=== PATIENT | male | born 1960 | race Caucasian/White ===

== ENCOUNTER 2020-04-08 10:38 | Emergency (ER) | payer OTHER, SELFPAY ==
[2020-04-08 10:45] VITALS: BP 171/78; PULSE 86; RESP 18; TEMP 36.6; O2SAT 95; BMI 27.9
--- NOTE | 2020-04-08 11:24 | ED_ITS ---
HPI - Back Pain/Injury General: Chief Complaint: Back Pain/Injury Stated Complaint: Back Pain/Injury, Trouble Walking, Weakness Time Seen by Provider: 04/08/20 11:14 History of Present Illness: HPI Narrative: Patient is a 59-year-old male who comes to the ED with lower back pain. Patient says symptoms started last Wednesday after he was bent over working on a project at home. He says when he stood up after that he felt some discomfort in his lower back that has continued to get worse. He now has pain that radiates down into the thighs of both right and left legs. He says he is having trouble walking and standing up due to pain. Denies any bladder or bowel incontinence, loss of sensation in the pelvic region or any weakness to extremities. Patient has taken muscle relaxers and a hydrocodone left over from a prior injury and he says nothing has helped. Describes the pain as in the middle of the lower back and its sharp pain. Any movement makes it worse. Associated symptoms: Deny abdominal pain, chills, dysuria, fatigue, fever(s), hematuria, nausea or vomiting Review of Systems Const: Denies: fever(s), chills or fatigue Eyes: Denies: change in vision or eye discomfort ENMT: Denies: throat pain, odynophagia, nasal discharge or nasal congestion Card: Denies: chest pain, palpitations, edema, swelling of feet/ankles, dyspnea on exertion or orthopnea Resp: Denies: dyspnea, productive cough or non-productive cough GI: Denies: abdominal pain, nausea, vomiting, diarrhea, constipation or hematochezia : Denies: flank pain, difficulty urinating, dysuria or hematuria Musc: Reports: back pain; Denies: neck pain or extremity swelling Skin/Breast: Denies: rash or new lesions Neuro: Denies: headache(s), numbness in extremities or weakness in extremities PFSH ED PFSH: Social History Smoking and tobacco status: never smoked Alcohol intake: never Physical Exam Const: COMMON NORMALS: patient oriented x3 and alert GENERAL APPEARANCE: cooperative; not comfortable (Uncomfortable due to pain in lower back.) HENMT: COMMON NORMALS: normocephalic HEAD & SCALP: normocephalic MOUTH: Normal oral and palatal mucosa present THROAT: posterior oropharynx normal and uvula midline Neck/C-Spine: COMMON NORMALS: supple GENERAL: Yes normal visual inspection Resp: COMMON NORMALS: normal respiratory effort, No retractions, No use of accessory muscles and clear to auscultation bilaterally AUSCULTATION: clear to auscultation bilaterally Cardio: COMMON NORMALS: regular rate, regular rhythm, S1 normal heart sound present, S2 normal heart sound present, No gallops present (Cardio), No clicks present (Cardio), No murmurs present (Cardio) and Peripheral pulses 2+ throughout RATE: regular rate RHYTHM: regular rhythm HEART SOUNDS: S1 normal heart sound present and S2 normal heart sound present PERIPHERAL PULSES: Peripheral pulses 2+ throughout GI: COMMON NORMALS: Normal to inspection, nondistended, normoactive bowel sounds present, Soft to palpation, non-tender and no masses PALPATION: Yes Soft to palpation : COMMON NORMALS: Yes no CVA tenderness BLADDER/KIDNEY EXAM: Yes no CVA tenderness Back/Pelvis: COMMON NORMALS: no CVA tenderness LUMBAR SPINE/LOWER BACK: Yes pain with ROM and Yes lumbar spinal tenderness Lumbar spinal tenderness location: L3, L4 and L5 Extremity: COMMON NORMALS: normal to inspection and no pedal edema Neuro: COMMON NORMALS: patient oriented x3 and moves all extremities SENSORIUM/ORIENTATION: Yes alert Skin: GENERAL SKIN EXAM: dry skin Course Vital Signs: Vital signs: Vital Signs Temperature 97.9 F 04/08/20 10:45 Pulse Rate 69 04/08/20 13:54 Respiratory Rate 17 04/08/20 13:54 Blood Pressure 127/80 04/08/20 13:54 Pulse Oximetry 91 04/08/20 13:54 MDM - Back Pain/Injury MDM Narrative: Medical decision making narrative: Patient is a 59-year-old male who comes to the ED with lower back pain that radiates down into both right and left upper legs. Patient describes a lot of pain when walking. Denies any bladder or bowel incontinence, pelvic anesthesia or weakness to extremities. CT lumbar spine performed and it showed Mild progression of multilevel central, subarticular and foraminal stenosis as above. Progressed since 2013. Patient currently sees a neurosurgeon in [place] for cervical spine. Patient was given 1 dose of Solu-Medrol and morphine while here in the ED. He had minimal improvement in pain. Patient was discharged with a prescription for Medrol Dosepak. He was told to take up to 800 mg of ibuprofen every 8 hours to help with pain and inflammation. He was told to contact his neurosurgeon to set up an appointment to reevaluate lower back pain. He was also sent with a CD of CT lumbar spine images to give to his neurosurgeon. Return to ED precautions given. Patient understood and agreed with plan. Imaging Data^: Other CT: Attestation: I personally reviewed and interpreted this imaging study as follows: Radiologist's impression: [address] [place] [address] CT Scan Report Signed Patient: Marcial Villaseñor Unit #: [id number] : 1960 Age/Sex: 59 / M ADM Date: 04/08/20 Loc: ER Room/Bed: Attending Dr: Ordering Provider/Ordering MD: Nemesio Andrade Date of Service: 04/08/20 Procedure(s): CT lumbar spine wo con* [id number] Accession Number(s): [id number] Report Number: [id number] WS: [id number] CT LUMBAR SPINE, noncontrast. HISTORY: low back pain TECHNIQUE: Contiguous 2.5 mm axial imaging are performed. Sagittal and coronal reformats are submitted and reviewed. All CT scans at [facility] use at least one of these dose optimization techniques: automated exposure control; mA and/or kV adjustment per patient size (includes targeted exams where dose is matched to clinical indication); or iterative reconstruction. IV contrast: None DLP: 2624.86 mGy.cm COMPARISON: MRI 05/03/2014 Mild straightening of the normal lumbar lordosis. Mild disc space narrowing at L2-3. Unfused apophysis versus remote fracture from the anterior L3 vertebral body. L1-2: Mild facet joint arthritis and narrowing of the foramen. No high-grade stenosis. L2-3: Mild annular disc bulging and osteophytic ridging. Calcification along the posterior longitudinal ligament with facet joint arthritis. Moderate central and subarticular recess stenosis, LEFT subarticular recess narrowing is greater than the RIGHT. Mild RIGHT and moderate LEFT foraminal stenosis. L3-4: Diffuse annular disc bulging and mild osteophytic ridging. Mild central and subarticular recess stenosis. Moderate to severe LEFT foraminal and moderate RIGHT foraminal stenosis. L4-5: Diffuse annular disc bulging and osteophytic ridging. Shallow central disc protrusion encroaching upon the ventral thecal sac. There is mild central stenosis. Moderate subarticular recess and bilateral foraminal stenosis. L5-S1: Central disc protrusion without significant stenosis. There is very slight encroachment upon the LEFT S1 nerve root but no displacement. LEFT renal cyst mid kidney [address]/CT lumbar spine wo con* [id number] IMPRESSION: 1. Mild progression of multilevel central, subarticular and foraminal stenosis as above. Progressed since 2013. 2. Moderate central and bilateral foraminal stenosis at L2-3 with moderate LEFT foraminal stenosis. 3. Moderate to severe LEFT foraminal and moderate RIGHT foraminal stenosis at L3-4. 4. Moderate bilateral subarticular recess and foraminal stenosis at L4-5. Dictated By: Priyanka Mtz DO Signed By: Priyanka Mtz DO Signed Date/Time: 04/08/20 1255 DD/ 1247 Discharge Plan Discharge Patient Disposition: Home Clinical Impression: Lumbar disc disease with radiculopathy Condition: Stable Prescriptions: New Medrol (Trevin) 4 mg tablets,dose pack See Rx Instructions .ROUTE .COMPLEX Qty: 21 RF: 0 No Action cyclobenzaprine 10 mg tablet 10 mg PO BID PRN (Reason: muscle spasm) 30 Days Qty: 60 RF: 2 lorazepam 1 mg tablet 1 mg PO DAILY PRN (Reason: Sleep) RF: 0 Discharge Orders: Discharge Order (Routine); Ordered 04/08/20 Ordered By: Nemesio Andrade Referrals: Alon Salazar MD [Primary Care Provider] - Discharge Diet: Regular Discharge Activity: Increase activity as tolerated Patient Instructions: Lumbar Disc Herniation (ED), Lumbar Radiculopathy (ED) Activity Restrictions/Additional Instructions: Follow-up with medical provider as directed. Contact your neurosurgeon today or tomorrow morning to discuss ED visit and lower back pain. Take medications as prescribed. You can take dele-zuz-idtimns ibuprofen up to 800 mg dose every 8 hours. Return to the ER or your medical provider if condition worsens. Please read and understand discharge instructions. If any questions, please ask. Coding Level of Care Code ED Answering Service Operator for Chg Fwd Exam Comprehensive
--- NOTE | 2020-04-08 11:35 | CT_ITS ---
WS: [id number] CT LUMBAR SPINE, noncontrast. HISTORY: low back pain TECHNIQUE: Contiguous 2.5 mm axial imaging are performed. Sagittal and coronal reformats are submitte d and reviewed. All CT scans at [facility] use at least one of these dose optimization te chniques: automated exposure control; mA and/or kV adjustment per patient size (includes targeted exa ms where dose is matched to clinical indication); or iterative reconstruction. IV contrast: None DLP: 2624.86 mGy.cm COMPARISON: MRI 05/03/2014 Mild straightening of the normal lumbar lordosis. Mild disc space narrowing at L2-3. Unfused apophysi s versus remote fracture from the anterior L3 vertebral body. L1-2: Mild facet joint arthritis and narrowing of the foramen. No high-grade stenosis. L2-3: Mild annular disc bulging and osteophytic ridging. Calcification along the posterior longitudin al ligament with facet joint arthritis. Moderate central and subarticular recess stenosis, LEFT subar ticular recess narrowing is greater than the RIGHT. Mild RIGHT and moderate LEFT foraminal stenosis. L3-4: Diffuse annular disc bulging and mild osteophytic ridging. Mild central and subarticular recess stenosis. Moderate to severe LEFT foraminal and moderate RIGHT foraminal stenosis. L4-5: Diffuse annular disc bulging and osteophytic ridging. Shallow central disc protrusion encroachi ng upon the ventral thecal sac. There is mild central stenosis. Moderate subarticular recess and bila teral foraminal stenosis. L5-S1: Central disc protrusion without significant stenosis. There is very slight encroachment upon t he LEFT S1 nerve root but no displacement. LEFT renal cyst mid kidney [address]/CT lumbar spine wo con* [id number] IMPRESSION: 1. Mild progression of multilevel central, subarticular and foraminal stenosis as above. Progressed since 2013. 2. Moderate central and bilateral foraminal stenosis at L2-3 with moderate LEF T foraminal stenosis. 3. Moderate to severe LEFT foraminal and moderate RIGHT foraminal stenosis at L3-4. 4. Moderate bilateral subarticular recess and foraminal stenosis at L4-5.
[2020-04-08 12:17] VITALS: BP 118/80; PULSE 75; RESP 16; O2SAT 92
[2020-04-08] MEDS: morphine 4 mg/mL SDV 1 mL IM (12:22)
[2020-04-08] MEDS: orphenadrine 30 mg/mL Inj 2 mL 60 MG IM (12:24)
[2020-04-08 13:39] VITALS: BP 127/80; PULSE 69; RESP 16; O2SAT 92
[2020-04-08 13:54] VITALS: BP 127/80; PULSE 69; RESP 17; O2SAT 91
== END 2020-04-08 13:55 | disposition home or self-care (01) ==
PROVIDERS: Emergency Provider Physician Assistant; PCP Family Medicine
DX: M51.16 Intervertebral disc disorders with radiculopathy, lumbar region (principal)
CPT/HCPCS: 12345; 72131; 96372; 99281; 99283; J2270; J2360; J2930

== ENCOUNTER 2022-08-13 09:19 | Outpatient (CLI) | payer BC, SELFPAY ==
--- NOTE | 2022-08-13 09:30 | MR_ITS ---
WS: [id number] MRI CERVICAL SPINE NONCONTRAST AND CONTRAST TECHNIQUE: Sagittal T1, T2 and STIR imaging. Axial T2, gradient, and fiesta imaging. Postgadolinium i maging was obtained. CLINICAL INFORMATION: worsening right sided neck pain s/p neck surgery COMPARISON: February 2011. FINDINGS: Straightening of the normal cervical lordosis. Prior postoperative changes anterior cervical interbod y fusion C4-C7 with interbody fusion grafts. Postoperative changes with additional fusion since 2010. Cord signal is normal. No high-grade central canal stenosis. No abnormal gadolinium enhancement. C2-C3: Mild facet arthropathy. Mild LEFT bony foraminal narrowing. Mild facet arthropathy. Spinal can al is patent. C3-C4: Small central disc protrusion with indentation on the cervical cord. Mild central canal stenos is. This is new compared to previous. Moderate LEFT and mild RIGHT bony foraminal narrowing. Mild fac et arthropathy. C4-C5: Prior postoperative changes. Spinal canal is patent. Mild bilateral bony foraminal narrowing. C5-C6: Prior postoperative changes. Mild to moderate LEFT and no significant RIGHT foraminal narrowin g. Spinal canal is patent. C6-C7: Moderate LEFT and mild RIGHT bony foraminal narrowing. Spinal canal is patent. C7-T1: Mild LEFT and no significant RIGHT foraminal narrowing. Spinal canal is patent. Visualized brain stem structures: Normal. Prevertebral soft tissues: Normal. MR/MR cervical spine wo/w [id number] IMPRESSION: 1. Small central disc protrusion C3-C4 with mild central canal stenosis and sl ight indentation cervical cord. This is new from the previous examinations. 2. Spinal canal is otherwise patent. 3. Multilevel moderate bony foraminal narrowing worse at LEFT C3-C4, LEFT C4-C 5, LEFT C5-C6 and LEFT C6-C7.
[2022-08-13] MEDS: gadobenate dimeglumine 20 mL vial IV (11:37)
== END 2022-08-13 09:20 | disposition home or self-care (01) ==
PROVIDERS: PCP Family Medicine; Visit Provider Family Medicine
DX: Z98.890 Other specified postprocedural states (principal); M50.21 Other cervical disc displacement, high cervical region; M48.02 Spinal stenosis, cervical region
CPT/HCPCS: 72156; A9577

== ENCOUNTER → 2023-05-27 14:47 | Outpatient (BNVA) | payer BC, SELFPAY | PROVIDERS: PCP Family Medicine; Visit Provider Family Medicine | DX: E16.2 Hypoglycemia, unspecified (principal); R51.9 Headache, unspecified; M54.2 Cervicalgia; Z98.890 Other specified postprocedural states | CPT/HCPCS: 82962 ==

== ENCOUNTER 2023-06-15 16:23 | Outpatient (CLI) | payer BC, SELFPAY ==
--- NOTE | 2023-06-15 16:30 | CT_ITS ---
WS: [id number] CT HEAD NONCONTRAST HISTORY: R51.9 - Headache, unspecified TECHNIQUE: Contiguous axial imaging performed through the brain in 2.5 mm imaging. Bone and soft tiss ue windows. Sagittal and coronal reformats reviewed. All CT scans at [facility] use at least one of these dose optimization techniques: automated exposure control; mA and/or kV adjustment per pa tient size (includes targeted exams where dose is matched to clinical indication); or iterative recon struction. DLP: 1064.11 mGy.cm COMPARISON: 03/13/2011 No acute intracranial hemorrhage, midline shift or mass effect. Very mild atrophy and small vessel ischemic disease. No prior infarcts. Ventricles: Normal size with no hydrocephalus. No inferior displacement of the cerebellar tonsils. Paranasal sinuses: As visualized are clear. Mastoid air cells: Well pneumatized. Calvarium and scalp: Skull is intact with no soft tissue edema or swelling. IMPRESSION: 1. No acute intracranial hemorrhage or edema. No mass effect. 2. No hydrocephalus. 3. Mild volume loss and small vessel ischemic disease.
== END 2023-06-15 16:24 | disposition home or self-care (01) ==
LOC: RAD 16:23
PROVIDERS: PCP Family Medicine; Visit Provider Family Medicine
DX: R51.9 Headache, unspecified (principal); I67.89 Other cerebrovascular disease
CPT/HCPCS: 70450

== ENCOUNTER → 2023-09-29 12:52 | Outpatient (BNVA) | payer BC, SELFPAY | PROVIDERS: PCP Family Medicine; Visit Provider Family Medicine | DX: E03.9 Hypothyroidism, unspecified (principal); K21.00 Gastro-esophageal reflux disease with esophagitis, without bleeding; F51.01 Primary insomnia | CPT/HCPCS: 80053; 84443; 85025 ==

== ENCOUNTER → 2023-10-13 09:31 | Outpatient (BNVA) | payer BC, SELFPAY | PROVIDERS: PCP Family Medicine; Visit Provider Anesthesiology Pain Medicine | DX: M51.16 Intervertebral disc disorders with radiculopathy, lumbar region (principal) | CPT/HCPCS: 72110; 82270 ==

== ENCOUNTER 2024-07-16 14:29 | Emergency (ER) | payer BC, SELFPAY ==
[2024-07-16 14:45] VITALS: BP 141/95; PULSE 86; TEMP 36.7; O2SAT 94; BMI 29.4
--- NOTE | 2024-07-16 15:20 | ED_ITS ---
HPI - Abdominal Pain 2 General: Chief Complaint: Abdominal Pain Stated Complaint: rt side pain Time Seen by Provider: 07/16/24 14:46 Source: patient and family Mode of arrival: ambulatory Limitations: no limitations History of Present Illness: Patient is a nice 63-year-old male presents to ED today along with significant other for complaints of right sided abdominal pain over the past 5 days or so. Patient states he woke up with pain and it has been constant and significant since. It seemed to worsen yesterday and into today. It does not seem to be affected by eating. He is not having any vomiting or changes in his bowel movements. No urinary symptoms. No fevers. He denies previous abdominal surgeries. Was told at one point he had diverticulitis found on a routine colonoscopy (?). MD elicited complaint: abdominal pain Pertinent past history: none Onset (ago): day(s) Pain Consistency: constant Location: RUQ and RLQ Severity: moderate Radiation: none Migration to: no migration Exacerbating factors: nothing Relieving factors: nothing Associated Symptoms: Reports no associated symptoms; Denies change in bowel habits, chills, constipation, diarrhea, dysuria, fever(s), nausea and vomiting Related Data Home Medications ?Medication ?Instructions ?Recorded ?Confirmed amitriptyline 50 mg tablet 50 mg PO BEDTIME 07/16/24 0 07/16/24 duloxetine 30 mg capsule,delayed 30 mg PO DAILY 07/16/24 release esomeprazole magnesium 20 mg 20 mg PO DAILY 07/16/24 0 07/16/24 capsule,delayed release Allergies Allergy/AdvReac Type Severity Reaction Status Date / Time No Known Allergies Allergy Verified 07/16/24 14:49 Review of Systems 2 Const: Denies: fever(s), chills, body aches, fatigue or malaise Card: Denies: chest pain Resp: Denies: dyspnea GI: Reports: abdominal pain; Denies: nausea, vomiting, diarrhea, constipation or change in bowel habits : Denies: flank pain, difficulty urinating, dysuria, urinary frequency, urinary urgency or urinary hesitancy Musc: Denies: neck pain, back pain, extremity pain, extremity swelling, joint swelling or joint redness Skin/Breast: Denies: rash Neuro: Denies: headache(s), numbness in extremities, weakness in extremities, sensory changes or difficulty walking PFS ED 2 PFSH: Medical History Neck pain with history of cervical spinal surgery Spinal stenosis of cervical region with radiculopathy Social History Smoking and tobacco/nicotine status: never used tobacco/nicotine Alcohol intake: never Substance/Drug Use: never Physical Exam 2 Const: COMMON NORMALS: no acute distress, average body habitus, patient oriented x3, no limitations, healthy appearing, alert and well nourished G ENERAL APPEARANCE: cooperative Eye: COMMON NORMALS: no scleral icterus Neck/C-Spine: COMMON NORMALS: no lymphadenopathy Resp: COMMON NORMALS: normal respiratory effort and clear to auscultation bilaterally AUSCULTATION: clear to auscultation bilaterally Cardio: COMMON NORMALS: regular rate and regular rhythm RATE: regular rate RHYTHM: regular rhythm GI: COMMON NORMALS: Normal to inspection, nondistended, normoactive bowel sounds present, Soft to palpation, No hepatosplenomegaly present and no masses INSPECTION: Yes normal to inspection AUSCULTATION: Yes normoactive bowel sounds PALPATION: Yes Soft to palpation, Yes Tenderness to palpation present (GI) (R middle abdomen. RUQ), Yes Guarding due to palpation present (GI), No Rigid due to palpation and Yes No hepatosplenomegaly present : COMMON NORMALS: Yes no CVA tenderness BLADDER/KIDNEY EXAM: Yes no CVA tenderness Back/Pelvis: COMMON NORMALS: no CVA tenderness Extremity: GENERAL: Yes normal exam except as noted Neuro: COMMON NORMALS: patient oriented x3 SENSORIUM/ORIENTATION: Yes alert Skin: COMMON NORMALS: no rashes or lesions noted GENERAL SKIN EXAM: no rashes or lesions noted Course 2 Vital Signs: Vital signs: Vital Signs Temperature 98.1 F 07/16/24 14:45 Pulse Rate 82 07/16/24 15:22 Blood Pressure 121/81 07/16/24 16:40 Pulse Oximetry 95 07/16/24 16:40 Oxygen Delivery Me thod Room Air 07/16/24 16:40 MDM - Abdominal Pain Medical Decision Making Patient is a 63-year-old male here for right sided abdominal pain over the past several days. Vital signs are stable upon arrival. His blood work here overall is unremarkable. CT abdomen and pelvis showing no acute process. Incidental findings were discussed with patient. Patient will be allowed discharge with return precautions. Medical Records I reviewed the patient's medical records. Lab Data I reviewed the patient's lab results. 07/16/24 14:50 07/16/24 14:50 Labs/Radiology: Radiology Impressions Abdomen/Pelvis CT 07/16/24 15:28 IMPRESSION: 1. No acute abdominopelvic process identified. 2. Few scattered colonic diverticula without evidence of acute diverticulitis. 3. 2.3 cm simple appearing left renal cyst. 4. 3 mm pulmonary nodule within right lower lobe. For patients at low risk (minimal or absent history of smoking and of other known risk factors), no routine follow-up is indicated. For patients at high risk (history of smoking or of other known risk factors), consider optional CT Chest at 12 months. (Reference: Arie) COMMENTS: Consistent with the [employer]'s Incidental Findings Committee white paper (J Am Enrique Radiol 2018): Any incidental renal lesion less than 1 cm or classified as too small to characterize, or any incidental cystic renal lesion characterized as simple-appearing, is likely benign. No follow-up imaging is recommended for these lesions per consensus recommendations based on imaging criteria. REFERENCES: Arie Chawla, et al. Guidelines for Management of Incidental Pulmonary Nodules Detected on CT Images: From the Fleischner Society 2017. Radiology. 2017;284(1):228-243. Laboratory Results WBC 6.28 10^3/uL (3.29-11.43) 07/16/24 14:50 RBC 4.97 10^6/uL (3.85-5.65) 07/16/24 14:50 Hgb 14.60 g/dL (11.27-16.99) 07/16/24 14:50 Hct 44.1 % (37-53) 07/16/24 14:50 MCV 88.7 fl (82-101) 07/16/24 14:50 MCH 29.4 pg (27-33) 07/16/24 14:50 MCHC 33.1 g/dL (30-55) 07/16/24 14:50 RDW 11.9 % (12.1-15.1) L 07/16/24 14:50 Plt Count 261 10^3/cmm (157-399) 07/16/24 14:50 MPV 8.9 fL (7.4-10.4) 07/16/24 14:50 Neut % (Auto) 53.7 % 07/16/24 14:50 Lymph % (Auto) 35.4 % 07/16/24 14:50 [place] % (Auto) 8.0 % 07/16/24 14:50 Eos % (Auto) 2.2 % 07/16/24 14:50 Baso % (Auto) 0.5 % 07/16/24 14:50 Neut # (Auto) 3.38 10^3/uL (1.8-7.7) 07/16/24 14:50 Lymph # (Auto) 2.2 10^3/uL (0.8-4.8) 07/16/24 14:50 [place] # (Auto) 0.5 10^3/uL (0.2-0.9) 07/16/24 14:50 Eos # (Auto) 0.1 10^3/uL (0.0-0.8) 07/16/24 14:50 Baso # (Auto) 0.0 10^3/uL (0.0-0.1) 07/16/24 14:50 Nucleated RBC % (auto) 0 % 07/16/24 14:50 Nucleated RBCs # 0.0 /100WBC 07/16/24 14:50 Sodium 136 mmol/L (136-145) 07/16/24 14:50 Potassium 3.8 mmol/L (3.5-5.1) 07/16/24 14:50 Chloride 103 mmol/L (98-107) 07/16/24 14:50 Carbon Dioxide 22 mmol/L (22-29) 07/16/24 14:50 Anion Gap 14.8 (5-19) 07/16/24 14:50 BUN 10 mg/dL (8-23) 07/16/24 14:50 Creatinine 0.9 mg/dL (0.7-1.2) 07/16/24 14:50 GFR Calculation 85.8 mL/min (90-130) L 07/16/24 14:50 Glucose 128 mg/dL (65-115) H 07/16/24 14:50 Calculated Osmolality 283 mOsm/kg (285-295) L 07/16/24 14:50 Calcium 9.3 mg/dL (8.5-10.5) 07/16/24 14:50 Total Bilirubin 0.3 mg/dL (0.15-1.2) 07/16/24 14:50 AST 18 U/L (0-40) 07/16/24 14:50 ALT 18 U/L (0-41) 07/16/24 14:50 Alkaline Phosphatase 99 U/L (40-130) 07/16/24 14:50 Total Protein 6.7 g/dL (6.6-8.7) 07/16/24 14:50 Albumin 4.3 g/dL (3.5-5.2) 07/16/24 14:50 Globulin 2.4 g/dL (1.3-4.6) 07/16/24 14:50 Lipase 16 U/L (13-60) 07/16/24 14:50 Urine Color Yellow (Yellow) 07/16/24 16:00 Urine Appearance Clear (CLEAR) 07/16/24 16:00 Urine pH 5.5 (5-7) 07/16/24 16:00 Ur Specific [place] 1.020 (1.005-1.030) 07/16/24 16:00 Urine Protein Negative (Negative) 07/16/24 16:00 Urine Glucose (UA) Negative (Normal) 07/16/24 16:00 Urine Ketones Trace (Negative) 07/16/24 16:00 Urine Blood Negative (Negative) 07/16/24 16:00 Urine Nitrate Negative (Negative) 07/16/24 16:00 Urine Bilirubin Negative (Negative) 07/16/24 16:00 Urine Urobilinogen 1.0 mg/dL (Negative) 07/16/24 16:00 Ur Leukocyte Esterase Negative (Negative) 07/16/24 16:00 Amorphous Sediment Not Reportable 07/16/24 16:00 All radiology interpretation(s) finalized by discharge Discharge Plan Discharge Patient Disposition: Home Clinical Impression: Right-sided abdominal pain of unknown etiology Condition: Stable Prescriptions: No Action amitriptyline 50 mg tablet 50 mg PO BEDTIME duloxetine 30 mg capsule,delayed release(DR/EC) 30 mg PO DAILY esomeprazole magnesium 20 mg capsule,delayed release(DR/EC) 20 mg PO DAILY Rx Instructions: take 1 capsule BY MOUTH EVERY DAY Discharge Orders: Discharge ED (Routine); Ordered 07/16/24 Ordered By: Jenni Pineda Referrals: Alon Salazar MD [Primary Care Provider] - Patient Instructions: Abdominal Pain (ED) Activity Restrictions/Additional Instructions: As we discussed, your blood work here overall was unremarkable. CT abdomen and pelvis did not show any acute abnormalities. Incidental findings were discussed with you including a small right lower lobe pulmonary nodule, small hiatal hernia, small simple left kidney cyst. He may follow-up with primary care regarding the pulmonary nodule. As we discussed, you may return to the emergency department for any worsening or new/concerning symptoms you may have. I hope you begin to feel better soon. Print Language: Yoruba Coding Level of Care Code ED International Nurse for Dana Hodges
[2024-07-16 15:22] VITALS: PULSE 82; O2SAT 95
[2024-07-16 15:25] LABS: Basophils % 0.5 %; Eosinophils # 0.1 10^3/uL (0.0-0.8); Eosinophils % 2.2 %; Hematocrit 44.1 % (37-53); Lymphocytes # 2.2 10^3/uL (0.8-4.8); Lymphocytes % 35.4 %; Mean Corpuscular HGB Conc 33.1 g/dL (30-55); Mean Corpuscular Hemoglobin 29.4 pg (27-33); Mean Corpuscular Volume 88.7 fl (82-101); Mean Platelet Volume 8.9 fL (7.4-10.4); Monocytes # 0.5 10^3/uL (0.2-0.9); Neutrophils # 3.38 10^3/uL (1.8-7.7); Neutrophils % 53.7 %; Nucleated Red Blood Cells % 0 %; Platelet Count 261 10^3/cmm (157-399); Red Blood Count 4.97 10^6/uL (3.85-5.65); Red Cell Distribution Width 11.9 % (12.1-15.1); White Blood Count 6.28 10^3/uL (3.29-11.43)
--- NOTE | 2024-07-16 15:28 | CTR_ITS ---
PROCEDURE INFORMATION: Exam: CT Abdomen And Pelvis With Contrast Exam date and time: 07/16/2024 3:51 PM Age: 63 years old Clinical indication: Abdominal pain; Localized; Right upper quadrant (ruq); Additional info: R abdominal pain TECHNIQUE: Imaging protocol: Computed tomography of the abdomen and pelvis with contrast. Radiation optimization: All CT scans at this facility use at least one of these dose optimization techniques: automated exposure control; mA and/or kV adjustment per patient size (includes targeted exams where dose is matched to clinical indication); or iterative reconstruction. Contrast material: OMNI 350; Contrast volume: 100 ml; Contrast route: INTRAVENOUS (IV); COMPARISON: CR XR lumbar spine min 4V [id number] 10/13/2023 9:35 AM RADIATION DOSE METRICS: Total DLP (mGy-cm): 835.47 FINDINGS: Lungs: 3 mm pulmonary nodule within right lower lobe (5/3). Diaphragm: Small hiatal hernia. Liver: Few subcentimeter hypodensities within the liver, too small to characterize but statistically may represent simple hepatic cysts. Gallbladder and biliary ducts: Gallbladder is partially distended. Pancreas: Normal. No ductal dilation. Spleen: Normal. No splenomegaly. Adrenal glands: Normal. No mass. Kidneys and ureters: 2.3 cm simple left renal cyst. No hydronephrosis or obstructing calculi bilaterally. Stomach and bowel: Few scattered colonic diverticula, without CT evidence of acute diverticulitis. Appendix: No evidence of appendicitis. Intraperitoneal space: Unremarkable. No free air. No significant fluid collection. Vasculature: Unremarkable. No abdominal aortic aneurysm. Lymph nodes: Unremarkable. No enlarged lymph nodes. Urinary bladder: Unremarkable as visualized. Reproductive: Unremarkable as visualized. Bones/joints: Multilevel degenerative changes within the visualized lumbar spine with mild straightening of normal lumbar lordosis. Soft tissues: Tiny fat containing umbilical hernia. CT/CT abdomen pelvis w con* [id number] IMPRESSION: 1. No acute abdominopelvic process identified. 2. Few scattered colonic diverticula without evidence of acute diverticulitis. 3. 2.3 cm simple appearing left renal cyst. 4. 3 mm pulmonary nodule within right lower lobe. For patients at low risk (minimal or absent history of smoking and of other known risk factors), no routine follow-up is indicated. For patients at high risk (history of smoking or of other known risk factors), consider optional CT Chest at 12 months. (Reference: Arie) COMMENTS: Consistent with the [place] [employer]'s Incidental Findings Committee white paper (J Am Enrique Radiol 2018): Any incidental renal lesion less than 1 cm or classified as too small to characterize, or any incidental cystic renal lesion characterized as simple-appearing, is likely benign. No follow-up imaging is recommended for these lesions per consensus recommendations based on imaging criteria. REFERENCES: Arie Chawla, et al. Guidelines for Management of Incidental Pulmonary Nodules Detected on CT Images: From the Fleischner Society 2017. Radiology. 2017;284(1):228-243.
[2024-07-16 15:36] LABS: Alanine Aminotransferase 18 U/L (0-41); Albumin Level 4.3 g/dL (3.5-5.2); Alkaline Phosphatase 99 U/L (40-130); Anion Gap 14.8 (5-19); Aspartate Amino Transferase 18 U/L (0-40); Blood Urea Nitrogen 10 mg/dL (8-23); Calcium 9.3 mg/dL (8.5-10.5); Carbon Dioxide 22 mmol/L (22-29); Chloride 103 mmol/L (98-107); Creatinine Clr Calc Pharmacy 98.7432; Globulin 2.4 g/dL (1.3-4.6); Glomerular Filtration Rate 85.8 mL/min (90-130); Glucose 128 mg/dL (65-115); Lipase 16 U/L (13-60); Osmolality Calculated 283 mOsm/kg (285-295); Potassium 3.8 mmol/L (3.5-5.1); Sodium 136 mmol/L (136-145); Total Bilirubin 0.3 mg/dL (0.15-1.2); Total Protein 6.7 g/dL (6.6-8.7)
[2024-07-16] MEDS: morphine 4 mg/mL SDV 1 mL IVP (15:45)
[2024-07-16] MEDS: ondansetron 2 mg/ML SDV 2 mL 4 MG IVP (15:45)
[2024-07-16] MEDS: iohexol 350 mg/mL 500 mL Btl (per mL) IV (15:51)
[2024-07-16 16:08] LABS: Add Urine Microscopic? NO
[2024-07-16 16:10] LABS: Bilirubin Urine Negative (Negative); Blood Urine Negative (Negative); Glucose Urine UA Negative (Normal); Ketones Urine Trace (Negative); Leukocyte Esterase Urine Negative (Negative); Nitrate Urine Negative (Negative); Protein Urine Negative (Negative); Urine Appearance Clear (CLEAR); Urine Color Yellow (Yellow); pH Urine 5.5 (5-7)
[2024-07-16 16:18] LABS: Charge for UA Resulting for Rev
[2024-07-16 16:40] VITALS: BP 121/81; O2SAT 95
[2024-07-16 17:49] VITALS: BP 137/88; PULSE 76; O2SAT 98
== END 2024-07-16 17:49 | disposition home or self-care (01) ==
PROVIDERS: Emergency Provider Physician Assistant; PCP Family Medicine
DX: R10.9 Unspecified abdominal pain (principal)
CPT/HCPCS: 74177; 80053; 81003; 83690; 85025; 96374; 96375; 99285; J2270; J2405

== ENCOUNTER → 2024-08-29 14:52 | Outpatient (BNVA) | payer BC, SELFPAY | PROVIDERS: PCP Family Medicine; Visit Provider Orthopaedic Surgery | DX: M51.16 Intervertebral disc disorders with radiculopathy, lumbar region (principal); M54.2 Cervicalgia | CPT/HCPCS: 72050; 72110 ==

== ENCOUNTER 2024-09-18 09:02 | Outpatient (RCR) | payer BC, SELFPAY | END 2024-09-20 23:59 | disposition home or self-care (01) | LOC: SPT 09:02 | PROVIDERS: Visit Provider Orthopaedic Surgery | DX: M54.2 Cervicalgia (principal); G89.29 Other chronic pain | CPT/HCPCS: 97162 ==

== ENCOUNTER 2024-09-21 05:00 | Outpatient (RCR) | payer BC, SELFPAY | END 2024-10-18 13:47 | disposition home or self-care (01) | LOC: SPT 05:00 | PROVIDERS: Visit Provider Orthopaedic Surgery | DX: M54.2 Cervicalgia (principal); G89.29 Other chronic pain | CPT/HCPCS: 97110; 97140; 97530 ==

== ENCOUNTER → 2024-11-14 10:34 | Outpatient (BNVA) | payer BC, SELFPAY | PROVIDERS: PCP Family Medicine; Visit Provider Family Medicine | DX: I88.9 Nonspecific lymphadenitis, unspecified (principal) | CPT/HCPCS: 85025 ==

== ENCOUNTER 2024-11-23 10:35 | Outpatient (CLI) | payer BC, SELFPAY ==
--- NOTE | 2024-11-23 10:45 | US_ITS ---
WS: [id number] ULTRASOUND SOFT TISSUES LEFT inguinal region. HISTORY: R59.0 - Localized enlarged lymph nodes COMPARISON: CT 07/16/2024 TECHNIQUE: 2-D and color Doppler imaging is submitted. Lymph nodes are identified in the LEFT inguinal region. These lymph nodes are not significantly enlarged but they are very ill-defined. Moderate amount of soft tissue edema through the tissues of the LEFT inguinal region without increased vascularity. No collection to suggest an abscess. US/US soft tissue/extremity [id number] IMPRESSION: 1. Moderate amount of edema in the soft tissues of the LEFT inguinal region. N o abscess. Phlegmon versus focal reactive edema. 2. There are a few adjacent small lymph nodes in the inguinal region which are poorly defined and probably reactive. These findings are new since the CT of . 3. Recommendation: Consider evaluation by CT abdomen and pelvis with IV contra st to better evaluate the pelvis and LEFT inguinal region.
== END 2024-11-23 10:36 | disposition home or self-care (01) ==
LOC: RAD 10:42
PROVIDERS: PCP Family Medicine; Visit Provider Family Medicine
DX: R59.0 Localized enlarged lymph nodes (principal); R60.0 Localized edema; R93.89 Abnormal findings on diagnostic imaging of other specified body structures
CPT/HCPCS: 76882

== ENCOUNTER 2024-11-30 15:02 | Outpatient (CLI) | payer BC, SELFPAY ==
[2024-11-30] MEDS: iohexol 350 mg/mL 500 mL Btl (per mL) PO (15:42)
--- NOTE | 2024-11-30 16:00 | CTR_ITS ---
PROCEDURE INFORMATION: Exam: CT Abdomen And Pelvis Without And With Contrast Exam date and time: 11/30/2024 4:08 PM Age: 64 years old Clinical indication: Other: Localized enlarged lymph nodes; Left lower groin area swollen lymph node? X 1 month; Additional info: R59.0 - localized enlarged lymph nodes TECHNIQUE: Imaging protocol: Computed tomography of the abdomen and pelvis without and with contrast. Radiation optimization: All CT scans at this facility use at least one of these dose optimization techniques: automated exposure control; mA and/or kV adjustment per patient size (includes targeted exams where dose is matched to clinical indication); or iterative reconstruction. Contrast material: OMNI 350; Contrast volume: 100 ml; Contrast route: INTRAVENOUS (IV); COMPARISON: CT abdomen pelvis w con* [id number] 07/16/2024 3:51 PM RADIATION DOSE METRICS: Total DLP (mGy-cm): 1182.79 FINDINGS: Lungs: The lung bases are clear. Diaphragm: Small hiatus hernia. Liver: Hepatic steatosis. The liver is enlarged measuring about 20.5 cm. There are two small hypodense lesions in the right lobe of the liver measuring up to 1.2 cm and represent cysts. Gallbladder and biliary ducts: The gallbladder is unremarkable with no calcified stones visualized and no strandy inflammatory changes surrounding the gallbladder. Pancreas: The pancreas is normal in appearance. No evidence of pancreatic ductal dilatation. Spleen: The spleen is normal in appearance. Adrenal glands: The adrenal glands are normal in appearance. Kidneys and ureters: The kidneys are normal in appearance. There is a simple appearing 3.7 cm left renal cortical cyst. No evidence of hydronephrosis or hydroureter. No nephroureteral calculi are identified. Stomach and bowel: The small bowel loops are not thickened and are nondilated. There is colonic diverticulosis but no evidence of diverticulitis. Appendix: The appendix is normal in appearance. No evidence of appendicitis. Intraperitoneal space: Unremarkable. No free air. No significant fluid collection. Vasculature: Unremarkable. No abdominal aortic aneurysm. Lymph nodes: Several small retroperitoneal lymph nodes which measure up to 1.2 cm. There is adenopathy in the left external iliac chain measuring up to 1.6 cm in short axis dimension. There is suspected necrotic left inguinal adenopathy measuring up to 2.9 cm. The adenopathy is likely reactive. Urinary bladder: There is urinary bladder wall thickening which could be secondary to underdistention versus cystitis. Consider UA. Reproductive: Unremarkable as visualized. Bones/joints: Multilevel chronic degenerative changes in the visualized spine. No acute osseous lesions identified. Soft tissues: Unremarkable. CT/CT abdomen pelvis wo/w [id number] IMPRESSION: 1. Adenopathy in the left inguinal, left external iliac chain and retroperitoneum. There is a large necrotic appearing lymph node in the left groin. The adenopathy is likely reactive. 2. Hepatic steatosis and hepatomegaly. 3. Urinary bladder wall thickening which could be secondary to underdistention versus cystitis. Consider UA. 4. Colonic diverticulosis but no evidence of diverticulitis. COMMENTS: Consistent with the [employer]'s Incidental Findings Committee white paper (J Am Enrique Radiol 2018): Any incidental renal lesion less than 1 cm or classified as too small to characterize, or any incidental cystic renal lesion characterized as simple-appearing, is likely benign. No follow-up imaging is recommended for these lesions per consensus recommendations based on imaging criteria.
[2024-11-30 16:04] LABS: Blood Urea Nitrogen 15 mg/dL (8-23)
[2024-11-30] MEDS: iohexol 350 mg/mL 500 mL Btl (per mL) IV (16:11)
== END 2024-11-30 15:03 | disposition home or self-care (01) ==
PROVIDERS: PCP Family Medicine; Visit Provider Family Medicine
DX: R59.0 Localized enlarged lymph nodes (principal); K76.0 Fatty (change of) liver, not elsewhere classified; K57.30 Diverticulosis of large intestine without perforation or abscess without bleeding
CPT/HCPCS: 74178; 82565; 84520

== ENCOUNTER 2025-02-11 07:56 | Emergency (ER) | payer BC, SELFPAY ==
[2025-02-11 08:05] VITALS: BP 142/88; PULSE 84; RESP 18; TEMP 36.7; O2SAT 92; BMI 29.0
--- NOTE | 2025-02-11 08:21 | XRR_ITS ---
PROCEDURE INFORMATION: Exam: XR Lumbosacral Spine Exam date and time: 02/11/2025 8:31 AM Age: 64 years old Clinical indication: Pain; Lumbago; Additional info: Chronic lower back pain with RT hip involvement; Pain wraps around anteriorly to RT hip; No known injury; PT states pain has gotten/been worse over the last week TECHNIQUE: Imaging protocol: Radiologic exam of the lumbosacral spine. Views: 2 or 3 views. COMPARISON: CR XR lumbar spine min 4V [id number] 10/13/2023 9:35 AM FINDINGS: Bones/joints: There is a chronic deformity of the anterior superior endplate of L3 with adjacent irregular osseous density which may reflect a limbus vertebrae. There are stable [id number] degenerative changes of the endplates at L2-L3, L3-L4 and L4-L5 with disc space narrowing, endplate sclerosis and marginal osteophyte formation. There is stable grade 1 retrolisthesis of L3 on L4. No acute fractures. There are Schmorl's nodes within the inferior endplates of T12 and L1 Soft tissues: Unremarkable. XR/XR lumbar spine 2-3V* [id number] IMPRESSION: 1. No acute fracture. 2. Unchanged [id number] lumbar spondylosis
--- NOTE | 2025-02-11 08:21 | XRR_ITS ---
PROCEDURE INFORMATION: Exam: XR Right Hip Exam date and time: 02/11/2025 8:31 AM Age: 64 years old Clinical indication: Hip pain; Right hip; Additional info: Chronic lower back pain with RT hip involvement; Pain wraps around anteriorly to RT hip; No known injury; PT states pain has gotten/been worse over the last week TECHNIQUE: Imaging protocol: Radiologic exam of the right hip. Views: 1 view hip with pelvis when performed. COMPARISON: CT abdomen pelvis wo/w [id number] 11/30/2024 4:08 PM FINDINGS: Bones/joints: Alignment is within normal limits. There is no evidence of acute fracture or dislocation. Small sclerotic foci are seen within the right femoral neck, suspicious for bone islands Soft tissues: Unremarkable. XR/XR hip RT 2-3V wo/w pel* [id number] IMPRESSION: No acute osseous abnormality
[2025-02-11 08:22] VITALS: BP 142/88; PULSE 79; RESP 16; O2SAT 93
--- NOTE | 2025-02-11 08:37 | ED_ITS ---
HPI - Back Pain/Injury General: Chief Complaint: Back Pain/Injury Stated Complaint: lower back pain Time Seen by Provider: 02/11/25 08:03 Source: patient Mode of arrival: ambulatory Limitations: no limitations History of Present Illness: 64-year-old male whose had a history of back pain in the past states he did some heavy lifting 2 weeks ago and after that he has been having increased pain of his lower back going down his right side. States he saw his PCP last week started him on steroids states had some improvement but is continued to worsen he states the pain is sharp in nature worse with movement he denies any bowel or bladder incontinence denies any fevers Associated symptoms: Deny abdominal pain, chills, fever(s), nausea or vomiting Related Data Home Medications ?Medication ?Instructions ?Recorded ?Confirmed amitriptyline 50 mg tablet 50 mg PO BEDTIME 07/16/24 0 02/07/25 duloxetine 30 mg capsule,delayed 30 mg PO DAILY 02/07/25 release Previous Rx's ?Medication ?Instructions ?Recorded esomeprazole magnesium 20 mg See Rx Instructions .Arslan augustine 09/11/24 capsule,delayed release .COMPLEX #90 caps lactulose 10 gram/15 mL oral 20 g (30 mL) PO BID #1,20 0 mL 12/07/24 solution cyclobenzaprine 10 mg tablet See Rx Instructions .Arslan augustine 01/05/25 .COMPLEX #60 tabs prednisone 20 mg tablet 20 mg PO .COMPLEX #24 tabs 0 02/07/25 naproxen 500 mg tablet (Naprosyn) 500 mg PO BID PRN pa in #20 tabs 02/11/25 oxycodone-acetaminophen 7.5 mg-325 1 tab PO Q12H PRN p ain #14 tabs 02/11/25 mg tablet (Percocet) Allergies Allergy/AdvReac Type Severity Reaction Status Date / Time No Known Allergies Allergy Verified 02/07/25 15:03 Review of Systems Const: Denies: fever(s), chills, body aches or change in appetite ENMT: Denies: throat pain or dental pain Card: Denies: chest pain Resp: Denies: dyspnea GI: Denies: abdominal pain, nausea, vomiting or diarrhea : Denies: difficulty urinating Musc: Reports: neck pain; Denies: back pain PFSH ED PFSH: Medical History Neck pain with history of cervical spinal surgery Spinal stenosis of cervical region with radiculopathy Social History Smoking and tobacco/nicotine status: never used tobacco/nicotine Alcohol intake: never Substance/Drug Use: never Physical Exam Const: COMMON NORMALS: no acute distress, patient oriented x3 and healthy appearing HENMT: COMMON NORMALS: normocephalic and atraumatic HEAD & SCALP: normocephalic and atraumatic Eye: COMMON NORMALS: conjunctivae normal CONJUNCTIVA: Yes conjunctivae normal Neck/C-Spine: COMMON NORMALS: full ROM and supple Chest: COMMONS NORMALS: normal inspection of the chest Resp: COMMON NORMALS: normal respiratory effort, No retractions, No use of accessory muscles and clear to auscultation bilaterally AUSCULTATION: clear to auscultation bilaterally Cardio: COMMON NORMALS: regular rate, regular rhythm and No murmurs present (Cardio) RATE: regular rate RHYTHM: regular rhythm GI: COMMON NORMALS: Normal to inspection, nondistended, normoactive bowel sounds present, Soft to palpation, non-tender and no masses PALPATION: Yes Soft to palpation Back/Pelvis: OTHER: Tenderness over right lower back no midline tenderness no saddle anesthesia Extremity: COMMON NORMALS: normal to inspection and full ROM Neuro: COMMON NORMALS: patient oriented x3, moves all extremities and no focal motor deficits Psych: COMMON NORMALS: mental status grossly normal, Normal thought process present and cooperative THOUGHT PROCESS: Normal thought process present Skin: COMMON NORMALS: no rashes or lesions noted and no wounds GENERAL SKIN EXAM: no rashes or lesions noted Course Vital Signs: Vital signs: Vital Signs Temperature 98.1 F 02/11/25 08:05 Pulse Rate 79 02/11/25 08:22 Respiratory Rate 18 02/11/25 08:45 Blood Pressure 142/88 02/11/25 08:22 Pulse Oximetry 93 02/11/25 08:22 Oxygen Delivery Me thod Room Air 02/11/25 08:05 MDM - Back Pain/Injury Medical Decision Making Patient presents here with low back pain with sciatica he has pain is improved here after pain meds imaging here showed no acute fractures. He is scheduled for an MRI in a week and a half. He has no signs of cord compression or epidural abscess no bowel or bladder incontinence no saddle anesthesia. Will prescribe pain medication along with anti-inflammatories he is to ice his back he is to follow-up with his PCP I went over his images and plan he understands and agrees Medical Records I reviewed the patient's medical records. XR interpretation done by ED provider, pending radiology final review ED provider radiology interpretation(s): xr right hip: no acute findings xr lumbar spine: no acute findings Discharge Plan Discharge Patient Disposition: Home Clinical Impression: Back pain Qualifiers: Back pain location: low back pain Chronicity: acute Back pain laterality: right Sciatica presence: with sciatica Sciatica laterality: sciatica of right side Qualified Code(s): M54.41 - Lumbago with sciatica, right side Condition: Stable Prescriptions: New naproxen [Naprosyn] 500 mg tablet 500 mg PO BID PRN (Reason: pain) Qty: 20 0RF oxycodone-acetaminophen [Percocet] 7.5-325 mg tablet 1 tab PO Q12H PRN (Reason: pain) Qty: 14 0RF No Action prednisone 20 mg tablet 20 mg PO .COMPLEX Qty: 24 0RF Rx Instructions: 4 tabs day 1 and 2, decrease by one half tablet daily until gone.4, 4, 3 1/2, 3, 2 1/2.... esomeprazole magnesium 20 mg capsule,delayed release(DR/EC) See Rx Instructions .ROUTE .COMPLEX Qty: 90 1RF Dose Instruction: take 1 capsule BY MOUTH EVERY DAY Rx Instructions: take 1 capsule BY MOUTH EVERY DAY lactulose 10 gram/15 mL solution 20 g PO BID Qty: 1200 1RF cyclobenzaprine 10 mg tablet See Rx Instructions .ROUTE .COMPLEX Qty: 60 2RF Dose Instruction: TAKE ONE TABLET BY MOUTH TWICE DAILY as needed for MUSCLE SPASMS * take primarily AT BEDTIME or end of work DAY * Rx Instructions: TAKE ONE TABLET BY MOUTH TWICE DAILY as needed for MUSCLE SPASMS * take primarily AT BEDTIME or end of work DAY * amitriptyline 50 mg tablet 50 mg PO BEDTIME duloxetine 30 mg capsule,delayed release(DR/EC) 30 mg PO DAILY Discharge Orders: Discharge ED (Routine); Ordered 02/11/25 Ordered By: Christianne Canales Referrals: Alon Salazar MD [Primary Care Provider, [facility]] - 4-7 days Discharge Diet: Advance as tolerated Discharge Activity: Resume usual activity Patient Instructions: Back Pain (ED), Opioid Safety Print Language: Kiswahili Coding Level of Care Code ED [employer] for Dana Hodges
[2025-02-11 08:45] VITALS: RESP 18
[2025-02-11] MEDS: morphine 4 mg/mL SDV 1 mL IM (08:45)
[2025-02-11 09:44] VITALS: BP 147/70; PULSE 71; O2SAT 96
--- NOTE | 2025-02-12 15:26 | DCPLANNER ---
messaged ortho for er f/u
== END 2025-02-11 09:44 | disposition home or self-care (01) ==
PROVIDERS: Emergency Provider Emergency Medicine; PCP Family Medicine
DX: M54.41 Lumbago with sciatica, right side (principal)
CPT/HCPCS: 36415; 72100; 73502; 96372; 99284; J1100; J1885; J2270; J9999

== ENCOUNTER 2025-02-21 07:17 | Outpatient (CLI) | payer BC, SELFPAY ==
--- NOTE | 2025-02-21 07:15 | MR_ITS ---
WS: [id number] MRI LUMBAR SPINE NONCONTRAST TECHNIQUE: Sagittal T1, T2 and STIR imaging. Axial T1 and T2 imaging. CLINICAL INFORMATION: M51.16 - Intervertebral disc disorders with radiculopathy... COMPARISON: MRI 2014 FINDINGS: Mild lumbar curve. No acute compression. Schmorl's nodes in the lumbar spine. Disc bulging worse at L2-3 L3-4 and L4-5. Disc desiccation has progressed throughout the lumbar spine compared to previous. Cervical fusion visualized on the center director imaging. L1-L2: Mild annular bulging. Mild facet arthropathy. Spinal canal is patent. Slight effacement of the ventral thecal sac. Foramen are patent. L2-L3: Broad-based central disc protrusion with moderate central canal stenosis and impingement of the traversing L3 nerve roots bilaterally. Moderate facet arthropathy. Foramen are patent. Central disc protrusion was present previously but has progressed with progressed central canal stenosis at this level. Recommend spine surgery consultation. L3-L4: Mild disc bulging with a small new LEFT subarticular protrusion impinging the traversing LEFT L4 nerve root. Mild central canal stenosis. This is progressed compared to previous. Mild bilateral foraminal narrowing. Moderate facet arthropathy. L4-L5: Mild annular bulging. Mild central canal stenosis with impingement on the traversing L5 nerve roots bilaterally progressed compared to previous. Moderate facet arthropathy. LEFT foraminal protrusion slightly impinges the exiting LEFT L4 nerve root with mild to moderate LEFT foraminal narrowing. Mild RIGHT foraminal narrowing. L5-S1: Mild annular bulging. Tiny shallow central protrusion. Spinal canal is patent. Moderate facet arthropathy. Foramen are patent. Visualized pelvic bony structures: Normal. Paravertebral soft tissues: Normal. 3.5 cm LEFT renal cyst. MR/MR lumbar spine wo con* [id number] IMPRESSION: 1. Moderate central canal stenosis L2-3 progressed compared to previous. Recom mend spine surgery consultation. Broad-based central protrusion at this level. 2. New LEFT subarticular protrusion L3-4 impinges the traversing LEFT L4 nerve root with mild central canal stenosis. Findings at this level are also new or progressed. 3. Progressed mild central canal stenosis L4-5 with a shallow central disc pro trusion and impingement of the traversing L5 nerve roots. 4. LEFT foraminal protrusion L4-5 with mild to moderate foraminal narrowing an d impingement of the exiting LEFT L4 nerve root. 5. Moderate facet arthropathy L4-L5 and L5-S1.
== END 2025-02-21 07:18 | disposition home or self-care (01) ==
LOC: RAD 07:18
PROVIDERS: Absent Provider Orthopaedic Surgery; PCP Family Medicine; Visit Provider Family Medicine
DX: M51.16 Intervertebral disc disorders with radiculopathy, lumbar region (principal); M48.02 Spinal stenosis, cervical region; M48.061 Spinal stenosis, lumbar region without neurogenic claudication; M51.370 Other intervertebral disc degeneration, lumbosacral region with discogenic back pain only; M47.897 Other spondylosis, lumbosacral region; N28.1 Cyst of kidney, acquired
CPT/HCPCS: 72148

== ENCOUNTER → 2025-02-22 16:51 | Outpatient (BNVA) | payer BC, SELFPAY | PROVIDERS: PCP Family Medicine; Visit Provider Orthopaedic Surgery | DX: Z01.818 Encounter for other preprocedural examination (principal) | CPT/HCPCS: 36415; 80053; 81001; 85025 ==

== ENCOUNTER 2025-03-12 08:43 | Day surgery (SDC) | payer BC, SELFPAY ==
[2025-03-12] VITALS (12 sets, daily range): BP systolic 109–131; BP diastolic 64–94; PULSE 66–81; RESP 10–18; TEMP 36.1–36.4; O2SAT 91–96; BMI 29.2
--- NOTE | 2025-03-12 09:32 | W.PM.OPSUD ---
Surgery/Procedure H&P Update DATE OF PROCEDURE: March 12, 2025 DATE H&P PERFORMED: 02/22/25 H&P UPDATE INFORMATION: I have reviewed H&P completed within last 30 days, I have examined patient prior to procedure and No changes to prior documentation PREOP DIAGNOSIS: Lumbar stenosis with neurogenic claudication PLANNED PROCEDURE: Operation Date: 03/12/25 10:20 Proposed Procedures p Lumbar Spine Decompression Lumbar Decompression(Not Applicable) - Jonny Harris DO
--- NOTE | 2025-03-12 09:42 | ANES.PREANE2 ---
Pre-Anesthetic Assessment Height/Weight: Height 5 ft 10 in Weight 204 lb Temp Pulse Resp BP Pulse Ox O2 Del Method 97.5 F L 66 16 131/87 96 Room Air 03/12/25 08:55 03/12/25 08:55 03/12/25 08:55 03/12/25 08:55 03/12/25 08:55 03/12/25 08:55 Preop Diagnosis: Lumbar stenosis with neurogenic claudication Operation Date: 03/12/25 10:20 Proposed Procedures p Lumbar Spine Decompression Lumbar Decompression(Not Applicable) - Jonny Harris, DO Was Beta Mark taken within 24 hours: N/A Was Clonidine taken within 24 hours: N/A Last intake: Intake Last Liquid Date 03/11/25 Last Liquid Time 23:30 Last Solid Date 03/11/25 Last Solid Time 23:00 Social No alcohol and No tobacco Exam alert, oriented x 3, clear to auscultation bilaterally and regular rate & rhythm Airway Submandibular: within normal limits Cervical ROM: within normal limits Mallampati: Class III Dentition: full Comments: Comments: Front bottom tooth was loose and recently had it adhered to other tooth. States it is no longer loose Anesthetic Plan ASA status: 2 Anesthesia: General Other: No prior issues with anesthesia NPO since yesterday evening History of GERD on Nexium Denies any cardiac issues Patient states he snores really bad and believes he has sleep apnea but has not been diagnosed Recent labs 02/22/2025 reviewed acceptable for procedure Plan for GETA Medications/Allergies Home Medications ?Medication ?Instructions ?Recorded ?Confirmed ?Last Taken ?Type lactulose 10 gram/15 mL oral 20 g (30 mL) PO BID #1,200 mL 12/07/24 03/12/25 Unknown Rx solution oxycodone-acetaminophen 7.5 mg-325 1 tab PO Q8H PRN pain 15 days #45 02/26/25 03/12/25 03/11/25 Rx mg tablet (Percocet) tabs cyclobenzaprine 10 mg tablet 10 mg PO BID PRN muscle spasms 03/08/25 03/12/25 Unknown History esomeprazole magnesium 20 mg 20 mg PO DAILY 03/08/25 03/12/25 Unknown History capsule,delayed release Allergies Allergy/AdvReac Type Severity Reaction Status Date / Time No Known Allergies Allergy Verified 03/12/25 09:00 Current Medications Generic Name Dose Route Start Last Admin Trade Name Freq PRN Reason Stop Dose Admin Sodium Chloride 1,000 mls @ 30 mls/hr 03/12/25 09:00 03/12/25 09:09 Sodium Chloride 0.9% IV 03/13/25 08:59 30 mls/hr .Q24H ALE Administration PFSH Anesthesia Medical History Neck pain with history of cervical spinal surgery Spinal stenosis of cervical region with radiculopathy Social History Smoking and tobacco/nicotine status: never used tobacco/nicotine Alcohol intake: never Substance/Drug Use: never
[2025-03-12] MEDS: ceFAZolin 2,000 mg SDV 2000 MG IVP (09:54)
[2025-03-12] MEDS: lidocaine-epi 1% 20 mL INJ INJECTION (10:20)
--- NOTE | 2025-03-12 11:40 | P.OP_ITS ---
Operative Report Date of procedure: March 12, 2025 Pre-op diagnosis: Lumbar stenosis with neurogenic claudication Post-op diagnosis: same Procedure done: 1. L2-3 laminectomy and partial facetectomy 2. L3-4 laminectomy partial facetectomy 3. L4-5 laminectomy partial facetectomy Surgeon: Jonny Harris DO Estimated blood loss (mL): 25 Procedure: 1. L2-3 laminectomy and partial facetectomy 2. L3-4 laminectomy partial facetectomy 3. L4-5 laminectomy partial facetectomy Patient is brought to the operative suite. After undergoing anesthesia they are placed in the prone position. All areas of impingement are well padded. Patient is then prepped and draped in the normal sterile fashion. A skin incision is made over the L2/3 level. This is confirmed under c-arm guidance. A series of dilators are passed and the tubular retractor is docked on the L2 lamina. A bovie is used to clear the soft tissue off the lamina and the L 2/3 facet joint. A high speed michi is then used to perform the laminectomy and take down the medial aspect of the L 2/3 facet joint. A kerrison rongeure was then used to take down the remaining lamina and smooth the edge of the laminectomy up to the point where the ligamentum flavum attaches. Attention was then brought to the medial aspect of the facet joint. The remaining medial aspect of the superior and inferior aspect of the facet joint were taken down with the kerrison from the pedicle of L2 to L 3. The facet joint had significant hypertrophy. Attention was then brought to the Ligamentum Flavum. The ligament was taken down from the lamina of L2 to L3 and out medially to the remaining facet joint. The ligament was thick. The dura was then exposed. The dura was in good repair. The L2 nerve was then traced with a curette out the L2/3 foramen and found to be adequately decompressed. The L3 nerve was traced with a curette around the L3 pedicle. The lateral recess was opened with a kerrison helping to further decompress the L3 nerve. Wound is then irrigated copiously with saline and surgiflo is used to stop any bleeding. The tubular retractor is removed A skin incision is made over the L3/4 level. This is confirmed under c-arm guidance. A series of dilators are passed and the tubular retractor is docked on the L3 lamina. A bovie is used to clear the soft tissue off the lamina and the L 3/4 facet joint. A high speed michi is then used to perform the laminectomy and take down the medial aspect of the L 3/4 facet joint. A kerrison rongeure was then used to take down the remaining lamina and smooth the edge of the laminectomy up to the point where the ligamentum flavum attaches. Attention was then brought to the medial aspect of the facet joint. The remaining medial aspect of the superior and inferior aspect of the facet joint were taken down with the kerrison from the pedicle of L3 to L 4. The facet vivi int had significant hypertrophy. Attention was then brought to the Ligamentum Flavum. The ligament was taken down from the lamina of L3 to L4 and out medially to the remaining facet joint. The ligament was thick. The dura was then exposed. The dura was in good repair. The L3 nerve was then traced with a curette out the L3/4 foramen and found to be adequately decompressed. The L4 nerve was traced with a curette around the L4 pedicle. The lateral recess was opened with a kerrison helping to further decompress the L4 nerve. Wound is then irrigated copiously with saline and surgiflo is used to stop any bleeding. The tubular retractor is removed A skin incision is made over the L4/5 level. This is confirmed under c-arm guidance. A series of dilators are passed and the tubular retractor is docked on the L4 lamina. A bovie is used to clear the soft tissue off the lamina and the L 4/5 facet joint. A high speed michi is then used to perform the laminectomy and take down the medial aspect of the L 4/5 facet joint. A kerrison rongeure was then used to take down the remaining lamina and smooth the edge of the laminectomy up to the point where the ligamentum flavum attaches. Attention was then brought to the medial aspect of the facet joint. The remaining medial aspect of the superior and inferior aspect of the facet joint were taken down with the kerrison from the pedicle of L4 to L 5. The facet joint had significant hypertrophy. Attention was then brought to the Ligamentum Flavum. The ligament was taken down from the lamina of L4 to L5 and out medially to the remaining facet joint. The ligament was thick. The dura was then exposed. The dura was in good repair. The L4 nerve was then traced with a curette out the L4/5 foramen and found to be adequately decompressed. The L5 nerve was traced with a curette around the L5 pedicle. The lateral recess was opened with a kerrison helping to further decompress the L5 nerve. Wound is then irrigated copiously with saline and surgiflo is used to stop any bleeding. The tubular retractor is removed and the wound is closed with vicryl and monocryl suture. Steri strips were applied. A sterile dressing is then placed. Patient was then placed in the supine position and transferred to the PACU in stable condition.
--- NOTE | 2025-03-12 12:52 | ANE.PACU2 ---
Inpatient post-anesthesia follow up: Airway intact: Yes Vital signs: Temperature 97.6 F Pulse Rate 81 Respiratory Rate 18 Blood Pressure 127/94 Pulse Oximetry 94 Oxygen Delivery Me thod Room Air Oxygen Flow Rate 6 Fraction of Inspir ed Oxygen Hydration adequate: Yes Nausea and vomiting: No Pain level: 1 Mental status: Baseline
== END 2025-03-12 12:52 | disposition home or self-care (01) ==
PROVIDERS: PCP Family Medicine; Visit Provider Orthopaedic Surgery
PROC: (CPT 63005; principal; 2025-03-12 10:10)
DX: M48.062 Spinal stenosis, lumbar region with neurogenic claudication (principal); K21.9 Gastro-esophageal reflux disease without esophagitis; Z79.891 Long term (current) use of opiate analgesic
CPT/HCPCS: 63047; 63048 ×2; 72100; 76000; J0690; J1100; J1885; J2003; J2250; J2405; J2704; J3010; J3490; J7030; J9999

== ENCOUNTER 2025-03-14 02:45 | Inpatient (IN) | payer BC, SELFPAY ==
[2025-03-14] VITALS (38 sets, daily range): BP systolic 103–159; BP diastolic 75–103; PULSE 101–144; RESP 13–37; TEMP 36.9–39.1; O2SAT 90–95; BMI 29.4
--- NOTE | 2025-03-14 03:03 | CTR_ITS ---
PROCEDURE INFORMATION: Exam: CT Abdomen And Pelvis With Contrast Exam date and time: 03/14/2025 4:00 AM Age: 64 years old Clinical indication: Abdominal pain; Additional info: Abd pain/distended/, exam concerning for peritonintis TECHNIQUE: Imaging protocol: Computed tomography of the abdomen and pelvis with contrast. Radiation optimization: All CT scans at this facility use at least one of these dose optimization techniques: automated exposure control; mA and/or kV adjustment per patient size (includes targeted exams where dose is matched to clinical indication); or iterative reconstruction. Contrast material: OMNI 350; Contrast volume: 100 ml; Contrast route: INTRAVENOUS (IV); COMPARISON: CT abdomen pelvis wo/w [id number] 11/30/2024 4:08 PM RADIATION DOSE METRICS: Total DLP (mGy-cm): 1007.13 FINDINGS: Lungs: Streaky bilateral dependent atelectasis noted. No consolidation. Liver: 1.2 cm cyst noted in the right hepatic lobe. There is a subcentimeter focus of decreased attenuation in the hepatic dome, which is too small to characterize. No cirrhotic features. Gallbladder and biliary ducts: Normal. No calcified stones. No ductal dilation. Pancreas: Normal. No ductal dilation. Spleen: Normal. No splenomegaly. Adrenal glands: Nonspecific mass measuring 1.5 cm seen in the left adrenal gland. The right adrenal glands unremarkable. Kidneys and ureters: Symmetric enhancement of the kidneys. Left kidney cyst measuring 3.5 cm noted. No kidney stone. No hydronephrosis. Stomach and bowel: Distended gastric cavity and esophagus with fluid levels noted. Air-fluid levels are also noted in the proximal colon. There are multiple diverticuli in the sigmoid colon, in association with mild wall thickening and stranding of the pericolic fat, consistent with acute diverticulitis. There is a small amount of pneumoperitoneum, and small amount of fluid extending along the left paracolic gutter. There is diverticulosis without evidence of diverticulitis. Appendix: No evidence of appendicitis. Intraperitoneal space: See Stomach and bowel findings. Vasculature: Unremarkable. No abdominal aortic aneurysm. Lymph nodes: Unremarkable. No enlarged lymph nodes. Urinary bladder: The urinary bladder is decompressed with a Bourne catheter in place. Reproductive: Unremarkable as visualized. Bones/joints: Degenerative changes of the spine seen. Soft tissues: Left groin surgical changes noted. CT/CT abdomen pelvis w con* [id number] IMPRESSION: 1. Imaging findings of perforated acute sigmoid diverticulitis, with small amount of pneumoperitoneum, in small amount of fluid extending along the left paracolic gutter. 2. Nonspecific focus of decreased attenuation in the hepatic dome, which is too small to characterize. 3. Incompletely characterized left adrenal mass. Further evaluation with contrast enhanced abdominal MRI should be considered. COMMENTS: Consistent with the [employer]'s Incidental Findings Committee white paper (J Am Enrique Radiol 2018): Any incidental renal lesion less than 1 cm or classified as too small to characterize, or any incidental cystic renal lesion characterized as simple-appearing, is likely benign. No follow-up imaging is recommended for these lesions per consensus recommendations based on imaging criteria.
[2025-03-14] MEDS: HYDROmorphone 0.5 MG/0.5 ML INJ 2 MG IVP (03:15)
[2025-03-14] MEDS: ondansetron 2 mg/ML SDV 2 mL 4 MG IVP ×3 (03:15→18:14)
[2025-03-14 03:19] LABS: Hematocrit 45.5 % (37-53); Hemoglobin 14.60 g/dL (11.27-16.99); Mean Corpuscular HGB Conc 32.1 g/dL (30-55); Mean Corpuscular Hemoglobin 29.3 pg (27-33); Mean Corpuscular Volume 91.2 fl (82-101); Nucleated Red Blood Cells % 0 %; Platelet Count 343 10^3/cmm (157-399); Red Blood Count 4.99 10^6/uL (3.85-5.65); White Blood Count 14.72 10^3/uL (3.29-11.43)
[2025-03-14 03:36] LABS: Alanine Aminotransferase 26 U/L (0-41); Albumin Level 4.4 g/dL (3.5-5.2); Alkaline Phosphatase 91 U/L (40-130); Aspartate Amino Transferase 41 U/L (0-40); Blood Urea Nitrogen 14 mg/dL (8-23); Calcium 9.3 mg/dL (8.5-10.5); Carbon Dioxide 23 mmol/L (22-29); Chloride 101 mmol/L (98-107); Creatinine Clr Calc Pharmacy 109.6799; Globulin 2.9 g/dL (1.3-4.6); Glucose 126 mg/dL (65-115); Lipase 12 U/L (13-60); Osmolality Calculated 290 mOsm/kg (285-295); Sodium 139 mmol/L (136-145); Total Protein 7.3 g/dL (6.6-8.7)
[2025-03-14 03:37] LABS: Lactic Sepsis W/Reflex 2.4 mmol/L (0.5-2.2)
[2025-03-14 03:40] LABS: Anion Gap 19.2 (5-19); Potassium 4.2 mmol/L (3.5-5.1)
--- NOTE | 2025-03-14 03:44 | ED_ITS ---
HPI - General Adult 2 General: Chief complaint: Abdominal Pain Stated complaint: abdomen pain Time Seen by Provider: 03/14/25 02:47 History of Present Illness: Patient is a 64-year-old male who presents with a chief complaint of abdominal distention, severe abdominal pain that is worsened in the last day or 2. Patient has also been nauseated and vomiting, noted that vomit smelled like feces. Patient has not had any chest pain but states that breathing is painful as it makes his abdominal pain worse. Of note, he had spinal surgery on Wednesday: Procedure done: 1. L2-3 laminectomy and partial facetec elisa 2. L3-4 laminectomy partial facetectomy 3. L4-5 laminectomy partial facetectomy Surgeon: Jonny Harris DO Patient has also had difficulty urinating. He states he does have some pain with urination. He has not had a bowel movement since Wednesday though he states he has been passing gas. Per , patient has not had any lower extremity weakness, numbness, saddle anesthesia or paresthesia, loss of bowel or bladder control. They have not noted any erythema, purulent drainage or increased pain from surgical site. Related Data Home Medications ?Medication ?Instructions ?Recorded ?Confirmed cyclobenzaprine 10 mg tablet 10 mg PO BID PRN muscle s pasms 03/08/25 03/12/25 esomeprazole magnesium 20 mg 20 mg PO DAILY 03/08/25 1 capsule,delayed release Previous Rx's ?Medication ?Instructions ?Recorded lactulose 10 gram/15 mL oral 20 g (30 mL) PO BID #1,20 0 mL 12/07/24 solution oxycodone-acetaminophen 10 mg-325 1 tab PO Q4H PRN rylan n 7 days #42 03/12/25 mg tablet tabs Allergies Allergy/AdvReac Type Severity Reaction Status Date / Time No Known Allergies Allergy Verified 03/12/25 09:00 ON LICENSE OF [facility] ED 2 PFSH: Medical History (Updated 03/14/25 @ 06:57 by Maria Isabel Mireles MD) Neck pain with history of cervical spinal surgery Spinal stenosis of cervical region with radiculopathy Social History Smoking and tobacco/nicotine status: never used tobacco/nicotine Alcohol intake: never Substance/Drug Use: never Physical Exam 2 Narrative: EXAM NARRATIVE: Vitals are reviewed. Initial exam, patient is alert and oriented. He is hypertensive and tachycardic and febrile. SpO2 is 94% on room air, he is breathing comfortably. Lungs are clear (examination is limited due to patient's pain/discomfort). Abdomen is firm, distended and exam is concerning for peritonitis. Patient does not have any lower extremity edema or asymmetry. Course 2 Vital Signs: Vital signs: Vital Signs Temperature 102.4 F H 03/14/25 04:46 Pulse Rate 133 H 03/14/25 04:42 Respiratory Rate 28 H 03/14/25 04:42 Blood Pressure 152/102 03/14/25 04:42 Pulse Oximetry 93 03/14/25 04:42 Oxygen Delivery Me thod Room Air 03/14/25 03:02 [facility] - General Adult Medical Decision Making 64-year-old male presenting with a chief complaint of fever, nausea, feculent vomiting, abdominal pain, distention. Differential diagnosis includes but is not limited to, bowel ischemia, bowel obstruction, pancreatitis, cholecystitis, appendicitis, perforated viscus, sepsis, other. On initial exam, patient is tachycardic and febrile. He was evaluated with CBC, CMP, lipase, lactic acid, UA, CT scan of the abdomen pelvis with IV contrast. He was treated with a bolus of IV fluids. He was treated for pain with IV Zofran and Dilaudid. Patient has an elevated white blood cell count of 15. Patient does not have any actionable electrolyte abnormalities and has normal sodium potassium. He has adequate kidney function and only mildly elevated anion gap. He does have mildly elevated lactic acid. Lipase is normal. CT imaging shows: IMPRESSION: 1. Imaging findings of perforated acute sigmoid diverticulitis, with small amount of pneumoperitoneum, in small amount of fluid extending along the left paracolic gutter. 2. Nonspecific focus of decreased attenuation in the hepatic dome, which is too small to characterize. 3. Incompletely characterized left adrenal mass. Further evaluation with contrast enhanced abdominal MRI should be considered. Discussed w/surgeon consolidation accountant regarding patient's presentation. He was given additional bolus of IVF, given a dose of Zosyn. Patient did start to complain of chest pain, EKG obtained: Sinus tachycardia with a heart rate of 142, normal axis, normal intervals, no STEMI. Troponin added to evaluation. Discussed pt w/general surgeon consolidation accountant Dr. Sullivan at 5:30. Patient admitted to ICU. Lab Data 03/14/25 03:00 03/14/25 03:00 Radiology Impressions Abdomen/Pelvis CT 03/14/25 03:03 IMPRESSION: 1. Imaging findings of perforated acute sigmoid diverticulitis, with small amount of pneumoperitoneum, in small amount of fluid extending along the left paracolic gutter. 2. Nonspecific focus of decreased attenuation in the hepatic dome, which is too small to characterize. 3. Incompletely characterized left adrenal mass. Further evaluation with contrast enhanced abdominal MRI should be considered. COMMENTS: Consistent with the [employer]'s Incidental Findings Committee white paper (J Am Enrique Radiol 2018): Any incidental renal lesion less than 1 cm or classified as too small to characterize, or any incidental cystic renal lesion characterized as simple-appearing, is likely benign. No follow-up imaging is recommended for these lesions per consensus recommendations based on imaging criteria. ADDENDUM: 03/14/25 0515 THIS REPORT CONTAINS FINDINGS THAT MAY BE CRITICAL TO PATIENT CARE. The findings were verbally communicated via telephone conference with Maria Isabel Mireles at 5:13 AM CDT on 03/14/2025. The findings were acknowledged and understood. Laboratory Results WBC 14.72 10^3/uL (3.29-11.43) H 03/14/25 03:00 RBC 4.99 10^6/uL (3.85-5.65) 03/14/25 03:00 Hgb 14.60 g/dL (11.27-16.99) 03/14/25 03:00 Hct 45.5 % (37-53) 03/14/25 03:00 MCV 91.2 fl (82-101) 03/14/25 03:00 MCH 29.3 pg (27-33) 03/14/25 03:00 MCHC 32.1 g/dL (30-55) 03/14/25 03:00 RDW 12.6 % (12.1-15.1) 03/14/25 03:00 Plt Count 343 10^3/cmm (157-399) 03/14/25 03:00 MPV 8.6 fL (7.4-10.4) 03/14/25 03:00 Neut % (Auto) 80.0 % 03/14/25 03:00 Lymph % (Auto) 12.5 % 03/14/25 03:00 [place] % (Auto) 6.7 % 03/14/25 03:00 Eos % (Auto) 0.1 % 03/14/25 03:00 Baso % (Auto) 0.2 % 03/14/25 03:00 Neut # (Auto) 11.78 10^3/uL (1.8-7.7) H 03/14/25 03:00 Lymph # (Auto) 1.8 10^3/uL (0.8-4.8) 03/14/25 03:00 [place] # (Auto) 1.0 10^3/uL (0.2-0.9) H 03/14/25 03:00 Eos # (Auto) 0.0 10^3/uL (0.0-0.8) 03/14/25 03:00 Baso # (Auto) 0.0 10^3/uL (0.0-0.1) 03/14/25 03:00 Nucleated RBC % (auto) 0 % 03/14/25 03:00 Nucleated RBCs # 0.0 /100WBC 03/14/25 03:00 Sodium 139 mmol/L (136-145) 03/14/25 03:00 Potassium 4.2 mmol/L (3.5-5.1) 03/14/25 03:00 Chloride 101 mmol/L (98-107) 03/14/25 03:00 Carbon Dioxide 23 mmol/L (22-29) 03/14/25 03:00 Anion Gap 19.2 (5-19) H 03/14/25 03:00 BUN 14 mg/dL (8-23) 03/14/25 03:00 Creatinine 0.8 mg/dL (0.7-1.2) 03/14/25 03:00 GFR Calculation 98.0 mL/min (90-130) 03/14/25 03:00 Glucose 126 mg/dL (65-115) H 03/14/25 03:00 Calculated Osmolality 290 mOsm/kg (285-295) 03/14/25 03:00 Lactic Acid 2.4 mmol/L (0.5-2.2) H 03/14/25 03:00 Lactic Acid (Sepsis) 2.2 mmol/L (0.5-2.2) 03/14/25 05:39 Calcium 9.3 mg/dL (8.5-10.5) 03/14/25 03:00 Total Bilirubin 0.6 mg/dL (0.15-1.2) 03/14/25 03:00 AST 41 U/L (0-40) H 03/14/25 03:00 ALT 26 U/L (0-41) 03/14/25 03:00 Alkaline Phosphatase 91 U/L (40-130) 03/14/25 03:00 Troponin T Baseline 14 ng/L (0-15) 03/14/25 05:39 Total Protein 7.3 g/dL (6.6-8.7) 03/14/25 03:00 Albumin 4.4 g/dL (3.5-5.2) 03/14/25 03:00 Globulin 2.9 g/dL (1.3-4.6) 03/14/25 03:00 Lipase 12 U/L (13-60) L 03/14/25 03:00 Urine Color Yellow (Yellow) 03/14/25 03:50 Urine Appearance Clear (CLEAR) 03/14/25 03:50 Urine pH 5.5 (5-7) 03/14/25 03:50 Ur Specific [place] 1.017 (1.005-1.030) 03/14/25 03:50 Urine Protein Negative (Negative) 03/14/25 03:50 Urine Glucose (UA) Negative (Normal) 03/14/25 03:50 Urine Ketones Negative (Negative) 03/14/25 03:50 Urine Blood Trace (Negative) A 03/14/25 03:50 Urine Nitrate Negative (Negative) 03/14/25 03:50 Urine Bilirubin Negative (Negative) 03/14/25 03:50 Urine Urobilinogen 0.2 mg/dL (Negative) 03/14/25 03:50 Ur Leukocyte Esterase Negative (Negative) 03/14/25 03:50 Urine RBC 0-2 /hpf (0-2) 03/14/25 03:50 Urine WBC 0-5 /hpf (0-5) 03/14/25 03:50 Ur Squamous Epith Cells 0-5 /hpf (0-5) 03/14/25 03:50 Amorphous Sediment Not Reportable 03/14/25 03:50 Urine Bacteria None seen /hpf (NONE) 03/14/25 03:50 Hyaline Casts 0.40 /lpf 03/14/25 03:50 All radiology interpretation(s) finalized by discharge Discharge Plan Discharge Patient Disposition: Admitted As Inpatient Clinical Impression: Perforated bowel, Sepsis Condition: Stable Coding Level of Care Code ED Recycling Assistant for Dana Hodges
[2025-03-14 04:12] LABS: Glucose Urine UA Negative (Normal); Nitrate Urine Negative (Negative); Specific Gravity, Urine 1.017 (1.005-1.030)
[2025-03-14 04:17] LABS: Add Urine Microscopic? YES
[2025-03-14] MEDS: acetaminophen 1,000 MG/100 ML PIGGYBACK 400 MG IV (04:49)
[2025-03-14 05:03] LABS: Reflex Lactate Order REFLEX LACTIC ORDERD
--- NOTE | 2025-03-14 05:33 | ECG_ITS ---
[facility] Date: 2025-03-14 Pat Name: Marcial Villaseñor Department: Room: Gender: Male Gyn: : 1960 Requested By: Maria Isabel Mireles Order Number: [id number] Kushal MD: Olivia Lindsey M.D. Measurements Intervals [place] Rate: 142 P: 15 [place]: 131 QRS: -5 QRSD: 101 T: 5 QT: 305 QTc: 469 Interpretive Statements SINUS TACHYCARDIA, POSSIBLE ATRIAL FLUTTER POSSIBLE ANTERIOR MYOCARDIAL INFARCTION , PROBABLY OLD [30 ms Q WAVE IN V3/V4, OR R < 0.2 mV IN V4] ABNORMAL RHYTHM ECG No previous ECG available for comparison Electronically Signed On 03-14-2025 22:53:04 CDT by Olivia Lindsey M.D. [email or web address]
[2025-03-14] MEDS: piperacillin-tazobactam 4.5 GM in sodium chloride 0.9% (plus) 50 ML IV (05:58)
[2025-03-14 05:59] LABS: Troponin(5th) Baseline 14 ng/L (0-15)
[2025-03-14 06:00] LABS: Lactic Acid level (Lactate) 2.2 mmol/L (0.5-2.2)
[2025-03-14] MEDS: HYDROmorphone 0.5 MG/0.5 ML INJ 1 MG IVP ×4 (06:05→22:05)
--- NOTE | 2025-03-14 07:33 | ECG_ITS ---
[facility] Date: 2025-03-14 Pat Name: Marcial Villaseñor Department: Room: ICU08 Gender: Male Injury/Safety Hazard Assessment: : 1960 Requested By: Maria Isabel Mireles Order Number: [id number] Kushal MD: Olivia Lindsey M.D. Measurements Intervals [place] Rate: 137 P: 28 ND: 135 QRS: -1 QRSD: 94 T: 5 QT: 308 QTc: 466 Interpretive Statements SINUS TACHYCARDIA ABNORMAL RHYTHM ECG Compared to ECG 03/14/2025 05:32:34 Myocardial infarct finding no longer present Electronically Signed On 03-14-2025 22:59:19 CDT by Olivia Lindsey M.D. [email or web address]
[2025-03-14 08:07] LABS: Troponin 5 2HR 25.89 ng/L (0-15)
[2025-03-14 08:17] LABS: Troponin 5 2HR Delta 11.89 ABS# (0-10)
[2025-03-14] MEDS: cetacaine Spray 5 gm Can 1 SPRAY TOPICAL (09:00)
--- NOTE | 2025-03-14 09:22 | XR_ITS ---
WS: [id number] Portable AP upright chest, 03/14/2025 Clinical Data: ng placement Comparison: Two-view chest, 01/07/2006. Findings: A nasogastric tube has been inserted. The tube appears to be in the esophagus and probably ends in the fundus of the stomach. XR/XR chest 1V portable [id number] Impression: Satisfactory placement of nasogastric tube.
[2025-03-14] MEDS: morphine 4 mg/mL SDV 1 mL 2 MG IVP ×3 (09:52→20:17)
[2025-03-14] MEDS: metoprolol tartrate 1 mg/1 mL SDV 5 mL 2.5 MG IVP (09:52)
--- NOTE | 2025-03-14 11:03 | PC.NURSE ---
I was performing leadership rounding with patients in ICU when patient c/o pain. Upon assessment, he states that his pain is 10/10 in his LLQ of abdomen and when I asked, he stated he wasn't sure if it was the same or worse than it was earlier when he received Morphine at 0952. I attempted to call Dr. Lindsey to request a change in PRN meds after reviewing the chart and seeing there were only orders available that were PO meds. When no response was received, I sent Dr. Lindsey a message and asked him to call me when he could regarding patient's increased pain. He messaged back at [phone] inquiring about patient's Morphine, so I called him again at [phone] and reviewed orders with him, including that Morphine had been administered at 0952. He provided a verbal order for 2mg one time dose of Morphine and stated we can actually give 2 mg if he has breakthrough pain in between the Morphine every 4 hours . I inquired if we could just change the Morphine to 2 mg every 2 hours for severe pain as opposed to every 4 and he approved that change. I placed the order per policy, overrode it from the Pyxis d/t patient's c/o severe pain, and upon further assessment, patient is tachypneic at 34 breaths/min, tachycardic in the 130s, and SPO2 is 91% on RA. I administered ordered Morphine and while speaking with family at bedside, patient's son verbalized that he was unclear of what the plan was when Dr. Sullivan came in and wasn't sure if patient was having surgery or not. I explained that my understanding, provided from nursing report, was that we were going to attempt to allow antibiotics to resolve the issue before deciding on surgery. He verbalizes understanding. Patient continued to be tachypneic and I assessed shallow breathing, likely d/t pain in abdomen. I obtained a pillow and educated patient on splinting technique, explained the risk of atalectasis and pneumonia, and worked on deep breathing with patient. He verbalizes understanding and verbalizes that he will call if his pain is not improved.
--- NOTE | 2025-03-14 11:37 | P.HP_ITS ---
Providers/Chief Complaint 2 Admitting Physician: José Miguel Dunlap Primary Care Provider: Alon Salazar MD Chief Complaint: abdomen pain History of Present Illness As per the previous notes and the patient: Marcial Villaseñor is a 64 year old male with past medical history of cath/angio as per the but no details available since it was many years ago and the patient did not have significant coronary artery disease or stenting or any cardiomyopathy in the past, back pain due to heavy lifting s/p spinal surgery done few weeks ago and on high doses of opioids with uncontrolled ongoing pain from the last few days came with abdominal pain associated with nausea and vomiting. As per the the patient was having projectile vomiting that smelled like feces. The patient reported also having fever and chills from 1 day after the abdominal pain. There was no associated chest pain or chest pressure or diaphoresis or any syncope. There was no history of any lower leg swellings or orthopnea or PND as per the family/patient. No alcohol intake or any other drug abuse. Review of Systems 2 General: Reports: 10 or more systems reviewed and unremarkable except in HPI and below Medications/Allergies Home Medications ?Medication ?Instructions ?Recorded ?Confirmed ?Last Taken ?Type cyclobenzaprine 10 mg tablet 10 mg PO BID PRN muscle s pasms 03/08/25 03/14/25 Unknown History esomeprazole magnesium 20 mg 20 mg PO DAILY 03/08/25 1 03/13/25 History capsule,delayed release oxycodone-acetaminophen 10 mg-325 1 tab PO Q4H PRN rylan n 7 days #42 03/12/25 03/14/25 03/13/25 Rx mg tablet tabs diphenhydramine 25 1 tab PO Q4H PRN Sleep 03/1403/14/25 Unknown History mg-acetaminophen 500 mg tablet (Tylenol PM Extra Strength) docusate sodium 100 mg capsule 100 mg PO BID 03/14/25 03/14/25 03/13/25 History Allergies Allergy/AdvReac Type Severity Reaction Status Date / Time No Known Allergies Allergy Verified 03/12/25 09:00 PFSH Acute 2 PFSH: Medical History (Updated 03/14/25 @ 06:57 by Maria Isabel Mireles MD) Neck pain with history of cervical spinal surgery Spinal stenosis of cervical region with radiculopathy Social History Smoking and tobacco/nicotine status: never used tobacco/nicotine Alcohol intake: never Substance/Drug Use: never Vitals/I&O/Wt Last Vital Signs Temp 98.3 F 03/15/25 08:00 Pulse 99 03/15/25 10:00 Resp 16 03/15/25 10:45 BP 120/77 03/15/25 10:00 Pulse Ox 95 03/15/25 10:00 O2 Del Method Nasal Cannula 03/15/25 10:00 O2 Flow Rate 4 03/15/25 10:00 03/14/25 03/15/25 03/15/25 22:59 06:59 14:59 Intake Total 1999 2750 / 4800 50 / 50 Output Total 925 / 925 1460 / 2385 Balance 1075 / 1125 1290 / 2415 50 / 50 Weight last 48 hrs Weight 92.986 kg Weight 92.986 kg Physical Exam 2 Narrative: General: Alert and oriented, with NG tube in place and on negative suction, in severe distress in agony due to abdominal pain and having shallow breathing pattern due to pain HEENT: Normocephalic, atraumatic, grossly unremarkable exam Cardio: Tachycardia, normal S1-S2 without any murmurs, rubs, or gallops and JVD normal Respiratory: Bilateral equal air entry however having shallow breathing and thoracoabdominal pattern, without any wheezes, stridor, rhonchi GI: Abdomen tender and rigid on all quadrants with distention, unable to comment on organomegaly due to distention and limited deep palpation exam, bowel sounds not exaggerated on auscultation however seems decreased. Neuro: intact cranial nerves motor and sensory and cerebellar/coordination function without any focal neurological deficit Behavior: Appropriate and cooperative Extremities: Adequate palpable pulses, no edema or cyanosis observed. Urinary Catheter Management: Bourne: Cath Placed During This Visit: yes Reason for Continuing Indwelling Catheter: Accurate Measurement of Urinary Output in Critically Ill Patients Urinary Catheter Date of Insertion: 03/14/25 Urinary Catheter Time of Insertion: 03:45 Data 03/15/25 08:08 03/15/25 08:08 Micro: Microbiology 03/14/25 14:30 Gram Stain - Final Peritoneal Fluid 03/14/25 04:23 Blood Culture - Preliminary Blood NEGATIVE TO DATE 03/14/25 03:00 Blood Culture - Preliminary Blood NEGATIVE TO DATE A&P Assessment and plan 1. Sepsis: - Secondary to and with source of perforated bowels/intra-abdominal infection, fluid resuscitation and to continue maintenance fluids - Blood cultures and urine cultures - Lactate - Oxygen therapy as needed - Broad-spectrum antibiotics with Zosyn and bank - Maintain MAP above 65 - Monitoring of neuro vitals and hemodynamics rigorously - Currently patient is having adequate urine output and capillary refill however is at risk of having septic shock in the patient condition has been explained to the family - Surgery on board and to follow the plan - As needed acetaminophen as IV for fever and pain (based on pain scale) 2. Perforated bowel: - Surgery on board and follow the recs - Patient having tachycardia and high blood pressure secondary to severe abdominal pain and back pain -Keep n.p.o. on NGT suction - Adequate analgesia with strong opioids morphine and Dilaudid are the options as IV however it is also a limitation considering he has bowel perforation and opioids can lead to constipation and decreased bowel movements, further surgery recommendations to follow. - Precedex to consider increase of tachycardia and agitation since the patient has been taking high-dose of opioids at home at baseline and could be an element of withdrawal leading to tachycardia - Echo considering patient might require surgery and as a baseline study however in the light of risk and benefits surgery is a priority considering perforated bowel carries high risk of sepsis and septic shock. 3. Spinal stenosis of cervical region with radiculopathy: - Patient voicing severe back pain and to provide adequate analgesia PDMP PDMP Reviewed: Not Reviewed Attestations 2 Medical Necessity Statement*: Marcial Villaseñor's hospital stay will require greater than 2 midnights for management of perforated bowel and sepsis Time Spent in Patient Care: 16 - 35 minutes (>than 50% of time sp ent in counselling and/or direct pt care on unit) . The high probability of a clinically significant, sudden or life threatening deterioration, as referenced in this documentation, required my full and direct attention, intervention and personal management. The critical care time shown is in addition to time spent performing any reported separately billable procedures and includes the following: [x] Data and vital sign review and interpretation [x ] Patient assessment, examination and intervention [x] Medication orders and management [x] Patient/Family updates as able [x] Care Coordination and Documentation. Critical Care Time: Critical Care Time (min): 35 Other Attestations: Patient condition has been discussed at length with the patient/family, I have independently reviewed the chart labs imaging/diagnostics/EKG. the goals of care and code status with the patient/family/NOK/legal inventory representative, and documented accordingly. The patient/family has been informed about the current condition and further plan of care. Agreed with the plan of care and understood without any language barrier. Every effort was made to ensure accuracy of supervisor coil winding. Any obvious errors or omissions should be clarified with the author of the document. Coding Level of Care Code Critical Care >/= 30 minutes Diagnoses Sepsis A41.9 Perforated bowel K63.1 Spinal stenosis of cervical region with radiculopathy M48.02; M54.12
--- NOTE | 2025-03-14 11:40 | PC.NURSE ---
1136: Dr. Sullivan was present on the floor seeing another patient for consult, so I asked that he present to patient's room to speak with family and re-evaluate. I provided him a quick update on patient's status, including increased, severe pain to LLQ of abdomen, increase in Morphine, tachypnea, tachycardia, and education on splinting techniques for deep breathing and attempt to assist with pain. I also informed him of minimal output received from NG tube at this time. He verbalized understanding and presented to the patient's room. I introduced him to patient and his family at bedside again and Dr. Sullivan performed an assessment on patient's abdomen, pressing lightly. He inquired if patient's pain was better or worse from earlier when he saw him and he stated definitely worse . Dr. Sullivan provided orders for STAT labs to f/u and assess trends. He spoke with family and explained that we would like to avoid surgery if possible, but patient is not currently trending in that direction. I asked family at bedside if there were more questions for Dr. Sullivan at this time, to which they declined. Patient continues to state that his pain has not decreased from 10/10 assessed with Morphine administration at 1114, so I instructed him to give it 15 minutes more and we would reassess. He verbalizes understanding. I sent a message to Dr. Lindsey and updated him on patient's status as well as plan moving forward from Dr. Sullivan.
--- NOTE | 2025-03-14 12:09 | PC.NURSE ---
1209: I checked on patient again and assessed his pain. He states it is still 10/10 and has now migrated to include the LUQ as well as LLQ in abdomen. I stepped out and called Dr. Lindsey, informing him of patient's condition currently as a recap of what I had already sent him via Vo[employer] that he just hadn't opened yet. I suggested allowing Dr. Sullivan to manage the pain as the severity of the pain has increased and is likely going to be surgical in nature. He agrees. I called tow operator and asked to be transferred to Dr. Sullivan. I reviewed information again with Dr. Sullivan, and informed him patient had received 2 mg of Morphine at 1114 and continued to c/o pain 10/10 in LLQ but his pain now included LUQ as well and his abdomen continued to be tender to touch. He stated that he believed Dilaudid would be better and stated he would place the order for Dilaudid after a quick review of patient's chart. I presented back to patient's room and explained this to patient and his family and will administer PRN medications as ordered once placed.
[2025-03-14] MEDS: piperacillin-tazobactam 3.375 GM in sodium chloride 0.9% (plus) 50 ML IV ×2 (12:28→20:18)
[2025-03-14] MEDS: pantoprazole 40 mg SDV IVP (12:28)
--- NOTE | 2025-03-14 12:45 | PC.NURSE ---
1245: At this time an additional order for PRN pain medications was not placed or received verbally and patient continued to c/o pain 10/10 in LUQ and LLQ of abdomen. I called cut press operator and asked to be transferred to Dr. Sullivan. I spoke with him and informed him I had not received an order for any additional pain medications after speaking with him at 1209. He stated that the plan was obviously to take patient to surgery and that nursing was clearly concerned about it and I stated yes, I had voiced my concerns in regards to this patient with him as well as Dr. Lindsey already today and patient continues to be c/o 10/10 pain in his abdomen and Morphine was last administered at 1114. He states well typically when a patient is in pain and one medication doesn't work, I would typically give something else. I agreed and stated that I would need an order to do that. He states that he isn't sure how often it would need to be given, so he provided a verbal order for Dilaudid 1 mg one time and states he will look and see how often it can be given later. I read back order per policy and he states that he will be on his way in to speak with patient's family again soon about proceeding with surgery.
--- NOTE | 2025-03-14 13:01 | ANES.PREANE2 ---
Pre-Anesthetic Assessment Height/Weight: Height 5 ft 10 in Weight 205 lb Temp Pulse Resp BP Pulse Ox O2 Del Method O2 Flow Rate 98.7 F 130 H 34 H 130/83 91 Nasal Cannula 4 03/14/25 07:24 03/14/25 08:56 03/14/25 11:14 03/14/25 08:14 03/14/25 11:14 03/14/25 08:56 03/14/25 08:56 Preop Diagnosis: pneumoperitenium Operation Date: 03/14/25 13:30 Proposed Procedures p Exploratory Laparotomy(Not Applicable) - Arnulfo Sullivan MD Was Beta Mark taken within 24 hours: N/A Was Clonidine taken within 24 hours: N/A Social No alcohol and No tobacco Exam alert Patient just had Dilaudid and is pretty sedated Airway Submandibular: within normal limits Cervical ROM: within normal limits Mallampati: Class III Dentition: full Anesthetic Plan ASA status: 3E Anesthesia: General Other: No prior issues with anesthesia Patient just had a spinal decompression on 03/12/2025 under [place] and did well Patient presented back to the ER this morning with fever, nausea, vomiting. Found to have acute sigmoid diverticulitis with pneumoperitoneum History of GERD on Nexium Denies any cardiac issues Patient states he snores really bad and believes he has sleep apnea but has not been diagnosed Labs from today currently pending, CMP is back which shows an anion gap of 22.6, lactic acid 2.4 Patient currently has 2 peripheral IVs EKG showing sinus tachycardia Plan for GETA with RSI Medications/Allergies Home Medications ?Medication ?Instructions ?Recorded ?Confirmed ?Last Taken ?Type cyclobenzaprine 10 mg tablet 10 mg PO BID PRN muscle spasms 03/08/25 03/14/25 Unknown History esomeprazole magnesium 20 mg 20 mg PO DAILY 03/08/25 03/14/25 03/13/25 History capsule,delayed release oxycodone-acetaminophen 10 mg-325 1 tab PO Q4H PRN pain 7 days #42 03/12/25 03/14/25 03/13/25 Rx mg tablet tabs diphenhydramine 25 1 tab PO Q4H PRN Sleep 03/14/25 03/14/25 Unknown History mg-acetaminophen 500 mg tablet (Tylenol PM Extra Strength) docusate sodium 100 mg capsule 100 mg PO BID 03/14/25 03/14/25 03/13/25 History Allergies Allergy/AdvReac Type Severity Reaction Status Date / Time No Known Allergies Allergy Verified 03/12/25 09:00 Current Medications Generic Name Dose Route Start Last Admin Trade Name Freq PRN Reason Stop Dose Admin Heparin Sodium (Porcine) 5,000 unit 03/14/25 11:45 03/14/25 12:42 Heparin 5,000 Unit/Ml Inj 1 Ml SUBCUT Not Given Q12H ALE Hydromorphone HCl 1 mg 03/14/25 04:44 03/14/25 06:05 Hydromorphone 0.5 Mg/0.5 Ml Inj IVP 1 mg ONCE PRN Administration severe pain Piperacillin Sod/Tazobactam 50 mls @ 12.5 mls/hr 03/14/25 12:00 03/14/25 12:28 Sod 3.375 gm/ Sodium Chloride IV 12.5 mls/hr Q8H ALE Administration Protocol Morphine Sulfate 2 mg 03/14/25 11:09 03/14/25 11:14 Morphine 4 Mg/Ml Sdv 1 Ml IVP 2 mg Q2H PRN Administration SEVERE PAIN Ondansetron HCl 4 mg 03/14/25 11:45 03/14/25 12:28 Ondansetron 2 Mg/Ml Sdv 2 Ml IVP 4 mg Q6H ALE Administration Pantoprazole Sodium 40 mg 03/14/25 11:45 03/14/25 12:28 Pantoprazole 40 Mg Sdv IVP 40 mg Q12H ALE Administration [facility] Anesthesia Medical History (Updated 03/14/25 @ 06:57 by Maria Isabel Mireles MD) Neck pain with history of cervical spinal surgery Spinal stenosis of cervical region with radiculopathy Social History Smoking and tobacco/nicotine status: never used tobacco/nicotine Alcohol intake: never Substance/Drug Use: never Data Anesthesia 03/14/25 03:00 03/14/25 12:18 Short CBC 03/14/25 Range/Units 03:00 WBC 14.72 H (3.29-11.43) 10^3/uL Hgb 14.60 (11.27-16.99) g/dL Hct 45.5 (37-53) % MCV 91.2 (82-101) fl Plt Count 343 (157-399) 10^3/cmm Neut % (Auto) 80.0 % Neut # (Auto) 11.78 H (1.8-7.7) 10^3/uL BMP 03/14/25 03:00 Sodium 139 Potassium 4.2 Chloride 101 Carbon Dioxide 23 BUN 14 Creatinine 0.8 Glucose 126 H Calcium 9.3 Cardiac Enzymes 03/14/25 03/14/25 Range/Units 05:39 07:34 Troponin T Baseline 14 (0-15) ng/L Troponin T 120 Minute 25.89 H (0-15) ng/L Delta Troponin T 11.89 H* (0-10) ABS# Liver Function 03/14/25 Range/Units 03:00 Total Bilirubin 0.6 (0.15-1.2) mg/dL AST 41 H (0-40) U/L ALT 26 (0-41) U/L Alkaline Phosphatase 91 (40-130) U/L Albumin 4.4 (3.5-5.2) g/dL Urine 03/14/25 Range/Units 03:50 Urine Color Yellow (Yellow) Urine Appearance Clear (CLEAR) Urine pH 5.5 (5-7) Ur Specific [place] 1.017 (1.005-1.030) Urine Protein Negative (Negative) Urine Glucose (UA) Negative (Normal) Urine Ketones Negative (Negative) Urine Nitrate Negative (Negative) Urine Bilirubin Negative (Negative) Ur Leukocyte Esterase Negative (Negative) Urine RBC 0-2 (0-2) /hpf Urine WBC 0-5 (0-5) /hpf Microbiology 03/14/25 04:23 Blood Culture - Preliminary Blood SPECIMEN COLLECTED 03/14/25 03:00 Blood Culture - Preliminary Blood SPECIMEN COLLECTED
[2025-03-14 13:04] LABS: Hematocrit 46.3 % (37-53); Hemoglobin 15.10 g/dL (11.27-16.99); Mean Corpuscular HGB Conc 32.6 g/dL (30-55); Mean Corpuscular Hemoglobin 29.7 pg (27-33); Mean Corpuscular Volume 91.0 fl (82-101); Platelet Count 358 10^3/cmm (157-399); Red Blood Count 5.09 10^6/uL (3.85-5.65); White Blood Count 11.71 10^3/uL (3.29-11.43)
--- NOTE | 2025-03-14 13:04 | P.CONIM_ITS ---
Providers/Reason For Consult 2 Consulting Physician/Specialty*: Chun Lindsey MD Reason for Consult*: multiple comorbidities and stabilization before possible surgery for bowel performation Attending Physician: Chun Lindsey MD Primary Care Provider: Alon Salazar MD History of Present Illness History of Present Illness As per the previous notes and the patient: Marcial Villaseñor is a 64 year old male with past medical history of cath/angio as per the but no details available since it was many years ago and the patient did not have significant coronary artery disease or stenting or any cardiomyopathy in the past, back pain due to heavy lifting s/p spinal surgery done few weeks ago and on high doses of opioids with uncontrolled ongoing pain from the last few days came with abdominal pain associated with nausea and vomiting. As per the the patient was having projectile vomiting that smelled like feces. The patient reported also having fever and chills from 1 day after the abdominal pain. There was no associated chest pain or chest pressure or diaphoresis or any syncope. There was no history of any lower leg swellings or orthopnea or PND as per the family/patient. No alcohol intake or any other drug abuse. Review of Systems 2 General: Reports: 10 or more systems reviewed and unremarkable except in HPI and below Medications/Allergies Home Medications ?Medication ?Instructions ?Recorded ?Confirmed ?Last Taken ?Type cyclobenzaprine 10 mg tablet 10 mg PO BID PRN muscle s pasms 03/08/25 03/14/25 Unknown History esomeprazole magnesium 20 mg 20 mg PO DAILY 03/08/25 1 03/13/25 History capsule,delayed release oxycodone-acetaminophen 10 mg-325 1 tab PO Q4H PRN rylan n 7 days #42 03/12/25 03/14/25 03/13/25 Rx mg tablet tabs diphenhydramine 25 1 tab PO Q4H PRN Sleep 03/1403/14/25 Unknown History mg-acetaminophen 500 mg tablet (Tylenol PM Extra Strength) docusate sodium 100 mg capsule 100 mg PO BID 03/14/25 03/14/25 03/13/25 History Allergies Allergy/AdvReac Type Severity Reaction Status Date / Time No Known Allergies Allergy Verified 03/12/25 09:00 Current Medications Generic Name Dose Route Start Last Admin Trade Name Freq PRN Reason Stop Dose Admin Heparin Sodium (Porcine) 5,000 unit 10/22/25 11:45 03/14/25 12:42 Heparin 5,000 Unit/Ml Inj 1 Ml SUBCUT Not Given Q12H ALE Hydromorphone HCl 1 mg 03/14/25 04:44 03/14/25 06:05 Hydromorphone 0.5 Mg/0.5 Ml Inj IVP 1 mg ONCE PRN Administration severe pain Piperacillin Sod/Tazobactam 50 mls @ 12.5 mls/hr 03/14/25 12:00 03/14/25 12:28 Sod 3.375 gm/ Sodium Chloride IV 12.5 mls/hr Q8H ALE Administration Protocol Morphine Sulfate 2 mg 03/14/25 11:09 03/14/25 11:14 Morphine 4 Mg/Ml Sdv 1 Ml IVP 2 mg Q2H PRN Administration SEVERE PAIN Ondansetron HCl 4 mg 03/14/25 11:45 03/14/25 12:28 Ondansetron 2 Mg/Ml Sdv 2 Ml IVP 4 mg Q6H ALE Administration Pantoprazole Sodium 40 mg 03/14/25 11:45 03/14/25 12:28 Pantoprazole 40 Mg Sdv IVP 40 mg Q12H ALE Administration PFSH Acute 2 PFSH: Medical History (Updated 03/14/25 @ 06:57 by Maria Isabel Mireles MD) Neck pain with history of cervical spinal surgery Spinal stenosis of cervical region with radiculopathy Social History Smoking and tobacco/nicotine status: never used tobacco/nicotine Alcohol intake: never Substance/Drug Use: never Vitals/I&O/Wt Last Vital Signs Temp 98.7 F 03/14/25 07:24 Pulse 130 H 03/14/25 08:56 Resp 34 H 03/14/25 11:14 BP 130/83 03/14/25 08:14 Pulse Ox 91 03/14/25 11:14 O2 Del Method Nasal Cannula 03/14/25 08:56 O2 Flow Rate 4 03/14/25 08:56 03/13/25 03/14/25 03/14/25 22:59 06:59 14:59 Intake Total 1150 / 1150 Balance 1150 / 1150 Weight last 48 hrs Weight 92.986 kg Physical Exam 2 Narrative: General: Alert and oriented, with NG tube in place and on negative suction, in severe distress in agony due to abdominal pain and having shallow breathing pattern due to pain HEENT: Normocephalic, atraumatic, grossly unremarkable exam Cardio: Tachycardia, normal S1-S2 without any murmurs, rubs, or gallops and JVD normal Respiratory: Bilateral equal air entry however having shallow breathing and thoracoabdominal pattern, without any wheezes, stridor, rhonchi GI: Abdomen tender and rigid on all quadrants with distention, unable to comment on organomegaly due to distention and limited deep palpation exam, bowel sounds not exaggerated on auscultation however seems decreased. Neuro: intact cranial nerves motor and sensory and cerebellar/coordination function without any focal neurological deficit Behavior: Appropriate and cooperative Extremities: Adequate palpable pulses, no edema or cyanosis observed. Urinary Catheter Management: Bourne: Cath Placed During This Visit: yes Reason for Continuing Indwelling Catheter: Accurate Measurement of Urinary Output in Critically Ill Patients Urinary Catheter Date of Insertion: 03/14/25 Urinary Catheter Time of Insertion: 03:45 Data 03/14/25 03:00 03/14/25 03:00 Micro: Microbiology 03/14/25 04:23 Blood Culture - Preliminary Blood SPECIMEN COLLECTED 03/14/25 03:00 Blood Culture - Preliminary Blood SPECIMEN COLLECTED A&P Assessment and plan 1. Sepsis: - Secondary to and with source of perforated bowels/intra-abdominal infection, fluid resuscitation and to continue maintenance fluids - Blood cultures and urine cultures - Lactate - Oxygen therapy as needed - Broad-spectrum antibiotics with Zosyn and bank - Maintain MAP above 65 - Monitoring of neuro vitals and hemodynamics rigorously - Currently patient is having adequate urine output and capillary refill however is at risk of having septic shock in the patient condition has been explained to the family - Surgery on board and to follow the plan - As needed acetaminophen as IV for fever and pain (based on pain scale) 2. Perforated bowel: - Surgery on board and follow the recs - Patient having tachycardia and high blood pressure secondary to severe abdominal pain and back pain -Keep n.p.o. on NGT suction - Adequate analgesia with strong opioids morphine and Dilaudid are the options as IV however it is also a limitation considering he has bowel perforation and opioids can lead to constipation and decreased bowel movements, further surgery recommendations to follow. - Precedex to consider increase of tachycardia and agitation since the patient has been taking high-dose of opioids at home at baseline and could be an element of withdrawal leading to tachycardia - Echo considering patient might require surgery and as a baseline study however in the light of risk and benefits surgery is a priority considering perforated bowel carries high risk of sepsis and septic shock. - 3. Spinal stenosis of cervical region with radiculopathy: - Patient voicing severe back pain and to provide adequate analgesia PDMP PDMP Reviewed: Not Reviewed Consult Attestations 2 Medical Necessity Statement: Marcial Villaseñor's hospital stay will require greater than 2 midnights for management of perforated bowel and sepsis Time Spent in Patient Care: 16 - 35 minutes (>than 50% of time sp ent in counselling and/or direct pt care on unit) . Critical Care Time: The high probability of a clinically significant, sudden or life threatening deterioration, as referenced in this documentation, required my full and direct attention, intervention and personal management. The critical care time shown is in addition to time spent performing any reported separately billable procedures and includes the following: [x] Data and vital sign review and interpretation [x ] Patient assessment, examination and intervention [x] Medication orders and management [x] Patient/Family updates as able [x] Care Coordination and Documentation. Critical Care Time (min): 35 Other Attestations: Other Attestations: Patient condition has been discussed at length with the patient/family, I have independently reviewed the chart labs imaging/diagnostics/EKG. the goals of care and code status with the patient/family/NOK/legal cash posting representative, and documented accordingly. The patient/family has been informed about the current condition and further plan of care. Agreed with the plan of care and understood without any language barrier. Every effort was made to ensure accuracy of technical project lead. Any obvious errors or omissions should be clarified with the author of the document. Coding Level of Care Code Critical Care >/= 30 minutes Diagnoses Sepsis A41.9 Perforated bowel K63.1 Spinal stenosis of cervical region with radiculopathy M48.02; M54.12
--- NOTE | 2025-03-14 13:21 | P.CONIM_ITS ---
Providers/Reason For Consult 2 Consulting Physician/Specialty*: joseph casas MD general surgery Reason for Consult*: perforated diverticulitis Requesting Physician: MD ry ER provider Attending Physician: Chun Lindsey MD Primary Care Provider: Alon Salazar MD History of Present Illness History of Present Illness Marcial Villaseñor is a 64 year old male who had back surgery two days ago on Wednesday. Every since then he has had LLQ and back pain. He had N/V and fever and passing flatus. He has had diverticulitis years ago that responded to antibiotics only. He is not on any strong blood thinners. He was not sent home on antibiotics. He has not had abdominal surgery in past. CT scan is showing some free air and fluid along left gutter. Possibly some fluid above liver. Review of Systems 2 Narrative: Constitutional: denies rigors, singnificant weight gain, increased appetite HEENT: denies chronic cough, blurry vision, excessive tearing, eye pain, flashing lights, odynophagia, painful mastication, change in voice, change in taste, chronic sore throat, hypersalivation Heart: denies racing heart, palpitations, othropnea, PND Lungs: denies hemoptysis, pain with deep inspiration, chronic bronchitis GI: denies hematemesis, hematochezia, dysphagia, tenesmus : denies polyuria, hematuria, painful micturation Musculoskeletal: denies hemarthrosis, Muscle wasting, change in amubation Neuro: denies new onset syncope, dysesthesia, dysequilibrium, ptosis eyelid or face SKin: denies new onset hyperalgia, new rash new cyanosis Endocrine: denies new polyuria, polydipsia, polyphagia, heat intolerance, excessive energy Hem/Onc: denies new petechiae, swollen glands, new excessive epstaxis Psych: denies racing thought Medications/Allergies Home Medications ?Medication ?Instructions ?Recorded ?Confirmed ?Last Taken ?Type cyclobenzaprine 10 mg tablet 10 mg PO BID PRN muscle s pasms 03/08/25 03/14/25 Unknown History esomeprazole magnesium 20 mg 20 mg PO DAILY 03/08/25 1 03/13/25 History capsule,delayed release oxycodone-acetaminophen 10 mg-325 1 tab PO Q4H PRN rylan n 7 days #42 03/12/25 03/14/25 03/13/25 Rx mg tablet tabs diphenhydramine 25 1 tab PO Q4H PRN Sleep 03/1403/14/25 Unknown History mg-acetaminophen 500 mg tablet (Tylenol PM Extra Strength) docusate sodium 100 mg capsule 100 mg PO BID 03/14/25 03/14/25 03/13/25 History Allergies Allergy/AdvReac Type Severity Reaction Status Date / Time No Known Allergies Allergy Verified 03/12/25 09:00 Current Medications Generic Name Dose Route Start Last Admin Trade Name Freq PRN Reason Stop Dose Admin Heparin Sodium (Porcine) 5,000 unit 03/14/25 11:45 03/14/25 12:42 Heparin 5,000 Unit/Ml Inj 1 Ml SUBCUT Not Given Q12H ALE Hydromorphone HCl 1 mg 03/14/25 04:44 03/14/25 06:05 Hydromorphone 0.5 Mg/0.5 Ml Inj IVP 1 mg ONCE PRN Administration severe pain Piperacillin Sod/Tazobactam 50 mls @ 12.5 mls/hr 03/14/25 12:00 03/14/25 12:28 Sod 3.375 gm/ Sodium Chloride IV 12.5 mls/hr Q8H ALE Administration Protocol Morphine Sulfate 2 mg 03/14/25 11:09 03/14/25 11:14 Morphine 4 Mg/Ml Sdv 1 Ml IVP 2 mg Q2H PRN Administration SEVERE PAIN Ondansetron HCl 4 mg 03/14/25 11:45 03/14/25 12:28 Ondansetron 2 Mg/Ml Sdv 2 Ml IVP 4 mg Q6H ALE Administration Pantoprazole Sodium 40 mg 03/14/25 11:45 03/14/25 12:28 Pantoprazole 40 Mg Sdv IVP 40 mg Q12H ALE Administration PFSH Acute 2 PFSH: Medical History (Updated 03/14/25 @ 06:57 by Maria Isabel Mireles MD) Neck pain with history of cervical spinal surgery Spinal stenosis of cervical region with radiculopathy Social History Smoking and tobacco/nicotine status: never used tobacco/nicotine Alcohol intake: never Substance/Drug Use: never Vitals/I&O/Wt Last Vital Signs Temp 98.7 F 03/14/25 07:24 Pulse 130 H 03/14/25 08:56 Resp 34 H 03/14/25 11:14 BP 130/83 03/14/25 08:14 Pulse Ox 91 03/14/25 11:14 O2 Del Method Nasal Cannula 03/14/25 08:56 O2 Flow Rate 4 03/14/25 08:56 03/13/25 03/14/25 03/14/25 22:59 06:59 14:59 Intake Total 1150 / 1150 Balance 1150 / 1150 Weight last 48 hrs Weight 205 lb Physical Exam 2 Narrative: Patient is a well developed well nourished and in NAD and is afebrile with vitals stable and is answering questions appropriately with a normal affect and is alert and oriented x3 HEENT: normocephalic with normal external ears and nonicteric, oral mucosa moist and dentition normal for age, trachea midline with no large masses visualized Heart: RRR, no gallops murmurs or rubs, normal PMI with no thrills Lungs: normal excursions, no loud audible wheezing, no subcutaneous emphysema Abdomen: nondistended, no gross hepatosplenomegaly, no masses, no rigidity but tender in LLQ, no loud borborygmi Neuro: nonfocal, BAKER, grossly normal sensation Musculoskeletal: good muscle tone, no fasciculations, normal gait Skin: pink warm and dry with no rashes or ecchymosis Vascular: good radial pulses, no ulceration, less than 2 second capillary refill in hand : deferred Urinary Catheter Management: Bourne: Cath Placed During This Visit: yes Reason for Continuing Indwelling Catheter: Accurate Measurement of Urinary Output in Critically Ill Patients Urinary Catheter Date of Insertion: 03/14/25 Urinary Catheter Time of Insertion: 03:45 Data 03/14/25 03:00 03/14/25 03:00 Micro: Microbiology 03/14/25 04:23 Blood Culture - Preliminary Blood SPECIMEN COLLECTED 03/14/25 03:00 Blood Culture - Preliminary Blood SPECIMEN COLLECTED A&P Assessment and plan 1. Sepsis: 2. Perforated bowel: Not responding to conservative measures including fluid hydration and antibiotics and family has agreed to proceed with colectomy and ostomy. They understands risks, benefits and alternatives to surgery and wishes to proceed. Risks include cardiopulmonary problems, bleeding, infection, cardiopulmonary problems, re leakage, injury to surrounding structures, aspiration, more surgery. PDMP PDMP Reviewed: Not Reviewed Coding Level of Care Code 59420 Diagnoses Sepsis A41.9 Perforated bowel K63.1
[2025-03-14 13:27] LABS: Alanine Aminotransferase 21 U/L (0-41); Albumin Level 3.9 g/dL (3.5-5.2); Alkaline Phosphatase 82 U/L (40-130); Anion Gap 22.6 (5-19); Aspartate Amino Transferase 33 U/L (0-40); Blood Urea Nitrogen 18 mg/dL (8-23); Calcium 9.4 mg/dL (8.5-10.5); Carbon Dioxide 19 mmol/L (22-29); Chloride 103 mmol/L (98-107); Creatinine Clr Calc Pharmacy 79.7672; Globulin 2.4 g/dL (1.3-4.6); Glucose 124 mg/dL (65-115); Magnesium 1.7 mg/dL (1.7-2.3); Osmolality Calculated 293 mOsm/kg (285-295); Potassium 4.6 mmol/L (3.5-5.1); Sodium 140 mmol/L (136-145); Total Protein 6.3 g/dL (6.6-8.7)
[2025-03-14 13:46] LABS: Slide Review Slide Review Perform
[2025-03-14 13:47] LABS: Absolute Segmented Neutrophil 6.0 10/cmm (1.6-7.1); Band Neutrophils Absolute 2.8 10^3/cmm (0.0-1.2); Total Cells Counted 100 (0-100)
[2025-03-14 13:48] LABS: Atypical Lymphs 0.0 % (0-5); Giant Platelets Trace
--- NOTE | 2025-03-14 14:53 | PC.NURSE ---
Notified, Natalia, patient's of surgery update.
--- NOTE | 2025-03-14 16:30 | PHA.VACGOAL ---
Vancomycin Goal - Goal Vancomycin Goal:: 15-20 mg/L Vancomycin Indication:: Other (SEEPSIS) - Therapy Current therapy:: Pip/Tazo Day of therpy:: Day []of [] . Actual body weight (kg): 205 lb - Data Labs: WBC 11.71 10^3/uL (3.29-11.43) H 03/14/25 12:18 RBC 5.09 10^6/uL (3.85-5.65) 03/14/25 12:18 Hgb 15.10 g/dL (11.27-16.99) 03/14/25 12:18 Hct 46.3 % (37-53) 03/14/25 12:18 MCV 91.0 fl (82-101) 03/14/25 12:18 MCH 29.7 pg (27-33) 03/14/25 12:18 MCHC 32.6 g/dL (30-55) 03/14/25 12:18 RDW 12.8 % (12.1-15.1) 03/14/25 12:18 Sodium 140 mmol/L (136-145) 03/14/25 12:18 Potassium 4.6 mmol/L (3.5-5.1) 03/14/25 12:18 Chloride 103 mmol/L (98-107) 03/14/25 12:18 Carbon Dioxide 19 mmol/L (22-29) L 03/14/25 12:18 Anion Gap 22.6 (5-19) H 03/14/25 12:18 BUN 18 mg/dL (8-23) 03/14/25 12:18 Creatinine 1.1 mg/dL (0.7-1.2) 03/14/25 12:18 GFR Calculation 67.8 mL/min (90-130) L 03/14/25 12:18 Last dialysis session:: N/A Treatment plan:: new consult Regimen:: STARTED 2000 MG A LOADING DOSE PER PROTOCOL. MAINTENANCE DOSE SCHEDULED OF 1500 MG Q12H TO START AT 0200 ON 03/15/25. WILL CONTINUE TO MONITOR DAILY AND OBTAIN TROUGH PRIOR TO 4TH DOSE.
--- NOTE | 2025-03-14 16:38 | PC.NURSE ---
Patient's family notified of surgery closing.
--- NOTE | 2025-03-14 17:04 | PC.OT ---
OT EVALUATION ATTEMPTED IN P.M. PATIENT IN SURGERY WILL ATTEMPT AGAIN TOMORROW.
--- NOTE | 2025-03-14 19:26 | P.OP_ITS ---
Operative Report Date of procedure: March 14, 2025 Pre-op diagnosis: Perforated diverticulitis Post-op diagnosis: Same Post-op findings: Perforated antimesenteric wall sigmoid diverticulitis and sealed epiploica fat about 14-18 cm above peritoneal refection Procedure done: exploratory lap, sigmoid resection and end colostomy Specimens removed/disposition: fluid sent for C/S and sigmoid colon Surgeon: Arnulfo Sullivan MD Estimated blood loss: minimal Findings: see above Brief History: CT showing perforated sigmoid colon and diverticulitis. Procedure: After adequate general anesthesia, abdomen was prepped and draped. A pruitt and NG was already in place preoperatively. Lower midline incision was made and abdominal incision was made. Some cloudy tannish fluid that did not have strong feculent odor was encountered sent for C/S. There was no blood in this fluid. THe small bowel was mild to moderate distention with fluid and air. There was adhesions of sigmoid to lateral pelvic wall with edema here and along left gutter of descending colon with pooling of this fluid. More edema of colon wall was noted proximal to sigmoid stuck to lateral pelvic sidewall. Fibrin deposition was noted here as well and very thick mesentery. There was an epiploica fat pad stuck to and antimesenteric all diverticulum that when removed showed an open diverticulm with some yellowing purulence in the diverticulum. No feculent material was seen coming from this opening. But the stool felt in this portion of the bowel felt hard and not liquid in nature. An avascular opening was made in the sigmoid mesentery about 8 cm from the peritoneal r efection and bowel divided with endo ERLIN stapler. This portion of the bowel did not have as much edema or inflammation as compared to perforation site. About 14-16 proximal to peritoneal refection, the bowel was divided with endo ERLIN several cm proximal to perforation site. The intervening mesentery was divided with ligasure. The proximal portion of the specimen was marked with a 4-0 vicryl suture and sent to path. THe proximal stapled descending colon had to be mobilized along the gutter along the line of Toldt to get length to perform end colostomy. The NG was palpated in the stomach. The transverse colon did not appear inflamed. The small bowel was run from ligament of Treitz to ileocecal valve and was normal. Appendix appeared normal. Ascending and transverse colon appeared normal. Portions of liver seen appeared normal as well as the gallbladder. All four quadrants of abdominal cavity was irrigated out warm saline until effluent was clear. Three fluted drained were placed in both gutters with tip placed near the subdiaphragmatic spaces. They were brought through skin stab incisions and secured to skin with 3-0 nylons. An ellipse of skin and sub cutaneous fat was removed in LLQ and fascia was incised in cruciate manner. Rectus muscle was in directions of fiber, the periteneum was incised and tunnel through anterior abdominal wall was stretched to allow 2- 3 fingers to go through this to allow passage of end colostomy through. Care was taken not to twist this bowel. The lower midline was then closed with looped PDS and the subcutaneous tissues were irrigated out with iricept solution and a fluted drain was left in wound, brought through separate skin stab incision and secured to skin with 3-0 nylon. Skin was closed with otis. Ostomy was matured with interrupted 4-0 vicryl and ostomy was pink and viable. Ostomy bag was placed and patient taken back to recovery in stable condition.
[2025-03-14 20:04] LABS: MRSA PCR OZH (swab) NOT DETECTED (Negative)
[2025-03-15] VITALS (38 sets, daily range): BP systolic 94–154; BP diastolic 73–98; PULSE 93–110; RESP 12–38; TEMP 36.8–37.2; O2SAT 90–97
[2025-03-15] MEDS: ondansetron 2 mg/ML SDV 2 mL 4 MG IVP ×4 (00:19→18:19)
[2025-03-15] MEDS: pantoprazole 40 mg SDV IVP ×2 (00:19→11:54)
[2025-03-15] MEDS: heparin 5,000 unit/mL INJ 1 mL 5000 UNIT SUBCUT ×2 (00:19→11:54)
[2025-03-15] MEDS: morphine 4 mg/mL SDV 1 mL 2 MG IVP ×4 (00:51→19:32)
[2025-03-15] MEDS: HYDROmorphone 0.5 MG/0.5 ML INJ 1 MG IVP ×5 (03:09→21:42)
[2025-03-15] MEDS: piperacillin-tazobactam 3.375 GM in sodium chloride 0.9% (plus) 50 ML IV ×3 (03:10→19:59)
[2025-03-15 08:16] LABS: Hematocrit 37.1 % (37-53); Hemoglobin 12.30 g/dL (11.27-16.99); Mean Corpuscular HGB Conc 33.2 g/dL (30-55); Mean Corpuscular Hemoglobin 29.6 pg (27-33); Mean Corpuscular Volume 89.4 fl (82-101); Nucleated Red Blood Cells % 0 %; Platelet Count 226 10^3/cmm (157-399); Red Blood Count 4.15 10^6/uL (3.85-5.65); White Blood Count 8.05 10^3/uL (3.29-11.43)
[2025-03-15 08:38] LABS: Alanine Aminotransferase 16 U/L (0-41); Albumin Level 3.1 g/dL (3.5-5.2); Alkaline Phosphatase 46 U/L (40-130); Anion Gap 18.2 (5-19); Aspartate Amino Transferase 20 U/L (0-40); Blood Urea Nitrogen 19 mg/dL (8-23); Calcium 8.3 mg/dL (8.5-10.5); Carbon Dioxide 22 mmol/L (22-29); Chloride 106 mmol/L (98-107); Creatinine Clr Calc Pharmacy 97.4933; Globulin 2.4 g/dL (1.3-4.6); Glucose 154 mg/dL (65-115); Magnesium 1.7 mg/dL (1.7-2.3); Osmolality Calculated 299 mOsm/kg (285-295); Potassium 4.2 mmol/L (3.5-5.1); Sodium 142 mmol/L (136-145); Total Protein 5.5 g/dL (6.6-8.7)
--- NOTE | 2025-03-15 08:53 | P.PN_ITS ---
Subjective 2 Subjective: Pain is better Vitals/I&O/Wt Last Vital Signs Temp 98.2 F 03/15/25 04:26 Pulse 101 H 03/15/25 06:30 Resp 20 H 03/15/25 07:32 BP 115/87 03/15/25 06:30 Pulse Ox 91 03/15/25 06:30 O2 Del Method Nasal Cannula 03/14/25 08:56 O2 Flow Rate 4 03/14/25 08:56 03/14/25 03/15/25 03/15/25 22:59 06:59 14:59 Intake Total 1999 2750 / 4800 50 / 50 Output Total 925 / 925 1460 / 2385 Balance 1075 / 1125 1290 / 2415 50 / 50 Weight last 48 hrs Weight 204 lb 15.984 oz Weight 205 lb Physical Exam 2 Narrative: Patient is a well developed well nourished and in NAD and is afebrile with vitals stable and is answering questions appropriately with a normal affect and is alert and oriented x3 HEENT: normocephalic with normal external ears and nonicteric, oral mucosa moist and dentition normal for age, trachea midline with no large masses visualized Heart: RRR, no gallops murmurs or rubs, normal PMI with no thrills Lungs: normal excursions, no loud audible wheezing, no subcutaneous emphysema Abdomen: nondistended, no gross hepatosplenomegaly, no masses, no rigidity or rebound, no loud borborygmi Neuro: nonfocal, BAKER, grossly normal sensation Musculoskeletal: good muscle tone, no fasciculations Skin: pink warm and dry with no rashes or ecchymosis Vascular: good radial pulses, no ulceration, less than 2 second capillary refill in hand : deferred Urinary Catheter Management: Bourne: Cath Placed During This Visit: yes Reason for Continuing Indwelling Catheter: Accurate Measurement of Urinary Output in Critically Ill Patients Urinary Catheter Date of Insertion: 03/14/25 Urinary Catheter Time of Insertion: 03:45 Data 03/14/25 12:18 03/15/25 08:08 Micro: Microbiology 03/14/25 04:23 Blood Culture - Preliminary Blood NEGATIVE TO DATE 03/14/25 03:00 Blood Culture - Preliminary Blood NEGATIVE TO DATE A&P Assessment and plan 1. Perforated bowel: Plan: Keep on antibiotics and await bowel function return. This may occur later or be delayed from back surgery and recovery of any nerve dysfunction to the nerves going to bowel. PDMP PDMP Reviewed: Not Reviewed Attestations 2 Medical Necessity Statement*: Awaiting bowel function return that may take up to a week to return Coding Level of Care Code Acute Code for Chg Fwd Diagnoses Perforated bowel K63.1
--- NOTE | 2025-03-15 08:56 | USCV_ITS ---
Marcial Villaseñor Age: 64 Gender: M : 1960 Exam Date: 03/15/2025 04:07 Ordering Phys: Chun Lindsey MD Technologist: BRIDGETTE Exam Location: [facility] [place] Indication: Elevated Trop BP: 135 / 92 HR: 89 Rhythm: Sinus Technical Quality: Adequate MEASUREMENTS (Male / Female) Normal Values 2D ECHO LV Diastolic Diameter PLAX 6.0 cm 4.2 - 5.9 / 3.9 - 5.3 cm IVS Diastolic Thickness 0.9 cm 0.6 - 1.0 / 0.6 - 0.9 cm IVS Systolic Thickness 1.0 cm LVPW Diastolic Thickness 0.8 cm 0.6 - 1.0 / 0.6 - 0.9 cm LVPW Systolic Thickness 1.5 cm LVOT Diameter 2.1 cm LV Ejection Fraction 2D Teich 54.6 % LV Ejection Fraction MOD 4C 59.6 % LV Ejection Fraction MOD 2C 54.5 % LV Ejection Fraction 2C AL 57.9 % LA Diameter 3.2 cm RA Systolic Volume 4C AL 34.4 ml RA Systolic Volume 4C MOD 28.5 ml LA Sys Volume AL 38.0 cm cubed LA Sys Volume Index AL 17.6 cm cubed/m squared Aorta at Sinotubular Diameter 3.6 cm M-MODE LA Ao Ratio MM 1.3 AV Cusp Separation MM 2.0 cm DOPPLER AV Peak Velocity 116.0 cm/s LVOT Peak Velocity 98.0 cm/s AV Area Cont Eq vti 2.9 cm squared AV Area Cont Eq pk 2.9 cm squared MV Peak Velocity 127.0 cm/s MV Area PHT 8.3 cm squared Mitral E to A Ratio 0.7 TR Peak Velocity 111.0 cm/s TR Peak Gradient 4.9 mmHg TV Peak E Velocity 63.0 cm/s PV Peak Velocity 107.0 cm/s FINDINGS Left Ventricle Normal left ventricular size and systolic function, EF 60%.no regional wall motion abnormalities. Grade I/IV diastolic dysfunction (abnormal relaxation filling pattern), normal to mildly elevated filling pressures. Right Ventricle Normal right ventricular size and systolic function. Right Atrium Normal right atrial size. Left Atrium Normal left atrial size. IA Septum Normal interatrial septum. Mitral Valve Trace mitral valve regurgitation. Aortic Valve No gross abnormalities noted Tricuspid Valve No gross abnormalities noted Pulmonic Valve Pulmonic valve not well visualized. Pericardium No pericardial effusion. Aorta Normal aortic annulus size. IVC Inferior vena cava not visualized. CONCLUSIONS Normal left ventricular size and systolic function, EF 60%.no regional wall motion abnormalities. Grade I/IV diastolic dysfunction (abnormal relaxation filling pattern), normal to mildly elevated filling pressures. Trace mitral valve regurgitation. There is no pericardial effusion. There are no intracardiac masses. No similar previous studies are available for comparison Dr Olivia Lindsey MD [facility] (Electronically Signed) Final Date: 15 March 2025 23:49 S
--- NOTE | 2025-03-15 09:36 | PC.NURSE ---
Notified Dr. Harris's office that patient is in ICU 8 s/p surgery for a bowel resection. RACHEL Edwards to bedside to assess patients wound, dressing removed with no bleeding or bruising noted, Silver dressing applied.
[2025-03-15 09:46] LABS: Slide Review Slide Review Perform
--- NOTE | 2025-03-15 11:39 | P.PN_ITS ---
Subjective 2 Subjective: generally the patient is doing well on NGT suction , abdomen is less tense and tender. Called transfer center for possible transfer considering med specialist is unavailable at the moment Vitals/I&O/Wt Last Vital Signs Temp 98.3 F 03/15/25 08:00 Pulse 99 03/15/25 10:00 Resp 16 03/15/25 10:45 BP 120/77 03/15/25 10:00 Pulse Ox 95 03/15/25 10:00 O2 Del Method Nasal Cannula 03/15/25 10:00 O2 Flow Rate 4 03/15/25 10:00 03/14/25 03/15/25 03/15/25 22:59 06:59 14:59 Intake Total 1999 2750 / 4800 50 / 50 Output Total 92 / 925 1460 / 2385 Balance 1075 / 1125 1290 / 2415 50 / 50 Weight last 48 hrs Weight 92.986 kg Weight 92.986 kg Physical Exam 2 Narrative: General: Alert and oriented, with NG tube in place and on negative suction, relatively better looking today HEENT: Normocephalic, atraumatic, grossly unremarkable exam Cardio: Tachycardia, normal S1-S2 without any murmurs, rubs, or gallops and JVD normal Respiratory: Bilateral equal air entry however having shallow breathing and thoracoabdominal pattern, without any wheezes, stridor, rhonchi GI: mild distended abdomen without tenderness or rigidity, with normal bowel sounds, with new colostomy and having drains Neuro: intact cranial nerves motor and sensory and cerebellar/coordination function without any focal neurological deficit Behavior: Appropriate and cooperative Extremities: Adequate palpable pulses, no edema or cyanosis observed. Urinary Catheter Management: Bourne: Cath Placed During This Visit: yes Reason for Continuing Indwelling Catheter: Accurate Measurement of Urinary Output in Critically Ill Patients Urinary Catheter Date of Insertion: 03/14/25 Urinary Catheter Time of Insertion: 03:45 Data 03/15/25 08:08 03/15/25 08:08 Micro: Microbiology 03/14/25 14:30 Gram Stain - Final Peritoneal Fluid 03/14/25 04:23 Blood Culture - Preliminary Blood NEGATIVE TO DATE 03/14/25 03:00 Blood Culture - Preliminary Blood NEGATIVE TO DATE A&P Assessment and plan 1. Sepsis: - Currently resolving, secondary to and with source of perforated bowels/intra- abdominal infection s/p ex lap, new colostomy - source control achieved -Blood cultures till date negative, to follow-up with body fluid specimen and urine cultures which are pending - Oxygen therapy as needed - Broad-spectrum antibiotics with Zosyn and vancomycin to continue - Maintain MAP above 65 - Monitoring of neuro vitals and hemodynamics rigorously -Patient for possible transfer since lack of surgical expertise available at the moment - As needed acetaminophen as IV for fever and pain (based on pain scale) 2. Perforated bowel: -- Patient s/p ex lap, new colostomy and on drains with NGT on suction - Patient tachycardia and abdominal tenseness has improved, however having back pain secondary to recent spine surgery therefore to continue on adequate analgesia - Keep n.p.o. - Adequate analgesia with strong opioids morphine and Dilaudid are the options as IV however it is also a limitation considering he has bowel perforation and opioids can lead to constipation and decreased bowel movements. - Incentive spirometry - Out of bed mobility - Monitor intake and output - To initiate transfer under surgery since surgery expertise is not available at the moment in the hospital 3. Spinal stenosis of cervical region with radiculopathy: - Recent spine surgery, provide adequate analgesia -OT PT evaluation PDMP PDMP Reviewed: Not Reviewed Attestations 2 Medical Necessity Statement*: Marcial Villaseñor's hospital stay will require greater than 2 midnights for s/p ex lap of perforated bowels and severe sepsis which is resolving Time Spent in Patient Care: 16 - 35 minutes (>than 50% of time sp ent in counselling and/or direct pt care on unit) . Critical Care Time: The high probability of a clinically significant, sudden or life threatening deterioration, as referenced in this documentation, required my full and direct attention, intervention and personal management. The critical care time shown is in addition to time spent performing any reported separately billable procedures and includes the following: [x] Data and vital sign review and interpretation [x ] Patient assessment, examination and intervention [x] Medication orders and management [x] Patient/Family updates as able [x] Care Coordination and Documentation. Critical Care Time (min): 35 Other Attestations: Patient condition has been discussed at length with the patient/family, I have independently reviewed the chart labs imaging/diagnostics/EKG. the goals of care and code status with the patient/family/NOK/legal public health representative, and documented accordingly. The patient/family has been informed about the current condition and further plan of care. Agreed with the plan of care and understood without any language barrier. Every effort was made to ensure accuracy of music education director. Any obvious errors or omissions should be clarified with the author of the document. Coding Level of Care Code Critical Care >/= 30 minutes Diagnoses Sepsis A41.9 Sepsis acute organ dysfunction status: without acute organ dysfunction Sepsis type: sepsis due to unspecified organism Perforated bowel K63.1 Spinal stenosis of cervical region with radiculopathy M48.02; M54.12
--- NOTE | 2025-03-15 18:23 | PM.TDS ---
Transfer Summary Providers Date of Admission: 03/14/25 07:38 Date of Discharge/Transfer: 03/15/25 Attending Provider at Admission: José Miguel Dunlap Attending Provider at Transfer: Chun Lindsey MD Primary Care Provider: Alon Salazar MD Transfer Plans: Anticipated date of transfer: 03/15/25. Diagnoses at Discharge Discharge Diagnosis 1. Sepsis: 2. Perforated bowel: 3. Spinal stenosis of cervical region with radiculopathy: Reason for Visit Reason for Visit abdomen pain Brief History: As per the previous notes and the patient: Marcial Villaseñor is a 64 year old male with past medical history of cath/angio as per the but no details available since it was many years ago and the patient did not have significant coronary artery disease or stenting or any cardiomyopathy in the past, back pain due to heavy lifting s/p spinal surgery done few weeks ago and on high doses of opioids with uncontrolled ongoing pain from the last few days came with abdominal pain associated with nausea and vomiting. As per the the patient was having projectile vomiting that smelled like feces. The patient reported also having fever and chills from 1 day after the abdominal pain. There was no associated chest pain or chest pressure or diaphoresis or any syncope. There was no history of any lower leg swellings or orthopnea or PND as per the family/patient. No alcohol intake or any other drug abuse. Hospital Course Hospital Course Patient underwent ex lap with colostomy and drains placed and NGT on suction. Due to unavailability of surgeon the patient for transfer to another facility where surgery is available. The patient is doing fine vitals are getting better however considering patient perforated bowel and surgery the patient needs to be under surgery care to manage any postop complications and wound care. The patient also has spinal surgery and is on high-dose opioids, to follow without repeat evaluation. Wound on the spine surgery is clean no discharge. The patient family preferred to to be transferred to [facility] however after calling because since there was no bed available and [facility] agreed to have the patient under surgery, the patient was informed and agreed with the plan of care. Patient condition has been discussed at length with the patient/family, I have independently reviewed the chart labs imaging/diagnostics/EKG. the goals of care and code status with the patient/family/NOK/legal loan servicing representative, and documented accordingly. The patient/family has been informed about the current condition and further plan of care. Agreed with the plan of care and understood without any language barrier. Every effort was made to ensure accuracy of financial planning analyst. Any obvious errors or omissions should be clarified with the author of the document. Physical Exam Narrative: General: Alert and oriented, with NG tube in place and on negative suction, relatively better looking today HEENT: Normocephalic, atraumatic, grossly unremarkable exam Cardio: Tachycardia, normal S1-S2 without any murmurs, rubs, or gallops and JVD normal Respiratory: Bilateral equal air entry however having shallow breathing and thoracoabdominal pattern, without any wheezes, stridor, rhonchi GI: mild distended abdomen without tenderness or rigidity, with normal bowel sounds, with new colostomy and having drains Neuro: intact cranial nerves motor and sensory and cerebellar/coordination function without any focal neurological deficit Behavior: Appropriate and cooperative Extremities: Adequate palpable pulses, no edema or cyanosis observed. Urinary Catheter Management: Bourne: Cath Placed During This Visit: yes Reason for Continuing Indwelling Catheter: Accurate Measurement of Urinary Output in Critically Ill Patients Urinary Catheter Date of Insertion: 03/14/25 Urinary Catheter Time of Insertion: 03:45 TS Data Studies Completed and Pending Pending at discharge Category Date Time Status Anaerobic Culture Routine Lab 03/14/25 14:30 Results Blood Culture Stat Lab 03/14/25 04:23 Results Body Fluid Culture & GS Routine Lab 03/14/25 14:30 Results CBC Auto Diff [Complete Blood Count w/Auto] AM LABS Lab 03/16/25 04:00 Ordered CBC Auto Diff [Complete Blood Count w/Auto] AM LABS Lab 03/17/25 04:00 Ordered CBC Auto Diff [Complete Blood Count w/Auto] AM LABS Lab 03/18/25 04:00 Ordered CMP [Comprehensive Metabolic Panel] AM LABS Lab 03/16/25 04:00 Ordered CMP [Comprehensive Metabolic Panel] AM LABS Lab 03/17/25 04:00 Ordered CMP [Comprehensive Metabolic Panel] AM LABS Lab 03/18/25 04:00 Ordered Urine Culture Stat Lab 03/14/25 17:29 Received Pathology: Surgical [PTH] Routine Pth 03/14/25 16:27 Received CV. echo complete* [id number] Urgent Ultrasound 03/15/25 08:56 Taken Completed Studies During Hospitalization Category Date Time Status CT abdomen pelvis w con* [id number] Stat Cat Scan 03/14/25 03:03 Completed CXRP [XR chest 1V portable [id number]] Stat Exams 03/14/25 09:22 Completed Laboratory Last Values WBC 8.05 10^3/uL (3.29-11.43) 03/15/25 08:08 RBC 4.15 10^6/uL (3.85-5.65) 03/15/25 08:08 Hgb 12.30 g/dL (11.27-16.99) 03/15/25 08:08 Hct 37.1 % (37-53) 03/15/25 08:08 MCV 89.4 fl (82-101) 03/15/25 08:08 MCH 29.6 pg (27-33) 03/15/25 08:08 MCHC 33.2 g/dL (30-55) 03/15/25 08:08 RDW 13.1 % (12.1-15.1) 03/15/25 08:08 Plt Count 226 10^3/cmm (157-399) D 03/15/25 08:08 MPV 8.7 fL (7.4-10.4) 03/15/25 08:08 Neut % (Auto) 82.6 % 03/15/25 08:08 Lymph % (Auto) 10.7 % 03/15/25 08:08 [place] % (Auto) 6.1 % 03/15/25 08:08 Eos % (Auto) 0.0 % 03/15/25 08:08 Baso % (Auto) 0.2 % 03/15/25 08:08 Neut # (Auto) 6.65 10^3/uL (1.8-7.7) 03/15/25 08:08 Lymph # (Auto) 0.9 10^3/uL (0.8-4.8) 03/15/25 08:08 [place] # (Auto) 0.5 10^3/uL (0.2-0.9) 03/15/25 08:08 Eos # (Auto) 0.0 10^3/uL (0.0-0.8) 03/15/25 08:08 Baso # (Auto) 0.0 10^3/uL (0.0-0.1) 03/15/25 08:08 Nucleated RBC % (auto) 0 % 03/15/25 08:08 Total Counted 100 (0-100) 03/14/25 12:18 Atypical Lymphs % 0.0 % (0-5) 03/14/25 12:18 Absolute Neutrophils 8.8 10^3/cmm (1.4-6.5) H 03/14/25 12:18 Segmented Neutrophils 51 % 03/14/25 12:18 Band Neutrophils 24.0 % 03/14/25 12:18 Absolute Lymphocytes 0.9 10^3/cmm (1.2-3.4) L 03/14/25 12:18 Lymphocytes (Manual) 8 % 03/14/25 12:18 Monocytes (Manual) 12.0 % 03/14/25 12:18 Absolute Monocytes 1.4 10^3/cmm (0.1-0.6) H 03/14/25 12:18 Eosinophils (Manual) 0 % 03/14/25 12:18 Absolute Eosinophils 0.0 10^3/cmm (0.0-0.7) 03/14/25 12:18 Basophils (Manual) 1.0 % 03/14/25 12:18 Absolute Basophils 0.1 10^3/cmm (0.0-0.2) 03/14/25 12:18 Metamyelocytes 4.0 % 03/14/25 12:18 Nucleated RBCs # 0.0 /100WBC 03/15/25 08:08 Platelet Estimate Normal (Normal) 03/14/25 12:18 Giant Platelets Trace 03/14/25 12:18 Sodium 142 mmol/L (136-145) 03/15/25 08:08 Potassium 4.2 mmol/L (3.5-5.1) 03/15/25 08:08 Chloride 106 mmol/L (98-107) 03/15/25 08:08 Carbon Dioxide 22 mmol/L (22-29) 03/15/25 08:08 Anion Gap 18.2 (5-19) 03/15/25 08:08 BUN 19 mg/dL (8-23) 03/15/25 08:08 Creatinine 0.9 mg/dL (0.7-1.2) 03/15/25 08:08 GFR Calculation 85.5 mL/min (90-130) L 03/15/25 08:08 Glucose 154 mg/dL (65-115) H 03/15/25 08:08 Calculated Osmolality 299 mOsm/kg (285-295) H 03/15/25 08:08 Lactic Acid 2.4 mmol/L (0.5-2.2) H 03/14/25 03:00 Lactic Acid (Sepsis) 2.2 mmol/L (0.5-2.2) 03/14/25 05:39 Calcium 8.3 mg/dL (8.5-10.5) L 03/15/25 08:08 Magnesium 1.7 mg/dL (1.7-2.3) 03/15/25 08:08 Total Bilirubin 0.8 mg/dL (0.15-1.2) 03/15/25 08:08 AST 20 U/L (0-40) 03/15/25 08:08 ALT 16 U/L (0-41) 03/15/25 08:08 Alkaline Phosphatase 46 U/L (40-130) 03/15/25 08:08 Troponin T Baseline 14 ng/L (0-15) 03/14/25 05:39 Troponin T 120 Minute 25.89 ng/L (0-15) H 03/14/25 07:34 Delta Troponin T 11.89 ABS# (0-10) H* 03/14/25 07:34 Total Protein 5.5 g/dL (6.6-8.7) L 03/15/25 08:08 Albumin 3.1 g/dL (3.5-5.2) L 03/15/25 08:08 Globulin 2.4 g/dL (1.3-4.6) 03/15/25 08:08 Lipase 12 U/L (13-60) L 03/14/25 03:00 Urine Color Yellow (Yellow) 03/14/25 03:50 Urine Appearance Clear (CLEAR) 03/14/25 03:50 Urine pH 5.5 (5-7) 03/14/25 03:50 Ur Specific [place] 1.017 (1.005-1.030) 03/14/25 03:50 Urine Protein Negative (Negative) 03/14/25 03:50 Urine Glucose (UA) Negative (Normal) 03/14/25 03:50 Urine Ketones Negative (Negative) 03/14/25 03:50 Urine Blood Trace (Negative) A 03/14/25 03:50 Urine Nitrate Negative (Negative) 03/14/25 03:50 Urine Bilirubin Negative (Negative) 03/14/25 03:50 Urine Urobilinogen 0.2 mg/dL (Negative) 03/14/25 03:50 Ur Leukocyte Esterase Negative (Negative) 03/14/25 03:50 Urine RBC 0-2 /hpf (0-2) 03/14/25 03:50 Urine WBC 0-5 /hpf (0-5) 03/14/25 03:50 Ur Squamous Epith Cells 0-5 /hpf (0-5) 03/14/25 03:50 Amorphous Sediment Not Reportable 03/14/25 03:50 Urine Bacteria None seen /hpf (NONE) 03/14/25 03:50 Hyaline Casts 0.40 /lpf 03/14/25 03:50 Nasal MRSA (PCR) Not detected (Negative) 03/14/25 17:29 Radiology Impressions Abdomen/Pelvis CT 03/14/25 03:03 IMPRESSION: 1. Imaging findings of perforated acute sigmoid diverticulitis, with small amount of pneumoperitoneum, in small amount of fluid extending along the left paracolic gutter. 2. Nonspecific focus of decreased attenuation in the hepatic dome, which is too small to characterize. 3. Incompletely characterized left adrenal mass. Further evaluation with contrast enhanced abdominal MRI should be considered. COMMENTS: Consistent with the [employer]'s Incidental Findings Committee white paper (J Am Enrique Radiol 2018): Any incidental renal lesion less than 1 cm or classified as too small to characterize, or any incidental cystic renal lesion characterized as simple-appearing, is likely benign. No follow-up imaging is recommended for these lesions per consensus recommendations based on imaging criteria. ADDENDUM: 03/14/25 0515 THIS REPORT CONTAINS FINDINGS THAT MAY BE CRITICAL TO PATIENT CARE. The findings were verbally communicated via telephone conference with Maria Isabel Mireles at 5:13 AM CDT on 03/14/2025. The findings were acknowledged and understood. Chest X-Ray 03/14/25 09:22 Impression: Satisfactory placement of nasogastric tube. Recent Clincial Data Last Vital Signs Temp 98.9 F 03/15/25 16:00 Pulse 94 03/15/25 16:00 Resp 17 03/15/25 16:00 BP 117/83 03/15/25 16:00 Pulse Ox 94 03/15/25 16:00 O2 Del Method Nasal Cannula 03/15/25 16:00 O2 Flow Rate 4 03/15/25 16:00 Vital Signs Temp Pulse Resp BP Pulse Ox O2 Del Method O2 Del Method 03/15/25 16:00 98.9 F 94 17 117/83 94 Nasal Cannula 03/15/25 15:03 102 H 95 Nasal Cannula 03/15/25 15:00 103 H 17 118/85 03/15/25 14:00 101 H 25 H 131/89 90 Nasal Cannula 03/15/25 14:00 110 H 03/15/25 13:00 103 H 13 127/79 91 03/15/25 12:00 98.7 F 103 H 21 H 135/92 92 Nasal Cannula 03/15/25 11:00 109 H 38 H 144/95 94 Nasal Cannula 03/15/25 10:45 16 03/15/25 10:00 99 23 H 120/77 95 Nasal Cannula 03/15/25 09:00 104 H 24 H 126/87 03/15/25 08:00 98.3 F 105 H 29 H 120/81 94 Nasal Cannula 03/15/25 07:32 20 H 03/15/25 07:00 99 14 127/83 93 03/15/25 06:30 101 H 15 115/87 91 O2 Flow Rate O2 Flow Rate 03/15/25 16:00 4 03/15/25 15:03 3 03/15/25 15:00 03/15/25 14:00 4 03/15/25 14:00 03/15/25 13:00 03/15/25 12:00 4 03/15/25 11:00 4 03/15/25 10:45 03/15/25 10:00 4 03/15/25 09:00 03/15/25 08:00 4 03/15/25 07:32 03/15/25 07:00 03/15/25 06:30 Intake & Output/Weight 03/13/25 03/14/25 03/15/25 03/16/25 06:59 06:59 06:59 06:59 Intake Total 1150 / 1150 4800 / 4800 1175 / 1175 Output Total 2385 / 2385 900 / 900 Balance 1150 / 1150 2415 / 2415 275 / 275 Weight 92.986 kg 92.986 kg Vitals Last Vital Signs Temp 98.9 F 03/15/25 16:00 Pulse 94 03/15/25 16:00 Resp 17 03/15/25 16:00 BP 117/83 03/15/25 16:00 Pulse Ox 94 03/15/25 16:00 O2 Del Method Nasal Cannula 03/15/25 16:00 O2 Flow Rate 4 03/15/25 16:00 TS Medications Medications Cyclobenzaprine HCl (Cyclobenzaprine 10 Mg Tablet) 10 mg PO BID PRN PRN Reason: MUSCLE SPASMS Heparin Sodium (Porcine) (Heparin 5,000 Unit/Ml Inj 1 Ml) 5,000 unit SUBCUT Q12H [facility] Last Admin: 03/15/25 11:54 Dose: 5,000 unit Hydromorphone HCl (Hydromorphone 0.5 Mg/0.5 Ml Inj) 1 mg IVP Q4H PRN PRN Reason: severe pain Last Admin: 03/15/25 16:34 Dose: 1 mg Lactated Ringer's (Lactated Ringers) 1,000 mls @ 150 mls/hr IV .Q6H40M [facility] Last Admin: 03/15/25 13:34 Dose: 150 mls/hr Piperacillin Sod/Tazobactam (Sod 3.375 gm/ Sodium Chloride) 50 mls @ 12.5 mls/hr IV Q8H [facility]; Protocol Last Infusion: 03/15/25 15:54 Dose: Infused Dexmedetomidine/Sodium Chloride (Precedex) 400 mcg in 100 mls @ 0 mls/hr IV .Q0M [facility]; Protocol Vancomycin HCl (Vancocin) 1,500 mg in 300 mls @ 200 mls/hr IV Q12H [facility] Last Admin: 03/15/25 18:18 Dose: 200 mls/hr Ketorolac Tromethamine (Ketorolac 30 Mg/Ml Inj) 15 mg IVP Q6H [facility] Stop: 03/19/25 19:44 Last Admin: 03/15/25 13:33 Dose: 15 mg Morphine Sulfate (Morphine 4 Mg/Ml Sdv 1 Ml) 2 mg IVP Q2H PRN PRN Reason: SEVERE PAIN Last Admin: 03/15/25 10:45 Dose: 2 mg Ondansetron HCl (Ondansetron 2 Mg/Ml Sdv 2 Ml) 4 mg IVP Q6H [facility] Last Admin: 03/15/25 18:19 Dose: 4 mg Pantoprazole Sodium (Pantoprazole 40 Mg Sdv) 40 mg IVP Q12H [facility] Last Admin: 03/15/25 11:54 Dose: 40 mg Discontinued Medications Benzocaine/Butamben/Tetracaine HCl (Cetacaine [place] 5 Gm Can) 1 spray TOPICAL ONCE ONE Stop: 03/14/25 08:50 Last Admin: 03/14/25 09:00 Dose: 1 spray Dexamethasone (Dexamethasone 4 Mg/Ml Inj) Confirm Administered Dose 8 mg .ROUTE .STK-MED ONE Stop: 03/14/25 13:08 Ephedrine Sulfate (Ephedrine 50 Mg/Ml Inj) Confirm Administered Dose 50 mg .ROUTE .STK-MED ONE Stop: 03/14/25 13:07 Fentanyl (Fentanyl 50 Mcg/Ml Inj 2ml) Confirm Administered Dose 100 mcg .ROUTE .STK-MED ONE Stop: 03/14/25 13:07 Fentanyl (Fentanyl 50 Mcg/Ml Inj 2ml) Confirm Administered Dose 100 mcg .ROUTE .STK-MED ONE Stop: 03/14/25 16:35 Hydromorphone HCl (Hydromorphone 0.5 Mg/0.5 Ml Inj) 2 mg IVP ONCE ONE Stop: 03/14/25 03:04 Last Admin: 03/14/25 03:15 Dose: 2 mg Hydromorphone HCl (Hydromorphone 0.5 Mg/0.5 Ml Inj) 1 mg IVP ONCE PRN PRN Reason: severe pain Last Admin: 03/14/25 06:05 Dose: 1 mg Hydromorphone HCl (Hydromorphone 0.5 Mg/0.5 Ml Inj) 1 mg IVP ONCE ONE Stop: 03/14/25 06:03 Last Admin: 03/14/25 06:05 Dose: 1 mg Hydromorphone HCl (Hydromorphone 0.5 Mg/0.5 Ml Inj) 1 mg IVP ONCE ONE Stop: 03/14/25 12:47 Last Admin: 03/14/25 13:02 Dose: 1 mg Hydromorphone HCl (Hydromorphone 1 Mg/Ml Inj 1ml) Confirm Administered Dose 1 mg .ROUTE .STK-MED ONE Stop: 03/14/25 14:32 Lactated Ringer's (Lactated Ringers) 1,000 mls @ 999 mls/hr IV .Q1H1M ONE Stop: 03/14/25 04:51 Last Infusion: 03/14/25 05:16 Dose: Infused Acetaminophen (Acetaminophen) 1,000 mg in 100 mls @ 400 mls/hr IV ONCE ONE Stop: 03/14/25 04:58 Last Infusion: 03/14/25 05:04 Dose: Infused Piperacillin Sod/Tazobactam (Sod 4.5 gm/ Sodium Chloride) 50 mls @ 100 mls/hr IV ONCE ONE; Protocol Stop: 03/14/25 06:01 Last Infusion: 03/14/25 06:28 Dose: Infused Lactated Ringer's (Lactated Ringers) 1,000 mls @ 999 mls/hr IV .Q1H1M ONE Stop: 03/14/25 06:32 Last Infusion: 03/14/25 19:28 Dose: Infused Lactated Ringer's (Lactated Ringers) 1,000 mls @ 200 mls/hr IV .Q5H ONE Stop: 03/14/25 11:54 Last Infusion: 03/14/25 19:27 Dose: Infused Acetaminophen (Acetaminophen) 1,000 mg in 100 mls @ 400 mls/hr IV Q8H [facility] Stop: 03/15/25 11:59 Acetaminophen (Acetaminophen) 1,000 mg in 100 mls @ 400 mls/hr IV PRN ONE Stop: 03/14/25 10:01 Last Admin: 03/14/25 11:30 Dose: Not Given Albumin Human (Albumin) Confirm Administered Dose 12.5 gm in 250 mls @ as directed .ROUTE .STK-MED ONE Stop: 03/14/25 14:06 Vancomycin HCl (Vancocin) 2,000 mg in 400 mls @ 200 mls/hr IV ONCE ONE Stop: 03/14/25 16:44 Last Admin: 03/14/25 23:25 Dose: Not Given Vancomycin HCl (Vancocin) 2,000 mg in 400 mls @ 200 mls/hr IV ONCE ONE Stop: 03/14/25 19:59 Last Infusion: 03/14/25 23:25 Dose: Infused Ketamine HCl (Ketamine 50 Mg/Ml Syr 1 Ml) Confirm Administered Dose 50 mg .ROUTE .STK-MED ONE Stop: 03/14/25 13:38 Metoprolol Tartrate (Metoprolol Tartrate 1 Mg/1 Ml Sdv 5 Ml) 2.5 mg IVP ONCE ONE Stop: 03/14/25 08:58 Last Admin: 03/14/25 09:52 Dose: 2.5 mg Morphine Sulfate (Morphine 4 Mg/Ml Sdv 1 Ml) 2 mg IVP Q4H PRN PRN Reason: SEVERE PAIN Last Admin: 03/14/25 09:52 Dose: 2 mg Morphine Sulfate (Morphine 4 Mg/Ml Sdv 1 Ml) Confirm Administered Dose 4 mg .ROUTE .STK-MED ONE Stop: 03/14/25 11:12 Last Admin: 03/14/25 12:35 Dose: Not Given Ondansetron HCl (Ondansetron 2 Mg/Ml Sdv 2 Ml) 4 mg IVP ONCE ONE Stop: 03/14/25 03:04 Last Admin: 03/14/25 03:15 Dose: 4 mg Ondansetron HCl (Ondansetron 2 Mg/Ml Sdv 2 Ml) Confirm Administered Dose 4 mg .ROUTE .STK-MED ONE Stop: 03/14/25 13:08 Oxycodone/Acetaminophen (Oxycodone-Apap 10-325 Mg Tablet) 1 tab PO Q4H PRN PRN Reason: PAIN Phenylephrine HCl (Phenylephrine 10 Mg/Ml Sdv 1 Ml) Confirm Administered Dose 10 mg .ROUTE .STK-MED ONE Stop: 03/14/25 13:09 Propofol (Propofol 10 Mg/Ml Sdv 20 Ml) Confirm Administered Dose 200 mg .ROUTE .STK-MED ONE Stop: 03/14/25 13:07 Rocuronium Novelty (Rocuronium 10 Mg/Ml Inj 5ml) Confirm Administered Dose 50 mg .ROUTE .STK-MED ONE Stop: 03/14/25 13:08 Succinylcholine Chloride (Succinylcholine 20 Mg/Ml Sdv 10ml) Confirm Administered Dose 200 mg .ROUTE .STK-MED ONE Stop: 03/14/25 13:08 Sugammadex Sodium (Sugammadex 200 Mg/2 Ml Sdv) Confirm Administered Dose 200 mg .ROUTE .STK-MED ONE Stop: 03/14/25 16:52 Vecuronium Novelty (Vecuronium 10 Mg Sdv) Confirm Administered Dose 10 mg .ROUTE .STK-MED ONE Stop: 03/14/25 14:34 Allergies No Known Allergies Allergy (Verified 03/12/25 09:00) Home Medications cyclobenzaprine 10 mg tablet 10 mg PO BID PRN muscle spasms 03/08/25 [History Confirmed 03/14/25] esomeprazole magnesium 20 mg capsule,delayed release 20 mg PO DAILY 03/08/25 [History Confirmed 03/14/25] oxycodone-acetaminophen 10 mg-325 mg tablet 1 tab PO Q4H PRN pain 7 days #42 tabs 03/12/25 [Rx Confirmed 03/14/25] diphenhydramine 25 mg-acetaminophen 500 mg tablet (Tylenol PM Extra Strength) 1 tab PO Q4H PRN Sleep 03/14/25 [History Confirmed 03/14/25] docusate sodium 100 mg capsule 100 mg PO BID 03/14/25 [History Confirmed 03/14/25] Discharge Plan Discharge Patient Disposition: Xfer Other Condition: Stable Prescriptions: Continued cyclobenzaprine 10 mg tablet 10 mg PO BID PRN (Reason: muscle spasms) docusate sodium 100 mg capsule 100 mg PO BID diphenhydramine-acetaminophen [Tylenol PM Extra Strength] 25-500 mg Tablet 1 tab PO Q4H PRN (Reason: Sleep) Rx Instructions: administer while awake Discontinued esomeprazole magnesium 20 mg capsule,delayed release(DR/EC) 20 mg PO DAILY oxycodone-acetaminophen 10-325 mg tablet 1 tab PO Q4H PRN (Reason: pain) 7 Days Qty: 42 0RF Referrals: Alon Salazar MD [Primary Care Provider, Family Practice] Patient Instructions: Acute Wound Care (DC), Opioid Safety, Post Anesthesia Care, Patient Portal & Gareth Instructions Transfer Attestations Time Spent in Transfer Care: greater than 30 min Specific Discharge Activities: educating patient, educating and/or supporting family/caregiver, discussing with pcp/other providers, discussing with patient case manager/social workers/dc planners, documenting/other paperwork and evaluating patient/reviewing data Status at Transfer: Cognitive status at transfer: cognitively intact; Behavioral status at transfer: cooperative; Functional status at transfer: other assisted ambulation; Overall status at transfer: patient is progressing back to baseline Quality Metrics Clinical Quality Measures [ No reported AMI, CVA or VTE this stay] Coding Level of Care Code Acute Code for Chg Fwd Diagnoses Sepsis A41.9 Sepsis acute organ dysfunction status: without acute organ dysfunction Sepsis type: sepsis due to unspecified organism Perforated bowel K63.1 Spinal stenosis of cervical region with radiculopathy M48.02; M54.12
== END 2025-03-15 22:34 | disposition home health service (06) | DRG 854 ==
LOC: ER 06:57 → ICU 07:39
PROVIDERS: Specialist; Admitting Provider Internal Medicine; Emergency Provider Emergency Medicine; PCP Family Medicine; Visit Provider Student in an Organized Health Care Education/Training Program
PROC: 0DTN0ZZ Resection of Sigmoid Colon, Open Approach (ICD-10-PCS; CPT 49000; principal; 2025-03-14 13:30)
PROC: 0DTN0ZZ Resection of Sigmoid Colon, Open Approach (ICD-10-PCS; CPT 44320; 2025-03-14 13:30)
PROC: 0DTN0ZZ Resection of Sigmoid Colon, Open Approach (ICD-10-PCS; CPT 44140; 2025-03-14 13:30)
DX: A41.9 Sepsis, unspecified organism (principal); K57.20 Diverticulitis of large intestine with perforation and abscess without bleeding; R00.0 Tachycardia, unspecified; M48.02 Spinal stenosis, cervical region; M54.12 Radiculopathy, cervical region; I10 Essential (primary) hypertension; Z79.899 Other long term (current) drug therapy
CPT/HCPCS: 36415; 51702; 71045; 74177; 80053; 81001; 83605; 83690; 83735; 84484; 85007; 85025; 87040; 87070; 87075; 87077; 87086; 87150; 87186; 87205; 88309; 93005; 93306; 96365; 96372; 96375; 96376; 97163; 97167; 97530; 99285; J0131; J0330; J1100; J1171; J1644; J1885; J2270; J2371; J2405; J2470; J2543; J2704; J3010; J3372; J3373; J3490; J7120; J9999; P9045

== ENCOUNTER 2025-04-02 00:35 | Inpatient (IN) | payer BC, SELFPAY ==
[2025-04-02] VITALS (45 sets, daily range): BP systolic 106–131; BP diastolic 66–86; PULSE 62–92; RESP 11–38; TEMP 36.3–36.7; O2SAT 93–98; BMI 27.1
--- OUTSIDE RECORDS SUMMARY | 2025-04-02 00:41 | XMS_ITS | Clinical Summary ---
Author Organization [facility] Address [address] [place] [address] Phone Care Team Providers Care Bank Credit Card Collection Clerk Name Role Phone Alon Salazar MD Primary Care Provider [phone] Allergies Active Allergy Reactions Criticality Noted Date Comments Gabapentin Other (See Comments) 03/16/2025 Aggression Medications cyclobenzaprin e (FLEXERIL) 10 mg tablet Take 10 mg by mouth daily at bedtime. Active esomeprazole (NexIUM) 20 mg Capsule, Delayed Release(E.C.) Take 20 mg by mouth nightly as needed for Other (See Comment). Active diphenhydrAMIN E-acetaminophe n (acetaminophen PM Extra Str) 25-500 mg Tablet Take 2 Tablets by mouth nightly as needed for Insomnia. Active polyethylene glycol (MIRALAX) 17 gram Powder in Packet Take 1 Packet (17 Grams) by mouth 1 time daily as needed for Constipatio n. 5 Active oxyCODONE (ROXICODONE) 10 mg tabletIndicati ons:Diverticul itis of colon with perforation,In tra-abdominal abscess (CMS/HCC) Take 1 Tablet (10 mg) by mouth every 8 hours as needed for Pain. Max Daily Amount: 30 mg 15 Tablet 03/25/2025 1:05 PM ACIDIZER 5 Active acetaminophen (TYLENOL) 325 mg tablet Take 2 Tablets (650 mg) by mouth every 6 hours as needed for Other (See Comment) or Pain (See admin instruction s). 5 Active methocarbamoL (ROBAXIN) 500 mg tablet Take 1 Tablet (500 mg) by mouth every 6 hours as needed for Spasm. 20 Tablet 03/25/2025 1:05 PM ACIDIZER Active oxyCODONE (ROXICODONE) 10 mg tabletIndicati ons:Post Surgery Take 10 mg by mouth every 4 hours as needed for Pain, Moderate. 03/25/20 Discontinued Active Problems Problem Noted Date Diagnosed Date Pleural effusion 03/22/2025 Intra-abdominal abscess 03/22/2025 Adrenal nodule 03/22/2025 Leukocytosis (leucocytosis) 03/18/2025 Hypokalemia 03/17/2025 Ileus, postoperative 03/17/2025 Diverticulitis of colon with perforation 025 Status post Vanessa procedure 03/16/2025 History of creation of ostomy 03/16/2025 Encounters Date Type Department Care Team Description 03/28/2025 Orders Only [facility] HIM [address] [place] [address] Provider, Abstract 03/21/2025 External Device Data [facility] ABSTRACTION Provider, Abstract 03/20/2025 External Device Data [facility]STRACTION Provider, Abstract 03/20/2025 External Device Data [facility]STRACTION Provider, Abstract 03/20/2025 External Device Data [facility] ABSTRACTION Provider, Abstract 03/16/2025 12:20 AM CDT - 03/25/2025 3:05 PM ACIDIZER Hospital Encounter [facility] 3B Surgical [address] [place] [address] Linsey Fernando MD Diverticulitis of colon with perforation Discharge Disposition: Home Health Care [facility] 03/16/2025 Travel from Last 3 Months Social History Tobacco Use Types Packs/Day Years Used Date Smoking Tobacco: Former Cigarettes 0.1 1 1 986 - 1987 Passive Smoke Exposure: Past Food Insecurity Answer Date Recorded Do you find you are eating l ess than you should because you can t pay for food? No 03/16/2025 Transportation Needs Answer Date Record ed Have you gone without health care because you didn t have a way to get there? Or worry about transportation for future doctor visits, product picker medication, etc.? No 2024 Housing Stability Answer Date Recorded Do you worry you won t have a steady place to sleep or struggle to pay rent or mortgage? No 03/16/2025 Utility Needs Answer Date Recorded Do you have difficulty payin g for utility costs (electric, water or gas bills)? No 03/16/2025 Medication Needs Answer Date Recorded Have you skipped taking medi cation due to cost or worry you can t afford new medications? No 03/16/2025 Feeling Safe Answer Date Recorded Are you in a relationship wi th someone who hurts you emotionally and/or physically? No 03/16/2025 Food Insecurity Answer Date Recorded Patient needs follow up regardin 03/16/2025 Transportation Needs Answer Date Record ed Patient needs follow up regardin 03/16/2025 Utility Needs Answer Date Recorded Patient needs follow up regardin 03/16/2025 Sex and Gender Information Value Date Recorded Sex Assigned at Not on file Legal Sex Male 8:01 AM ACIDIZER Gender Identity Not on file Sexual Orientation Not on file Last Filed Vital Signs Vital Sign Reading Time Taken Comments Blood Pressure 123/77 03/25/2025 7:59 AM ACIDIZER Pulse 81 03/25/2025 7:59 AM ACIDIZER Temperature 36.1 C (97 F) 03/25/2025 7:59 AM ACIDIZER Respiratory Rate 20 03/25/2025 7:59 AM ACIDIZER Oxygen Saturation 94% 03/25/2025 7:59 AM ACIDIZER Inhaled Oxygen Concentration - - Weight 94.5 kg (208 lb 5.4 oz) 03/22/2025 4:22 A M CDT Height 177.8 cm (5' 10 ) 03/16/2025 2:52 AM CDT Body Mass Index 29.89 03/16/2025 2:52 AM CDT Plan of Treatment Upcoming Encounters Date Type Department Care Team (Late st Contact Info) Description 05/01/2025 9:00 AM ACIDIZER Office Visit [facility] Urology [address] [place] [address] Erick Reina NP [address] [place] [id number] Health Maintenance Due Date Last Done Comments Pre-Diabetes and Diabetes Screening 1962 DTAP/TDAP/TD VACCINES (4 - Tdap) 1973 01/03/1968, 11/08/1967, 07/08/1967 COLORECTAL SCREENING 12/01/2007 Colorectal Cancer Screening 12/01/2007 FIT-DNA Q 3 years 12/01/2007 FIT/FOBT Q 1 year 12/01/2007 Flex Sig/CT Colonography Q 5 years 12/01/2007 ZOSTER VACCINE (1 of 2) 2012 INFLUENZA VACCINE (#1) 2024 RSV VACCINE (60+ or ) (1 - 1-dose 75+ series) 2037 Procedures Procedure Name Priority Date/Time Associated Diagnosis Comments BASIC METABOLIC PANEL Routine 03/25/2025 4:53 AM ACIDIZER CBC WITH DIFFERENTIAL Routine 03/25/2025 4:53 AM ACIDIZER PHOSPHORUS Routine 03/24/2025 6:36 AM CDT MAGNESIUM LEVEL Routine 03/24/2025 6:36 AM CDT BASIC METABOLIC PANEL Routine 03/24/2025 6:36 AM CDT CBC WITH DIFFERENTIAL Routine 03/24/2025 6:36 AM CDT XR CHEST PA OR AP 1 VW Routine 03/24/2025 5:29 AM CDT RENAL FUNCTION PANEL Routine 03/23/2025 5:18 AM CDT CBC WITHOUT DIFFERENTIAL Routine 03/23/2025 5:18 AM CDT XR CHEST PA OR AP 1 VW Pending Discharge 03/23/2025 4:43 AM CDT XR CHEST PA OR AP 1 VW Stat 03/22/2025 3:[address] GUIDE PERCUT DRAIN W CATH Pending Discharge 03/22/2025 1:37 PM CDT ANAEROBIC/AEROBIC CULTURE W GRAM STAIN Routine 03/22/2025 12:57 PM CDT US ASPIRATION PLEURA LEFT Pending Discharge 03/22/2025 12:20 PM CDT PROTIME-INR Stat 03/22/2025 8:[address] ABDOMEN PELVIS W CONTRAST Pending Discharge 03/21/2025 3:36 PM CDT CBC WITH DIFFERENTIAL Routine 03/21/2025 4:10 AM CDT US LOW EXT PATRICK DUPLEX COMP BILAT Routine 03/20/2025 2:03 PM CDT PT EVAL AND TREAT Routine 03/20/2025 10: 40 AM CDT CBC WITH DIFFERENTIAL Routine 03/20/2025 3:25 AM CDT PHOSPHORUS Routine 03/19/2025 4:08 AM CDT MAGNESIUM LEVEL Routine 03/19/2025 4:08 AM CDT BASIC METABOLIC PANEL Routine 03/19/2025 4:08 AM CDT CBC WITH DIFFERENTIAL Routine 03/19/2025 4:08 AM CDT PHOSPHORUS Routine 03/18/2025 1:11 AM CDT MAGNESIUM LEVEL Routine 03/18/2025 1:11 AM CDT BASIC METABOLIC PANEL Routine 03/18/2025 1:11 AM CDT CBC WITH DIFFERENTIAL Routine 03/18/2025 1:11 AM CDT BASIC METABOLIC PANEL Routine 03/17/2025 5:48 AM CDT CBC WITH DIFFERENTIAL Routine 03/16/2025 9:55 AM CDT CBC WITH DIFFERENTIAL Routine 03/16/2025 4:34 AM CDT COMPREHENSIVE METABOLIC PANEL Routine 03/16/2025 4:34 AM CDT OT EVAL AND TREAT Routine 03/16/2025 1:4 1 AM CDT PT EVAL AND TREAT Routine 03/16/2025 1:2 1 AM CDT COMPREHENSIVE METABOLIC PANEL Routine 03/15/2025 3:33 PM CDT COMPREHENSIVE METABOLIC PANEL Routine 03/14/2025 3:38 PM CDT from Last 3 Months Results * (ABNORMAL) CBC WITH DIFFERENTIAL (03/25/2025 4:53 AM ACIDIZER) Only the most recent of8 resultswithin the time period is included. WBC 12.0(H) 4.8 - 10.8 K/uL 03/25/2025 5:34 AM [facility] RBC 3.99(L) 4.60 - 6.20 M/uL 03/25/2025 5:34 AM [facility] HEMOGLOBIN 11.6(L) 14.0 - 18.0 g/dL 03/25/2025 5:34 AM [facility] HEMATOCRIT 34.8(L) 41.0 - 53.0 % 03/25/2025 5:34 AM [facility] MCV 87.2 84.0 - 103.0 fL 03/25/2025 5:34 AM [facility] MCH 29.1 27.0 - 34.0 pg 03/25/2025 5:34 AM [facility] MCHC 33.3 30.0 - 35.0 g/dL 03/25/2025 5:34 AM [facility] PLATELETS 557(H) 140 - 440 K/uL 03/25/2025 5:34 AM [facility] MPV 8.6(L) 8.9 - 12.8 fL 03/25/2025 5:34 AM [facility] RDW 12.8 11.0 - 14.5 % 03/25/2025 5:34 AM [facility] RDW-STDEV 40.5 37.0 - 54.0 fL 03/25/2025 5:34 AM [facility] NEUTROPHILS 77(H) 42 - 75 % 03/25/2025 5:34 AM [facility] LYMPHOCYTES 14(L) 24 - 44 % 03/25/2025 5:34 AM [facility] MONOCYTES 7 2 - 10 % 03/25/2025 5:34 AM [facility] EOSINOPHILS 2 0 - 7 % 03/25/2025 5:34 AM [facility] BASOPHILS 0 0 - 1 % 03/25/2025 5:34 AM [facility] IMMATURE GRANULOCYTES 1 0 - 2 % 03/25/2025 5:34 AM [facility] NEUTROPHIL ABSOLUTE 9.20(H) 2.00 - 8.00 K/uL 03/25/2025 5:34 AM [facility] LYMPHOCYTE ABSOLUTE 1.62 1.20 - 4.00 K/uL 03/25/2025 5:34 AM [facility] MONOCYTE ABSOLUTE 0.89(H) 0.10 - 0.60 K/uL 03/25/2025 5:34 AM [facility] EOSINOPHIL ABSOLUTE 0.19 0.00 - 0.70 K/uL 03/25/2025 5:34 AM [facility] BASOPHILS ABSOLUTE 0.03 0.00 - 0.20 K/uL 03/25/2025 5:34 AM [facility] IMMATURE GRANULOCYTES ABSOLUTE 0.07 0.00 - 0.10 K/uL 03/25/2025 5:34 AM [facility] SMEAR REVIEWED: NA - Not Applicable 03/25/2025 5:34 AM [facility] Blood Venipuncture / Unknown 03/25/2025 4:53 AM ACIDIZER 03/25/2025 5:26 AM [facility] Ever Aguirre PA-C HEMATOLOGY ORDERABLES Final Resu lt [facility] ANAMARIA # [id number] [facility] [address] [place] [address] * (ABNORMAL) BASIC METABOLIC PANEL (03/25/2025 4:53 AM ACIDIZER) Only the most recent of5 resultswithin the time period is included. SODIUM 136 136 - 145 mmol/L 03/25/2025 5:57 AM [facility] POTASSIUM 4.3 3.5 - 5.1 mmol/L 03/25/2025 5:57 AM [facility] CHLORIDE 103 98 - 107 mmol/L 03/25/2025 5:57 AM [facility] CO2 24 22 - 29 mmol/L 03/25/2025 5:57 AM [facility] CALCIUM 8.6(L) 8.8 - 10.2 mg/dL 03/25/2025 5:57 AM [facility] BUN 9 8 - 23 mg/dL 03/25/2025 5:57 AM [facility] CREATININE 0.77 0.67 - 1.17 mg/dL 03/25/2025 5:57 AM [facility] GLUCOSE 111(H) 74 - 99 mg/dL 03/25/2025 5:57 AM [facility] GFR >60 >=60 mL/min/1.7 3 sq meter 03/25/2025 5:57 AM [facility] Comment:eGFR calculated with 2020 CKD-EPI equation. Vegetarian diet, extremely high or low muscle mass, and may affect results. Cystatin C with Glomerular Filtration Rate is a suitable alternative for these patients. ANION GAP 9 9 - 20 mmol/L 03/25/2025 5:57 AM [facility] Blood Venipuncture / Unknown 03/25/2025 4:53 AM ACIDIZER 03/25/2025 5:26 AM ACIDIZER Ever Aguirre PA-C CHEMISTRY ORDERABLES Final Resul t Performing Organization Address [facility]/ZIP Co de Phone Number [facility] CLIA # [id number] [address] [place], [place] [address] * PHOSPHORUS (03/24/2025 6:36 AM CDT) Only the most recent of3 resultswithin the time period is included. PHOSPHORUS 2.9 2.5 - 4.5 mg/dL 03/24/2025 7:55 AM CDT [facility] Blood Venipuncture / Unknown 03/24/2025 6:36 AM CDT 03/24/2025 7:09 AM CDT Latricia Dill NP CHEMISTRY ORDERABLES F inal Result Performing Organization Address [facility] de Phone Number [facility] CLIA # [id number] [id number] [place], [place] [address] * MAGNESIUM LEVEL (03/24/2025 6:36 AM CDT) Only the most recent of3 resultswithin the time period is included. MAGNESIUM 2.2 1.6 - 2.4 mg/dL 03/24/2025 7:55 AM CDT [facility] Blood Venipuncture / Unknown 03/24/2025 6:36 AM CDT 03/24/2025 7:09 AM CDT Latricia Dill NP CHEMISTRY ORDERABLES F inal Result Performing Organization Address City/[facility]/ZIP Co de Phone Number [facility] CLIA # [id number] [address] [place], [place] [address] * XR CHEST PA OR AP 1 VW (03/24/2025 5:29 AM CDT) Only the most recent of3 resultswithin the time period is included. Anatomical Region Laterality Modality Chest Computed Radiogr aphy 03/24/2025 5:29 AM CDT Impressions 03/24/2025 10:54 AM CDT IMPRESSION: Vascular congestion with basilar atelectasis and trace pleural effusions. Narrative 03/24/2025 10:54 AM CDT Exam: XR CHEST PA OR AP 1 VW Date/Time of Exam: 03/24/2025 5:29 AM Reason For Exam: Pleural Effusion. Diagnosis: Bladder outlet obstruction. Findings: The cardiac silhouette is enlarged. Vascular congestion is noted centrally. The lung volumes are diminished with basilar atelectasis and small pleural effusions. No pneumothorax. Surgical changes are present in the cervical spine. Procedure Note Gabino Mora MD - 03/24/2025 Exam: XR CHEST PA OR AP 1 VW Date/Time of Exam: 03/24/2025 5:29 AM Reason For Exam: Pleural Effusion. Diagnosis: Bladder outlet obstruction. Findings: The cardiac silhouette is enlarged. Vascular congestion is noted centrally. The lung volumes are diminished with basilar atelectasis and small pleural effusions. No pneumothorax. Surgical changes are present in the cervical spine. IMPRESSION: Vascular congestion with basilar atelectasis and trace pleural effusions. Latricia Dill NP DIAGNOSTIC IMAGING ORD ERABLES Final Result * (ABNORMAL) CBC WITHOUT DIFFERENTIAL (03/23/2025 5:18 AM CDT) Pathologist [facility] WBC 13.6(H) 4.8 - 10.8 K/uL 03/23/2025 5:37 AM CDT [facility] RBC 4.16(L) 4.60 - 6.20 M/uL 03/23/2025 5:37 AM CDT [facility] HEMOGLOBIN 12.1(L) 14.0 - 18.0 g/dL 03/23/2025 5:37 AM T [facility] HEMATOCRIT 36.7(L) 41.0 - 53.0 % 03/23/2025 5:37 AM CDT [facility] MCV 88.2 84.0 - 103.0 fL 03/23/2025 5:37 AM CDT [facility] MCH 29.1 27.0 - 34.0 pg 03/23/2025 5:37 AM CDT [facility] MCHC 33.0 30.0 - 35.0 g/dL 03/23/2025 5:37 AM CDT [facility] PLATELETS 435 140 - 440 K/uL 03/23/2025 5:37 AM CDT [facility] MPV 8.7(L) 8.9 - 12.8 fL 03/23/2025 5:37 AM CDT [facility] RDW 13.1 11.0 - 14.5 % 03/23/2025 5:37 AM CDT [facility] RDW-STDEV 42.2 37.0 - 54.0 fL 03/23/2025 5:37 AM CDT [facility] Blood Venipuncture / Unknown 03/23/2025 5:18 AM CDT 03/23/2025 5:26 AM CDT us Yenni Aguirre [employer] HEMATOLOGY ORDERABLES Final Re sult [facility] CLIA # [id number] [address] [place] [address] * (ABNORMAL) RENAL FUNCTION PANEL (03/23/2025 5:18 AM CDT) SODIUM 134(L) 136 - 145 mmol/L 03/23/2025 6:01 AM CDT [facility] POTASSIUM 4.4 3.5 - 5.1 mmol/L 03/23/2025 6:01 AM CDT [facility] CHLORIDE 101 98 - 107 mmol/L 03/23/2025 6:01 AM CDT [facility] CO2 22 22 - 29 mmol/L 03/23/2025 6:01 AM [facility] CALCIUM 8.3(L) 8.8 - 10.2 mg/dL 03/23/2025 6:01 AM T [facility] BUN 11 8 - 23 mg/dL 03/23/2025 6:01 AM [facility] CREATININE 0.76 0.67 - 1.17 mg/dL 03/23/2025 6:01 AM T [facility] GLUCOSE 108(H) 74 - 99 mg/dL 03/23/2025 6:01 AM [facility] ALBUMIN 2.9(L) 3.5 - 5.2 g/dL 03/23/2025 6:01 AM [facility] PHOSPHORUS 3.1 2.5 - 4.5 mg/dL 03/23/2025 6:01 AM [facility] GFR >60 >=60 mL/min/1.7 3 sq meter 03/23/2025 6:01 AM T [facility] Comment:eGFR calculated with 2020 CKD-EPI equation. Vegetarian diet, extremely high or low muscle mass, and may affect results. Cystatin C with Glomerular Filtration Rate is a suitable alternative for these patients. ANION GAP 11 9 - 20 mmol/L 03/23/2025 6:01 AM T [facility] Blood Venipuncture / Unknown 03/23/2025 5:18 AM CDT 03/23/2025 5:27 AM CDT us Yenni Aguirre NP CHEMISTRY ORDERABLES Final Res ult [facility] CLIA # [id number] [address] [place] [address] * CT GUIDE PERCUT DRAIN W CATH (03/22/2025 1:37 PM CDT) Anatomical Region Laterality Modality Computed Tomogra phy 03/22/2025 12:4 3 PM CDT Impressions 03/22/2025 1:52 PM CDT IMPRESSION: CT-guided aspiration of a anterior left peritoneal fluid collection. I, Dr. Pravin Alvares, certify that I was present for the entire procedure. Narrative 03/22/2025 1:52 PM CDT PROCEDURES: CT guided peritoneal fluid collection aspiration Moderate conscious sedation. HISTORY: Peritoneal fluid collection OPERATORS: Dr. Pravin Alvares HAND HYGIENE: Soap and water. [employer]. CONSENT: The procedures as well as their risks, benefits, and alternatives were discussed in detail with the patient, and the patient given the opportunity to ask any questions. Written informed consent was then obtained. PROCEDURE DETAILS: Patient was placed on the CT table and limited noncontrast CT was performed of the abdomen to assess the trajectory for the percutaneous drain placement. A amber on the skin was made using the noncontrast CT as a guide. Preprocedural timeout was performed. Versed and fentanyl were given IV by a radiology nurse who is a trained independent observer dedicated to patient monitoring during moderate sedation under my supervision. Local anesthetic with 2% lidocaine was infiltrated into the skin along the planned trajectory. Next, a 5 Bruneian Yueh needle/catheter combination was advanced using CT fluoroscopy as a guide to the target left anterior peritoneal fluid collection and the needle was removed with the catheter remaining in place. A small amount of fluid was aspirated from the fluid collection which was serosanguineous. The fluid collection was small and deemed too small for drain placement. The Yueh catheter was removed. A Band-Aid was placed over the access site. The patient tolerated the procedure well with no immediate complications and was in stable condition at the completion of the procedure. ESTIMATED BLOOD LOSS: 0 mL Procedure Note Pravin Alvares MD - 03/22/2025 PROCEDURES: CT guided peritoneal fluid collection aspiration Moderate conscious sedation. HISTORY: Peritoneal fluid collection OPERATORS: Dr. Pravin Alvares HAND HYGIENE: Soap and water. [employer]. CONSENT: The procedures as well as their risks, benefits, and alternatives were discussed in detail with the patient, and the patient given the opportunity to ask any questions. Written informed consent was then obtained. PROCEDURE DETAILS: Patient was placed on the CT table and limited noncontrast CT was performed of the abdomen to assess the trajectory for the percutaneous drain placement. A amber on the skin was made using the noncontrast CT as a guide. Preprocedural timeout was performed. Versed and fentanyl were given IV by a radiology nurse who is a trained independent observer dedicated to patient monitoring during moderate sedation under my supervision. Local anesthetic with 2% lidocaine was infiltrated into the skin along the planned trajectory. Next, a 5 Bruneian Yueh needle/catheter combination was advanced using CT fluoroscopy as a guide to the target left anterior peritoneal fluid collection and the needle was removed with the catheter remaining in place. A small amount of fluid was aspirated from the fluid collection which was serosanguineous. The fluid collection was small and deemed too small for drain placement. The Yueh catheter was removed. A Band-Aid was placed over the access site. The patient tolerated the procedure well with no immediate complications and was in stable condition at the completion of the procedure. ESTIMATED BLOOD LOSS: 0 mL IMPRESSION: CT-guided aspiration of a anterior left peritoneal fluid collection. I, Dr. Pravin Alvares, certify that I was present for the entire procedure. Saleem Conteh NP CT ORDERABLES Final Result * ANAEROBIC/AEROBIC CULTURE W GRAM STAIN (03/22/2025 12:57 PM CDT) CULTURE No aerobic or anaerobic growth 03/25/2025 8:29 AM [facility] GRAM STAIN No organisms observed 03/25/2025 8:29 AM [facility] GRAM STAIN No Polymorphonuclear WBC 03/25/2025 8:29 AM [facility] Abscess ENTIRE SEROUS MEMBRANE OF PERITONEUM / Unknown Collection / Unknown 03/22/2025 12:57 PM CDT 03/22/2025 1:28 PM CDT Pravin Alvares MD MICROBIOLOGY - GENERAL ORDERABLE S Final Result [facility] CLIA # [id number] [address] [address] [place] [address] * US ASPIRATION PLEURA LEFT (03/22/2025 12:20 PM CDT) Anatomical Region Laterality Modality Chest Ultrasound 03/22/2025 12:2 1 PM CDT Impressions 03/22/2025 1:57 PM CDT IMPRESSION: Please see below. Exam: US ASPIRATION PLEURA LEFT Date/Time of Exam: 03/22/2025 12:20 PM Reason For Exam: Pleural Effusion. This procedure was performed and preliminary findings dictated by Real Vega PA-C. Supervision and final interpretation by Dr. Alvares. CONSENT: Risks, benefits, and alternatives of the procedure were discussed with the patient. Specific risks of thoracentesis to include, but not limited to: bleeding, infection, pain, pneumothorax which might require placement of a chest tube or surgery to correct, damage to adjacent tissue/organs, and . The procedure may need to be repeated if the fluid sample obtained is non-diagnostic. Written informed consent was obtained from the patient. Procedure in Detail: A time out was performed to verify the patient and procedure. The patient was placed in a sitting position on the edge of the exam table, and ultrasound was utilized to evaluate the left thorax for largest pocket of free fluid. The area was marked, prepped, and draped in the usual sterile fashion. All elements of maximal sterile barrier technique, including hand hygiene and cutaneous antisepsis with an antisepsis agent, were used. Local anesthesia was achieved with 1% lidocaine overlying the proposed needle course. A 10 cm 5 Bruneian Yueh centesis catheter was inserted and approximately 520 ml of a cloudy, flower pleural fluid was then removed via suction. The centesis catheter was removed in its entirety, the chlorhexidine cleansed from the skin, and a sterile dressing placed. The patient tolerated the procedure well without complications. A post procedural expiratory chest film will be ordered. Estimated Blood Loss: None Narrative Procedure Note Pravin Alvares MD - 03/22/2025 IMPRESSION: Please see below. Exam: US ASPIRATION PLEURA LEFT Date/Time of Exam: 03/22/2025 12:20 PM Reason For Exam: Pleural Effusion. This procedure was performed and preliminary findings dictated by Real Vega PA-C. Supervision and final interpretation by Dr. Alvares. CONSENT: Risks, benefits, and alternatives of the procedure were discussed with the patient. Specific risks of thoracentesis to include, but not limited to: bleeding, infection, pain, pneumothorax which might require placement of a chest tube or surgery to correct, damage to adjacent tissue/organs, and . The procedure may need to be repeated if the fluid sample obtained is non-diagnostic. Written informed consent was obtained from the patient. Procedure in Detail: A time out was performed to verify the patient and procedure. The patient was placed in a sitting position on the edge of the exam table, and ultrasound was utilized to evaluate the left thorax for largest pocket of free fluid. The area was marked, prepped, and draped in the usual sterile fashion. All elements of maximal sterile barrier technique, including hand hygiene and cutaneous antisepsis with an antisepsis agent, were used. Local anesthesia was achieved with 1% lidocaine overlying the proposed needle course. A 10 cm 5 [place] Bank centesis catheter was inserted and approximately 520 ml of a cloudy, flower pleural fluid was then removed via suction. The centesis catheter was removed in its entirety, the chlorhexidine cleansed from the skin, and a sterile dressing placed. The patient tolerated the procedure well without complications. A post procedural expiratory chest film will be ordered. Estimated Blood Loss: None us Yenni Aguirre NP ORDERABLES Final Result * PROTIME-INR (03/22/2025 8:22 AM CDT) PROTIME 13.7 12.7 - 14.9 Seconds 03/22/2025 8:46 AM CDT [facility] INR 1.0 0.8 - 1.2 03/22/2025 8:46 AM CDT [facility] Blood Venipuncture / Unknown 03/22/2025 8:22 AM CDT 03/22/2025 8:31 AM CDT Narrative [facility] - 03/22/2025 8:46 AM CDT Expected Values for INR: DVT/PE Goal INR 2.5; range 2.0 - 3.0 Valve Replacement Tissue Goal INR 2.5; range 2.0 - 3.0 Valve Replacement Mechanical Goal INR 3.0; range 2.5 - 3.5 POST-TN Goal INR 2.5; range 2.0 - 3.0 or Goal INR 3.0; range 2.5 - 3.5 Atrial Fibrillation Goal INR 2.5; range 2.0 - 3.0 Ischemic Stroke Goal INR 2.5; range 2.0 - 3.0 Linsey Fernando MD HEMATOLOGY ORDERABLES Fariba kedar Result [facility] # [id number] [facility] [address] [address] [place] [address] * CT ABDOMEN PELVIS W CONTRAST (03/21/2025 3:36 PM CDT) Anatomical Region Laterality Modality Abdomen Computed Tomogra phy 03/21/2025 3:38 PM CDT Impressions 03/21/2025 3:59 PM CDT IMPRESSION: Please see below. Exam: CT ABDOMEN PELVIS W CONTRAST Date/Time of Exam: 03/21/2025 3:36 PM Reason For Exam: Abdominal pain, post-op. Diagnosis: See Reason for Exam. Technique: 5 mm volumetric acquisition with oral and intravenous contrast. Contrast: IOPAMIDOL 61 % INTRAVENOUS SOLUTION (MULTI-DOSE BULK PACK) Given:100 mL Comparison: None Findings: Partially visualized chest: Left basilar compressive atelectasis versus airspace disease with incomplete imaging of moderate left pleural effusion. Peripheral atelectasis versus airspace disease of the right lower lobe. Liver: Subcentimeter hypodensity of the right hepatic lobe present to small to characterize by CT. Trace. Hepatic ascites. Gallbladder: Normal. Pancreas: Normal. Spleen: Subcapsular fluid collection involving the dome of the spleen present with surface irregularity involving the posterior aspect of the dome of the spleen present with shallow laceration not excluded. Adrenal glands: 1.9 cm indeterminate nodule left adrenal gland. Kidneys and ureters: 3.5 cm cortical cyst interpole segment left kidney. Urinary bladder: Fusiform bladder wall thickening. Reproductive organs: Mild prostatomegaly. GI tract: Partial colectomy with colostomy of the anterior left abdominal wall. Diverticular change of the unopacified, tortuous large bowel is present. Incidental note of intramural lipoma of the proximal transverse duodenum. The remaining unopacified bowel is unremarkable. Appendix: The appendix specifically is within normal limits. Free fluid: An approximately 2.8 x 2.2 x 4.3 cm rim-enhancing fluid collection of the anterior lateral left abdomen best demonstrated on image 243 series 3. Lymph nodes: No lymphadenopathy. Vasculature: Unremarkable. Body wall: Midline laparotomy incision is present with fusiform wall thickening of the skin about the level of the umbilicus present. Postprocedural change of the left inguinal region. Osseous structures: No acute osseous abnormality. No suspicious lesions. IMPRESSION: 1. Post operative change of recent partial colectomy with colostomy of the anterior left abdominal wall with rim enhancing fluid collection of the anterior left abdomen suspicious for intra-abdominal abscess. 2. Subcapsular fluid collection of the spleen with subdiaphragmatic fluid and slight irregularity involving the posterior aspect of the dome of the spleen suspicious for shallow laceration. Negative for active extravasation. 3. Incomplete imaging a moderate left pleural effusion with left basilar compressive atelectasis versus airspace disease. 4. Peripheral right basilar atelectasis versus airspace disease. 5. Fusiform bladder wall thickening likely related to component of underlying chronic bladder outlet obstruction with prostatomegaly present. 6. Indeterminate left adrenal nodule. Follow-up cross-sectional imaging in 12 months could be performed to assess stability/re-characterization. 7. Additional incidental findings as above. 8. The findings and/or imaging diagnoses in the above impression have been deemed a critical result by the interpreting radiologist and immediately reported as such to the ordering physician or appropriate licensed caregiver in accordance with current radiology department policy. Narrative Procedure Note Ramesh Hu MD - 03/21/2025 IMPRESSION: Please see below. Exam: CT ABDOMEN PELVIS W CONTRAST Date/Time of Exam: 03/21/2025 3:36 PM Reason For Exam: Abdominal pain, post-op. Diagnosis: See Reason for Exam. Technique: 5 mm volumetric acquisition with oral and intravenous contrast. Contrast: IOPAMIDOL 61 % INTRAVENOUS SOLUTION (MULTI-DOSE BULK PACK) Given:100 mL Comparison: None Findings: Partially visualized chest: Left basilar compressive atelectasis versus airspace disease with incomplete imaging of moderate left pleural effusion. Peripheral atelectasis versus airspace disease of the right lower lobe. Liver: Subcentimeter hypodensity of the right hepatic lobe present to small to characterize by CT. Trace. Hepatic ascites. Gallbladder: Normal. Pancreas: Normal. Spleen: Subcapsular fluid collection involving the dome of the spleen present with surface irregularity involving the posterior aspect of the dome of the spleen present with shallow laceration not excluded. Adrenal glands: 1.9 cm indeterminate nodule left adrenal gland. Kidneys and ureters: 3.5 cm cortical cyst interpole segment left kidney. Urinary bladder: Fusiform bladder wall thickening. Reproductive organs: Mild prostatomegaly. GI tract: Partial colectomy with colostomy of the anterior left abdominal wall. Diverticular change of the unopacified, tortuous large bowel is present. Incidental note of intramural lipoma of the proximal transverse duodenum. The remaining unopacified bowel is unremarkable. Appendix: The appendix specifically is within normal limits. Free fluid: An approximately 2.8 x 2.2 x 4.3 cm rim-enhancing fluid collection of the anterior lateral left abdomen best demonstrated on image 243 series 3. Lymph nodes: No lymphadenopathy. Vasculature: Unremarkable. Body wall: Midline laparotomy incision is present with fusiform wall thickening of the skin about the level of the umbilicus present. Postprocedural change of the left inguinal region. Osseous structures: No acute osseous abnormality. No suspicious lesions. IMPRESSION: 1. Post operative change of recent partial colectomy with colostomy of the anterior left abdominal wall with rim enhancing fluid collection of the anterior left abdomen suspicious for intra-abdominal abscess. 2. Subcapsular fluid collection of the spleen with subdiaphragmatic fluid and slight irregularity involving the posterior aspect of the dome of the spleen suspicious for shallow laceration. Negative for active extravasation. 3. Incomplete imaging a moderate left pleural effusion with left basilar compressive atelectasis versus airspace disease. 4. Peripheral right basilar atelectasis versus airspace disease. 5. Fusiform bladder wall thickening likely related to component of underlying chronic bladder outlet obstruction with prostatomegaly present. 6. Indeterminate left adrenal nodule. Follow-up cross-sectional imaging in 12 months could be performed to assess stability/re-characterization. 7. Additional incidental findings as above. 8. The findings and/or imaging diagnoses in the above impression have been deemed a critical result by the interpreting radiologist and immediately reported as such to the ordering physician or appropriate licensed caregiver in accordance with current radiology department policy. Nathanael Albarado DO CT ORDERABLES Final Result * US LOW EXT PATRICK DUPLEX COMP BILAT (03/20/2025 2:03 PM CDT) Anatomical Region Laterality Modality Lower Extremity Ultrasound 03/20/2025 11:5 8 AM CDT Narrative 03/24/2025 2:41 PM CDT [facility] Noninvasive Vascular Laboratory [address] [place] [id number] Noninvasive Vascular Lab Venous Exam Complete Lower Extremity Duplex Patient: Diego Villaseñor Study ID: US LOW EXT PATRICK D Gender: Derek : 1960 Age: 64 Room: [facility]9 Height: Weight: BSA: Pt status: Outpatient Study Date: 03/20/2025 Study Time: 11:58:01 AM BSA: Ordering: Vivi Huynh Interpreting:Neo Stark Machinist Outside: Leta Mike Indications: Pain, edema. Summary Doppler venous of the lower extremities demonstrates flow which is spontaneous, phasic and augments well. Competence is demonstrated. No pulsatility is noted. Imaging of the bilateral extremities demonstrated compressibility for the deep and superficial systems. No intraluminal echoes are noted. Impression: No evidence of deep or superficial venous thrombosis involving the right lower extremity and left lower extremity. Study data: Complete lower extremity venous duplex evaluation. Doppler flow study including spectral analysis, color and ferris scale imaging. Location: Vascular laboratory. Patient status: Outpatient. Study status: Routine. Procedure: A vascular evaluation was performed. Image quality was good. Venous flow and imaging: - Right common femoral Patent; Normal phasicity; spontaneous; compressible; normal augmentation - Right profunda femoral Patent; Normal phasicity; spontaneous; compressible; normal augmentation - Right femoral Patent; Normal phasicity; spontaneous; compressible; normal augmentation - Right popliteal Patent; Normal phasicity; spontaneous; compressible; normal augmentation - Right posterior tibial Patent; Compressible; normal augmentation - Right peroneal Patent; Compressible; normal augmentation - Right great saphenous Patent; Normal phasicity; spontaneous; compressible; normal augmentation - Left common femoral Patent; Normal phasicity; spontaneous; compressible; normal augmentation - Left profunda femoral Patent; Normal phasicity; spontaneous; compressible; normal augmentation - Left femoral Patent; Normal phasicity; spontaneous; compressible; normal augmentation - Left popliteal Patent; Normal phasicity; spontaneous; compressible; normal augmentation - Left posterior tibial Patent; Compressible; normal augmentation - Left peroneal Patent; Compressible; normal augmentation - Left great saphenous Patent; Normal phasicity; spontaneous; compressible; normal augmentation [facility] is accredited with the Intersocietal Commission for the Accreditation of Vascular Laboratories (ICAVL) Prepared and Electronically Authenticated Neo Stark Confirmed 03/24/2025 14:41 Procedure Note Neo Stark MD - 03/24/2025 [facility] Noninvasive Vascular Laboratory [address] [place] [id number] Noninvasive Vascular Lab Venous Exam Complete Lower Extremity Duplex Patient: Diego Villaseñor Study ID: US LOW EXT PATRICK D Gender: Derek : 1960 Age: 64 Room: [facility] Height: Weight: BSA: Pt status: Outpatient Study Date: 03/20/2025 Study Time: 11:58:01 AM BSA: Ordering: Vivi Huynh Interpreting:Neo Stark Machinist Outside: Leta Mike Indications: Pain, edema. Summary Doppler venous of the lower extremities demonstrates flow which is spontaneous, phasic and augments well. Competence is demonstrated. No pulsatility is noted. Imaging of the bilateral extremities demonstrated compressibility for the deep and superficial systems. No intraluminalechoes are noted. Impression: No evidence of deep or superficial venous thrombosis involving the rightlower extremity and left lower extremity. Study data: Complete lower extremity venous duplex evaluation.Doppler flow study including spectral analysis, color and ferris scale imaging. Location: Vascular laboratory. Patient status: Outpatient. Study status: Routine. Procedure: A vascular evaluation was performed.Image quality was good. Venous flow and imaging: - Right common femoral Patent; Normal phasicity; spontaneous;compressible; normal augmentation - Right profunda femoral Patent; Normal phasicity; spontaneous;compressible; normal augmentation - Right femoral Patent; Normal phasicity; spontaneous; compressible;normal augmentation - Right popliteal Patent; Normal phasicity; spontaneous; compressible;normal augmentation - Right posterior tibial Patent; Compressible; normal augmentation - Right peroneal Patent; Compressible; normal augmentation - Right great saphenous Patent; Normal phasicity; spontaneous;compressible; normal augmentation - Left common femoral Patent; Normal phasicity; spontaneous;compressible; normal augmentation - Left profunda femoral Patent; Normal phasicity; spontaneous;compressible; normal augmentation - Left femoral Patent; Normal phasicity; spontaneous; compressible;normal augmentation - Left popliteal Patent; Normal phasicity; spontaneous; compressible;normal augmentation - Left posterior tibial Patent; Compressible; normal augmentation - Left peroneal Patent; Compressible; normal augmentation - Left great saphenous Patent; Normal phasicity; spontaneous;compressible; normal augmentation [facility] is accredited with theO[facility] Valley Hospitalsocietal Commission for the Accreditation of Vascular Laboratories (ICAVL) Prepared and Electronically Authenticated Neo Stark Confirmed 03/24/2025 14:41 Vivi AMANDA US ORDERABLES Final Result * (ABNORMAL) COMPREHENSIVE METABOLIC PANEL (03/16/2025 4:34 AM CDT) Only the most recent of3 resultswithin the time period is included. Pathologist [facility] SODIUM 141 136 - 145 mmol/L 03/16/2025 5:42 AM [facility] POTASSIUM 4.0 3.5 - 5.1 mmol/L 03/16/2025 5:42 AM [facility] CHLORIDE 107 98 - 107 mmol/L 03/16/2025 5:42 AM [facility] CO2 26 22 - 29 mmol/L 03/16/2025 5:42 AM [facility] CALCIUM 8.7(L) 8.8 - 10.2 mg/dL 03/16/2025 5:42 AM [facility] BUN 24(H) 8 - 23 mg/dL 03/16/2025 5:42 AM [facility] CREATININE 0.87 0.67 - 1.17 mg/dL 03/16/2025 5:42 AM [facility] GLUCOSE 111(H) 74 - 99 mg/dL 03/16/2025 5:42 AM [facility] TOTAL PROTEIN 6.0(L) 6.4 - 8.3 g/dL 03/16/2025 5:42 AM [facility] ALBUMIN 3.1(L) 3.5 - 5.2 g/dL 03/16/2025 5:42 AM [facility] BILIRUBIN TOTAL 0.5 0.0 - 1.0 mg/dL 03/16/2025 5:42 AM [facility] ALKALINE PHOSPHATASE 56 40 - 129 U/L 03/16/2025 5:42 AM [facility] AST 19 10 - 50 U/L 03/16/2025 5:42 AM [facility] ALT 12 <=50 U/L 03/16/2025 5:42 AM [facility] GFR >60 >=60 mL/min/1.7 3 sq meter 03/16/2025 5:42 AM [facility] Comment:eGFR calculated with 2020 CKD-EPI equation. Vegetarian diet, extremely high or low muscle mass, and may affect results. Cystatin C with Glomerular Filtration Rate is a suitable alternative for these patients. ANION GAP 8(L) 9 - 20 mmol/L 03/16/2025 5:42 AM [facility] Blood Venipuncture / Unknown 03/16/2025 4:34 AM CDT 03/16/2025 5:09 AM T us Saleem Conteh NP CHEMISTRY ORDERABLES Final R esult [facility] CLIA # [id number] [address] [address] [place], [place] [address] from Last 3 Months Insurance [employer] EXCHANGE RX [facility] Commercial Advance Directives For more information, please contact: [phone] * Full Code (Latest Code Status on File) Date Activated Date Inactivated Comments 03/20/2025 1:28 PM 03/25/2025 5:05 PM Care Teams Bank Credit Card Collection Clerk Relationship Specialty Start Date End Date Alon Salazar MD [address] [facility] [address] [place] [id number] PCP - General 07/05/04
--- OUTSIDE RECORDS SUMMARY | 2025-04-02 00:41 | XMS_ITS | Encounter Summary ---
Author Organization [facility] Address [address] [place] [address] Care Team Providers Care Contemporary Or Modern Dancer Name Role Phone Alon Salazar MD Primary Care Provider [phone] Encounter Details Date Type Department Care Team (Late st Contact Info) Description 03/28/2025 Orders Only [facility] [address] [place] [address] Provider, Abstract NO ADDRESS ON FILE Social History Tobacco Use Types Packs/Day Years [...] worry about transportation for future doctor visits, cotton picker medication, etc.? No 2024 Housing Stability [...] on file Legal Sex Male 8:01 AM PROBATION AND PATROL AGENT Gender Identity Not on file Sexual Orientation Not on file documented as of this encounter Plan of Treatment Upcoming Encounters Date Type Department Care Team (Late st Contact Info) Description 05/01/2025 9:00 AM PROBATION AND PATROL AGENT Office Visit [facility] [place] [address] [place] [address] Erick Reina NP [address] [place] [address] documented as of this encounter Procedures Procedure Name Priority Date/Time Associated Diagnosis Comments COMPREHENSIVE METABOLIC PANEL Routine 03/15/2025 3:33 PM CDT COMPREHENSIVE METABOLIC PANEL Routine 03/14/2025 3:38 PM CDT documented in this encounter Results * COMPREHENSIVE METABOLIC PANEL (03/15/2025 3:33 PM CDT) Blood us Abstract Provider CHEMISTRY ORDERABLES Final Res ult * COMPREHENSIVE METABOLIC PANEL (03/14/2025 3:38 PM CDT) Blood us Abstract Provider CHEMISTRY ORDERABLES Final Res ult documented in this encounter Visit Diagnoses Not on filedocumented in this encounter Care Teams Contemporary Or Modern Dancer Relationship Specialty Start Date End Date Alon Salazar MD [address] [facility] [address] [place] [phone] PCP - General 07/05/04 documented as of this encounter
--- NOTE | 2025-04-02 00:49 | ECG_ITS ---
[facility] 2025-04-02 Pat Name: Marcial Villaseñor Department: Room: Gender: Male Analytical Consultant: : 1960 Requested By: Omar Herr Order Number: [id number] Fatima MD: Olivia Lindsey M.D. Measurements Intervals [place] Rate: 76 P: 38 MO: 166 QRS: -3 QRSD: 106 T: 23 QT: 385 QTc: 434 Interpretive Statements SINUS RHYTHM MINIMAL VOLTAGE CRITERIA FOR LVH, CONSIDER NORMAL VARIANT [MEETS CRITERIA IN ONE OF: R(aVL), S(V1), R(V5), R(V5/V6)+S(V1)] Compared to ECG 03/14/2025 07:12:05 Sinus tachycardia no longer present Electronically Signed On 04-02-2025 18:13:38 MEDIUM CYCLE SALESPERSON by Olivia Lindsey M.D. [email or web address]
--- NOTE | 2025-04-02 00:50 | XRR_ITS ---
PROCEDURE INFORMATION: Exam: XR Chest Exam date and time: 04/02/2025 12:51 AM Age: 64 years old Clinical indication: Shortness of breath; Prior surgery; Surgery date: <1 month; Surgery type: Left thoracentesis TECHNIQUE: Imaging protocol: Radiologic exam of the chest. Views: 1 view. COMPARISON: CR XR chest 1V portable [id number] 03/14/2025 10:44 AM FINDINGS: Lungs: Unremarkable. No consolidation. Pleural spaces: Small bilateral pleural effusions. Heart/Mediastinum: Mild cardiomegaly. Bones/joints: ACDF into cervical spine locations. XR/XR chest 1V portable [id number] IMPRESSION: Small bilateral pleural effusions.
--- NOTE | 2025-04-02 01:06 | CTR_ITS ---
PROCEDURE INFORMATION: Exam: CTA Chest With Contrast Exam date and time: 04/02/2025 1:30 AM Age: 64 years old Clinical indication: Other: N/a; Abdominal pain; Localized; Left upper quadrant (luq); Shortness of breath; Left-sided; Prior surgery; Surgery date: <1 month; Surgery type: Sigmoid repair with ostomy approximately three weeks ago. Cervical fusion. Lumbar. C/O left sided chest and luq pain with SOB. Hospitalization approximately three weeks ago having thoracentesis for left pleural effusion and sigmoid repair with ostomy. ; Additional info: L sided chest upper abd pain. Recent thoracent, belly surg TECHNIQUE: Imaging protocol: Computed tomographic angiography of the chest with contrast. Exam focused on the arteries. 3D rendering (Not supervised by radiologist): MIP and/or 3D reconstructed images were created by the technologist. Radiation optimization: All CT scans at this facility use at least one of these dose optimization techniques: automated exposure control; mA and/or kV adjustment per patient size (includes targeted exams where dose is matched to clinical indication); or iterative reconstruction. Contrast material: OMNI 350; Contrast volume: 165 ml; Contrast route: INTRAVENOUS (IV); COMPARISON: CR (CHEST, ) 04/02/2025 12:51 AM RADIATION DOSE METRICS: Total DLP (mGy-cm): 1434.4 FINDINGS: Pulmonary arteries: See Lungs finding. Aorta: Unremarkable. No aortic aneurysm. No aortic dissection. Lungs: Airspace consolidations at the lung bases, left greater than right, concerning for multilobar pneumonia. Small left parapneumonic effusion.No pulmonary embolism. Pleural spaces: See Lungs finding. Heart: Unremarkable. No cardiomegaly. No pericardial effusion. Lymph nodes: Unremarkable. No enlarged lymph nodes. Bones/joints: Degenerative changes of the spine. Soft tissues: Unremarkable. PROCEDURE INFORMATION: Exam: CT Abdomen And Pelvis With Contrast Exam date and time: 04/02/2025 1:30 AM Age: 64 years old Clinical indication: Other: N/a; Abdominal pain; Localized; Left upper quadrant (luq); Shortness of breath; Left-sided; Prior surgery; Surgery date: <1 month; Surgery type: Sigmoid repair with ostomy approximately three weeks ago. Cervical fusion. Lumbar. C/O left sided chest and luq pain with SOB. Hospitalization approximately three weeks ago having thoracentesis for left pleural effusion and sigmoid repair with ostomy. ; Additional info: L sided chest upper abd pain. Recent thoracent, belly surg TECHNIQUE: Imaging protocol: Computed tomography of the abdomen and pelvis with contrast. Radiation optimization: All CT scans at this facility use at least one of these dose optimization techniques: automated exposure control; mA and/or kV adjustment per patient size (includes targeted exams where dose is matched to clinical indication); or iterative reconstruction. Contrast material: OMNI 350; Contrast volume: 165 ml; Contrast route: INTRAVENOUS (IV); COMPARISON: CT abdomen pelvis w con* [id number] 03/14/2025 4:00 AM RADIATION DOSE METRICS: Total DLP (mGy-cm): 1434.4 FINDINGS: Liver: Cyst in the right hepatic lobe measures 11 mm. Hepatic steatosis. Gallbladder and biliary ducts: Normal. No calcified stones. No ductal dilation. Pancreas: Normal. No ductal dilation. Spleen: Normal. No splenomegaly. Adrenal glands: Normal. No mass. Kidneys and ureters: Left lower pole renal cyst measures 3.3 x 2.9 cm. Stomach and bowel: Colectomy with left lower quadrant colostomy. Parastomal hernia measures approximately 4.6 x 4.5 cm. Minimal fat stranding in the peristomal hernia, correlate for inflamed exiting loop (colitis). No small bowel obstruction. Appendix: No evidence of appendicitis. Intraperitoneal space: No free air. Vasculature: Unremarkable. No abdominal aortic aneurysm. Lymph nodes: Unremarkable. No enlarged lymph nodes. Urinary bladder: Unremarkable as visualized. Reproductive: Unremarkable as visualized. Bones/joints: Unremarkable. No acute fracture. Soft tissues: Midline laparotomy otis. CT/CT angio chest w abd pel w con IMPRESSION: Airspace consolidations at the lung bases, left greater than right, concerning for multilobar pneumonia. Small left parapneumonic effusion.No pulmonary embolism. IMPRESSION: 1. Colectomy with left lower quadrant colostomy. Parastomal hernia measures approximately 4.6 x 4.5 cm. Minimal fat stranding in the peristomal hernia, correlate for inflamed exiting loop (colitis). 2. No small bowel obstruction. COMMENTS: Consistent with the [employer]'s Incidental Findings Committee white paper (J Am Enrique Radiol 2018): Any incidental renal lesion less than 1 cm or classified as too small to characterize, or any incidental cystic renal lesion characterized as simple-appearing, is likely benign. No follow-up imaging is recommended for these lesions per consensus recommendations based on imaging criteria.
[2025-04-02 01:26] LABS: Hematocrit 37.0 % (37-53); Hemoglobin 12.10 g/dL (11.27-16.99); Mean Corpuscular HGB Conc 32.7 g/dL (30-55); Mean Corpuscular Hemoglobin 28.4 pg (27-33); Mean Corpuscular Volume 86.9 fl (82-101); Nucleated Red Blood Cells % 0 %; Platelet Count 478 10^3/cmm (157-399); Red Blood Count 4.26 10^6/uL (3.85-5.65); White Blood Count 7.43 10^3/uL (3.29-11.43)
[2025-04-02] MEDS: iohexol 350 mg/mL 500 mL Btl (per mL) IV (01:29)
[2025-04-02 01:42] LABS: Lactic Sepsis W/Reflex 1.9 mmol/L (0.5-2.2)
--- NOTE | 2025-04-02 01:42 | ED_ITS ---
HPI - SOB/Dyspnea 2 General: Chief Complaint: Shortness of Breath/Dyspnea Stated Complaint: SOB Time Seen by Provider: 04/02/25 00:43 History of Present Illness: HPI Narrative: Patient is a 64-year-old male presenting with left-sided chest pain and shortness of breath that has worsened over the past couple of days. The patient reports that the pain is located on the left side of his chest, and it is exacerbated when lying down. He describes difficulty breathing, particularly when taking deep breaths. The patient recently underwent a thoracentesis approximately one week ago, where 520 cc of cloudy flower pleural fluid was removed from the left lung. He also had a CT-guided needle aspiration of an abdominal abscess during the same hospitalization. The patient reports continued low-grade fevers since discharge from [facility], ranging from 99.7?F to 100.7?F, with the highest recorded temperature being 100.7?F. He denies significant cough. The patient mentions ongoing leakage from his abdominal incision site, though it has been decreasing. He reports that his white blood cell count was elevated at discharge, but was told this was normal for his condition. The patient notes that his shortness of breath has been increasing over the last couple of days, with pain particularly noticeable at the thoracentesis site and increasing discomfort in his abdomen by the end of each day. Related Data Home Medications ?Medication ?Instructions ?Recorded ?Confirmed esomeprazole magnesium 20 mg 20 mg PO DAILY 03/08/25 1 05/29/24 capsule,delayed release diphenhydramine 25 1 tab PO Q4H PRN Sleep 03/1403/29/25 mg-acetaminophen 500 mg tablet (Tylenol PM Extra Strength) docusate sodium 100 mg capsule 100 mg PO BID 03/14/25 03/29/25 methocarbamol 500 mg tablet mg PO Q6H 03/28/25 5 oxycodone 10 mg tablet mg PO Q8H 03/28/25 03/29/25 polyethylene glycol 3350 17 gram 17 g PO DAILY 5 03/29/25 oral powder packet (Miralax) Previous Rx's ?Medication ?Instructions ?Recorded amoxicillin 875 mg-potassium 1 tab PO BID 7 days #14 t abs 03/28/25 clavulanate 125 mg tablet nystatin 100,000 unit/gram topical 1 applic topical BI D #30 grams 03/29/25 cream triamcinolone acetonide 0.1 % 1 applic topical BID itc sammi #80 03/29/25 topical cream grams Allergies Allergy/AdvReac Type Severity Reaction Status Date / Time No Known Allergies Allergy Verified 03/29/25 14:33 PFSH ED 2 PFSH: Medical History Neck pain with history of cervical spinal surgery Spinal stenosis of cervical region with radiculopathy Social History Smoking and tobacco/nicotine status: never used tobacco/nicotine Alcohol intake: never Substance/Drug Use: never Physical Exam 2 Const: GENERAL APPEARANCE: cooperative; not frail appearing ORIENTATION/CONSCIOUSNESS: Yes awake HENMT: COMMON NORMALS: normocephalic and atraumatic HEAD & SCALP: n ormocephalic and atraumatic FACE & SINUS: normal facial exam and face symmetric NOSE: Normal nares present Eye: COMMON NORMALS: Equal, round and reactive pupils present and EOMs intact bilaterally PUPIL: Yes Equal, round and reactive pupils present Neck/C-Spine: GENERAL: Yes trachea midline Resp: COMMON NORMALS: normal respiratory effort, No use of accessory muscles and clear to auscultation bilaterally AUSCULTATION: clear to auscultation bilaterally Cardio: COMMON NORMALS: regular rate and regular rhythm RATE: regular rate RHYTHM: regular rhythm GI: COMMON NORMALS: Soft to palpation PALPATION: Yes Soft to palpation and Yes Tenderness to palpation present (GI) (Generalized) OTHER: Abdominal incision slight redness, no drainage currently. [place] are in place. No dehiscence. Colostomy appears normal. : BLADDER/KIDNEY EXAM: Yes CVA tenderness on the left Back/Pelvis: GENERAL BACK: Yes CVA tenderness Neuro: CLEMENCIA COMA SCALE: document GCS findings Clemencia coma scale eye opening: Spontaneous Clemencia coma scale verbal response: Orientated [place] coma scale motor response: Obey commands Clemencia coma scale total score: 15 Course 2 Vital Signs: Vital signs: Vital Signs Temperature 97.4 F L 04/02/25 00:48 Pulse Rate 92 04/02/25 03:03 Respiratory Rate 22 H 04/02/25 03:03 Blood Pressure 119/81 04/02/25 03:03 Pulse Oximetry 96 04/02/25 03:03 Oxygen Delivery Me thod Nasal Cannula 04/02/25 03:03 Oxygen Flow Rate 2 04/02/25 03:03 MDM - SOB/Dyspnea Medical Decision Making 64-year-old male with reproducible pleuritic chest discomfort to the left lateral and posterior chest. He is afebrile. His vitals been stable. His saturation on room air is 90 to 92%. He is placed on 2 L of oxygen with increased comfort with his breathing. His CBC is not remarkable. His creatinine is 0.6. BMP not remarkable. His lactic acid is 1.9. His BNP is not on detectable. Swabs are negative for COVID flu and RSV. Chest x-ray revealed small bilateral pleural effusions. CTA of the chest was performed with follow- through to the abdomen pelvis. Chest reveals air space consolidations at the lung bases on the left greater than right with a left parapneumonic effusion that is small. There is no PE. CT of the belly reveals a parastomal hernia, otherwise nonacute. I spoke with the hospitalist regarding admission for hospital associated pneumonia, with parapneumonic effusion in the left base. Blood cultures have been obtained. Patient was started on vancomycin and Zosyn. Hospitalist agreed to see the patient, and place him in observation. At approximately 2:35 AM, the patient began to complain of a different chest pain. This 1 was more centralized, not related to his breath, radiating into his back. He was more short of breath, and became mildly diaphoretic. EKG was done immediately. EKG timed 0237 reveals a sinus bradycardia with a rate of 60, normal intervals, but with significant ST elevation in leads II, III and aVF consistent with STEMI. Alert was called. Spoke with director federal immediately. Meteorology Professor team was called in. He received IV heparin, Plavix orally, aspirin orally, and IV morphine.. Nitroglycerin was not used, as he was showing inferior changes. Bolus of fluid was started. Pain improved greatly following administration of medications. Repeat EKG shows essential resolution of the ST segment elevation in inferior leads. Nonetheless, he will go to the Meteorology Professor direct from ER. Jig Builder Helper is at bedside evaluating the patient. Lab Data 04/02/25 01:10 04/02/25 01:10 Labs/Radiology: Radiology Impressions Chest X-Ray 04/02/25 00:50 IMPRESSION: Small bilateral pleural effusions. Chest/Abdomen/Pelvis CT 04/02/25 01:06 IMPRESSION: Airspace consolidations at the lung bases, left greater than right, concerning for multilobar pneumonia. Small left parapneumonic effusion.No pulmonary embolism. IMPRESSION: 1. Colectomy with left lower quadrant colostomy. Parastomal hernia measures approximately 4.6 x 4.5 cm. Minimal fat stranding in the peristomal hernia, correlate for inflamed exiting loop (colitis). 2. No small bowel obstruction. COMMENTS: Consistent with the [employer]'s Incidental Findings Committee white paper (J Am Enrique Radiol 2018): Any incidental renal lesion less than 1 cm or classified as too small to characterize, or any incidental cystic renal lesion characterized as simple-appearing, is likely benign. No follow-up imaging is recommended for these lesions per consensus recommendations based on imaging criteria. Laboratory Results WBC 7.43 10^3/uL (3.29-11.43) 04/02/25 01:10 RBC 4.26 10^6/uL (3.85-5.65) 04/02/25 01:10 Hgb 12.10 g/dL (11.27-16.99) 04/02/25 01:10 Hct 37.0 % (37-53) 04/02/25 01:10 MCV 86.9 fl (82-101) 04/02/25 01:10 MCH 28.4 pg (27-33) 04/02/25 01:10 MCHC 32.7 g/dL (30-55) 04/02/25 01:10 RDW 12.5 % (12.1-15.1) 04/02/25 01:10 Plt Count 478 10^3/cmm (157-399) H 04/02/25 01:10 MPV 8.0 fL (7.4-10.4) 04/02/25 01:10 Neut % (Auto) 50.0 % 04/02/25 01:10 Lymph % (Auto) 37.1 % 04/02/25 01:10 [place] % (Auto) 10.1 % 04/02/25 01:10 Eos % (Auto) 2.3 % 04/02/25 01:10 Baso % (Auto) 0.4 % 04/02/25 01:10 Neut # (Auto) 3.71 10^3/uL (1.8-7.7) 04/02/25 01:10 Lymph # (Auto) 2.8 10^3/uL (0.8-4.8) 04/02/25 01:10 [place] # (Auto) 0.8 10^3/uL (0.2-0.9) 04/02/25 01:10 Eos # (Auto) 0.2 10^3/uL (0.0-0.8) 04/02/25 01:10 Baso # (Auto) 0.0 10^3/uL (0.0-0.1) 04/02/25 01:10 Nucleated RBC % (auto) 0 % 04/02/25 01:10 Nucleated RBCs # 0.0 /100WBC 04/02/25 01:10 Sodium 136 mmol/L (136-145) 04/02/25 01:10 Potassium 4.2 mmol/L (3.5-5.1) 04/02/25 01:10 Chloride 100 mmol/L (98-107) 04/02/25 01:10 Carbon Dioxide 23 mmol/L (22-29) 04/02/25 01:10 Anion Gap 17.2 (5-19) 04/02/25 01:10 BUN 12 mg/dL (8-23) 04/02/25 01:10 Creatinine 0.6 mg/dL (0.7-1.2) L 04/02/25 01:10 GFR Calculation 136.5 mL/min (90-130) H 04/02/25 01:10 Glucose 105 mg/dL (65-115) 04/02/25 01:10 Calculated Osmolality 282 mOsm/kg (285-295) L 04/02/25 01:10 Lactic Acid 1.9 mmol/L (0.5-2.2) 04/02/25 01:10 Calcium 9.2 mg/dL (8.5-10.5) 04/02/25 01:10 Total Bilirubin 0.4 mg/dL (0.15-1.2) 04/02/25 01:10 AST 57 U/L (0-40) H 04/02/25 01:10 ALT 51 U/L (0-41) H 04/02/25 01:10 Alkaline Phosphatase 148 U/L (40-130) H 04/02/25 01:10 Troponin T Baseline 8 ng/L (0-15) 04/02/25 01:10 NT-Pro-B Natriuret Pep < 36 pg/mL (0-125) 04/02/25 01:10 Total Protein 7.0 g/dL (6.6-8.7) 04/02/25 01:10 Albumin 3.9 g/dL (3.5-5.2) 04/02/25 01:10 Globulin 3.1 g/dL (1.3-4.6) 04/02/25 01:10 Influenza A (PCR) Negative (Negative) 04/02/25 01:10 Influenza Type B (PCR) Negative (Negative) 04/02/25 01:10 RSV (PCR) Negative (Negative) 04/02/25 01:10 SARS-CoV-2 (PCR) Negative (Negative) 04/02/25 01:10 All radiology interpretation(s) finalized by discharge Critical Care Time 2 Critical Care Time: Critical Care Time: Yes Total Critical Care Time: 40 Attestation: This case had a high probability of a clinically significant, sudden, or life threatening deterioration of this patient's condition which required my full and direct attention, intervention and personal management. Time is independent of any procedures performed. Discharge Plan Discharge Condition: Stable Coding Level of Care Code ED Athletic Equipment Custodian for Dana Hodges
[2025-04-02 01:48] LABS: Alanine Aminotransferase 51 U/L (0-41); Albumin Level 3.9 g/dL (3.5-5.2); Alkaline Phosphatase 148 U/L (40-130); Anion Gap 17.2 (5-19); Aspartate Amino Transferase 57 U/L (0-40); Blood Urea Nitrogen 12 mg/dL (8-23); Calcium 9.2 mg/dL (8.5-10.5); Carbon Dioxide 23 mmol/L (22-29); Chloride 100 mmol/L (98-107); Globulin 3.1 g/dL (1.3-4.6); Glucose 105 mg/dL (65-115); NT Pro B Type Natriuretic Pept < 36 pg/mL (0-125); Osmolality Calculated 282 mOsm/kg (285-295); Potassium 4.2 mmol/L (3.5-5.1); Sodium 136 mmol/L (136-145); Total Protein 7.0 g/dL (6.6-8.7)
[2025-04-02] MEDS: morphine 4 mg/mL SDV 1 mL IVP ×2 (01:52→02:57)
[2025-04-02] MEDS: ondansetron 2 mg/ML SDV 2 mL 4 MG IVP ×2 (01:53→02:57)
[2025-04-02 02:04] LABS: Respiratory Syncytial Virus Ce NEGATIVE (Negative); SARS-CoV-2 PCR NEGATIVE (Negative)
[2025-04-02] MEDS: piperacillin-tazobactam 4.5 GM in sodium chloride 0.9% (plus) 50 ML IV (02:31)
[2025-04-02] MEDS: heparin 5,000 unit/mL INJ 1 mL 4000 UNIT IVP (02:58)
[2025-04-02 03:05] LABS: Troponin(5th) Baseline 8 ng/L (0-15)
--- NOTE | 2025-04-02 03:17 | XACV_ITS ---
Exam Room: 2 Ht: 178 cm Wt: 86 kg BSA: 2.07 m2 Gender: Male : 1960 Any Known Allergies: No known allergies Exam Priority: Routine Procedure(s): Procedure Description: Diagnostic procedure Procedure Description: PCI procedure Procedure Description: Left Heart Catheterization Procedure Description: Left ventriculography Procedure Description: Drug Eluting Coronary Stent Procedure Description: PTCA Procedure Description: Miscellaneous Procedure Description: ACT Procedure Description: Coronary Angiography Diagnostic Cath Status: Emergency Diagnostic Findings * Left Main has no significant disease. * Circumflex has no signficant disease. * Right Coronary Artery has mild luminal irregularities. * Mid Left Anterior Descending: significant 80% stenosis, DAVON: 3 flow. * Coronary angiography shows right dominance. PCI Status: Emergency PCI Indication: STEMI - Immediate PCI for STEMI Interventional Findings * Mid Left Anterior Descendin% stenosis treated with a AB TREK 2.50X12 RX BALLOON, JORI Rivera COLEEN 3.0X18 ATIYA, and JORI BARRETT EUPHORA RX [id number] BALLOON. * Procedure detail: We engaged left main artery with XB 3.0 guide catheter. IV heparin was administered to maintain anticoagulation. Run-through wire was used to cross stenosis. We predilated the stenosis with 2.5 x 12 mm semicompliant balloon. This was followed by placement of 3.0 x 18 mm resolute Coleen drug-eluting stent. We postdilated the stent with 3.25 x 12 mm NC balloon. At this time final angiogram was performed that showed excellent stent expansion and no residual stenosis. Guidewire and guide catheter were removed. Patient left the Pretzel Cooker in a stable condition.. Conclusions 1. Severe mid LAD stenosis s/p PCI with 1 stent. 2. Normal left ventricular systolic function. Ejection fraction of 55%. 3. Mid Left Anterior Descending was treated with a Balloon, Drug Eluting Stent, and Balloon. Recommendations * Dual antiplatelet therapy with aspirin and plavix. * High intensity statin therapy. * Outpatient cardiology follow up in 2 weeks. Interventional RX Recommendation: PCI w/o planned CABG Diagnostic RX Recommendation: PCI w/o planned CABG Anticoagulation: Heparin Ventriculography Ejection Fraction: 55.0 % Pressures Phase:Rest AO : 89 / 89 ( 72 ) @ 10:23:08 PM 97 / 56 ( 77 ) @ 10:23:08 PM 89 / 62 ( 76 ) @ 4:06:00 AM 113 / 65 ( 85 ) @ 4:16:00 AM 111 / 65 ( 81 ) @ 4:16:00 AM LV : 133 / -2 / 15 @ 4:15:00 AM 127 / -6 / 11 @ 4:16:00 AM 127 / -6 / 12 @ 4:16:00 AM Valves Phase:DefaultPhase AV : 15.0 @ 4:23:08 AM 15.0 @ 4:23:08 AM AV Mean Gradient: 19.0 @ 4:23:08 AM 19.0 @ 4:23:08 AM Clinical Evaluation EBL: 5mL-10mL Procedural Details Pre-Procedure Time Out. Identified patient by full name and date of as verbalized by the patient/guarantor. Does the consent match the physician's order: N/A Emergent. Accurate & Complete Informed Consent: N/A Emergent. Inpatient/Outpatient History & Physical on Chart: N/A Emergent. If H&P is completed, is and addenduem needed: No; If yes, is the addendum complete: N/A Emergent. Visualize and Verify Site with Patient/Guarantor: N/A. Relevant Radiology Images available: N/A Emergent. Pre-op teaching completed and patient verbalized understanding. The risks, benefits, and alternatives of sedation and/or procedure were discussed by physician. The patient agrees to continue. Procedure started. Physician arrived. Current Diagnosis : STEMI. [facility] Clinical Fraility Score: 3: Managing Well. Pretzel Cooker Indications: ACS <= 24 hours. Chest Pain Symptom Assessment: Typical Angina Symptoms. Correct patient, site and procedure confirmed by cath team. Current diagnosis: STEMI. PERRLA. Strong, equal hand call or contact centre manager bilaterally. Lungs clear x 5 lobes. IV Site on Arrival: 18 gauge in the left anticubital. IV Fluids: 0.9% NaCl at KVO. 0 mL infused prior to labor relations analyst. Pre Procedural Pulses: right radial was 3+. Oxygen started at 2liters/min via nasal canula. right groin was prepped with chloroprep then draped in the usual sterile fashion. right radial was prepped with chloroprep then draped in the usual sterile fashion. Baseline sample Acquired. HR: 86 BPM. Physician scrubbed in. Immediate Pre-Procedure Time Out. Correct Patient: Yes; Correct Procedure: Yes; Correct Site: Yes; Correct Patient Position: Yes; Correct Supplies: Yes; Dried Flammable Prep: Yes; Blood Products Available: N/A;. Lidocaine 1% infiltrated to the right radial. Arterial access obtained. 6 cymraes JR 4 guide catheter was inserted over the wire. Multiple views taken of right coronary artery. Catheter removed over the exchange wire. 6 cymraes XB 3 guide catheter was inserted over the wire. Multiple views taken of left coronary artery. Runthrough guidewire was advanced through the guide catheter to lesion in the mid LAD. A second Runthrough wire inserted. The second Runthrough wire removed. Inflation number : 1 A AB TREK 2.50X12 RX BALLOON was prepped and advanced across the Mid LAD , then inflated to 10 APPLE for 0:07 seconds. Inflation number: 2 The AB TREK 2.50X12 RX BALLOON was reinflated across the Mid LAD, to 10 APPLE for 0:06 seconds. Balloon out. Results checked. Inflation Number : 3 Sarah Rivera COLEEN 3.0X18 ATIYA -Lot Number# _[id number] EXP: 05/02/2027 was prepped and advanced across the Mid LAD. The stent was deployed at 12 APPLE for 0:18 seconds. Stent balloon out over wire. Inflation number : 4 A MDT NC EUPHORA RX [id number] BALLOON was prepped and advanced across the Mid LAD , then inflated to 20 APPLE for 0:16 seconds. Inflation number: 5 The MDT NC EUPHORA RX [id number] BALLOON was reinflated across the Mid LAD, to 18 APPLE for 0:10 seconds. Balloon out. Results checked. Wire out. Results checked. Guide catheter out. A 5 cymraes Angled Pig catheter in over wire. ACT drawn. Results 260 seconds. Therapeutic limits - pre-heparin administration 90-150 seconds and monitoring heparin during a vascular procedure >250 seconds. EDP Sample taken: LV 133/-3,15; HR: 21 BPM; SpO2: 98%. LV gram performed in AKINS @ 10 mL/second for a total of 30 mL. EDP Sample taken: LV 127/-7,11; HR: 84 BPM; SpO2: 98%. Pullback taken: LV 127/-7,12; AO 113/65(85); Mean: 19mmHg, Peak to Peak: 15mmHg, SEP: 6sec/min; HR: 71 BPM; SpO2: 99%. Catheter removed over the exchange wire. Physician scrubbed out. Vital chart was stopped. A TR Band was successful obtaining hemostatsis at the Right Radial artery insertion site. Post Procedure: Pulses reassessed and unchanged. PERRLA. Strong, equal hand call or contact centre manager bilaterally. No VTE prophylaxis required. Medication's Wasted: Lidocaine 1% = 18 mL. Medication's Wasted: Nitro = 49.8 mcg. Medication's Wasted: Other = Fentanyl 50 mcg. Total IV fluids: 55 mL. Post-op diagnosis: Stent to LAD. Complications: None. Estimated blood loss: 5mL-10mL. Responsiveness - Normal response to verbal stimuli; alert and oriented, PERRLA. Airway - Unaffected, no intervention required; spontaneous ventilation. Circulation: W/N/L, pulses unchanged. Nausea/Vomiting: No. Procedure completed. Patient transferred by bed to ICU. Access Site Site: Right Radial artery Sheath Size: 6 Fr Hemostasis Method: TR Band Hemostasis Success: Successful Procedure Medications Start: 3:31 AM Stop: 3:31 AM Medication: Versed 1 mg and Fentanyl 25 mcg Amount: 1 Route: I.V. Start: 3:35 AM Stop: 3:35 AM Medication: Fentanyl Amount: 25 mcg Route: I.V. Start: 3:36 AM Stop: 3:36 AM Medication: Nitrogylcerin Amount: 200 mcg Route: I.A. Start: 3:47 AM Stop: 3:47 AM Medication: Heparin Amount: 4000 units Route: I.V. Start: 3:48 AM Stop: 3:48 AM Medication: Versed Amount: 1 mg Route: I.V. Start: 4:03 AM Stop: 4:03 AM Medication: Heparin Amount: 1000 units Route: I.V. Start: 4:16 AM Stop: 4:16 AM Medication: Heparin Amount: 1000 units Route: I.V. I, the attending physician, have reviewed and verified all procedure medications. Yes, all medications given per verbal order History/Risk Factors Hypertension: No Dyslipidemia: No Peripheral Arterial Disease (PAD): No Myocardial Infarction (WA): No Obesity: No Renal Disease: No Prior Interventions PCI: No CABG: No Valve Surgery: No Report Signatures Finalized by Bernardo Gan MD on 04/09/2025 09:22 AM
--- NOTE | 2025-04-02 03:22 | P.HP_ITS ---
Providers/Chief Complaint 2 Admitting Physician: Bernardo Gan MD/ Interventional cardiology Primary Care Provider: Alon Salazar MD Chief Complaint: SOB History of Present Illness Marcial Villaseñor is a 64 year old male with recent spinal surgery and colon perforation status post abdominal surgery and colostomy came to hospital with 2 days of chest discomfort. According to patient was getting worse with deep breathing. It was associated with shortness of breath. During his recent hospitalization, he underwent thoracentesis for pleural effusion. He also had abdominal abscess drainage. At low-grade fevers around that time. His initial EKG did not show significant ST elevation. However he developed worsening chest discomfort with radiation to back around 2:35 AM. EKG repeated and ER showed inferior leads ST elevation. STEMI alert was called and Senior Communications Specialist activated. He was given aspirin, Plavix and heparin bolus. His chest pain improved. Repeat EKG is showing almost complete resolution of ST elevation. Review of Systems 2 Card: Reports: chest pain Medications/Allergies Home Medications ?Medication ?Instructions ?Recorded ?Confirmed ?Last Taken ?Type esomeprazole magnesium 20 mg 20 mg PO DAILY 03/08/25 1 05/29/24 03/13/25 History capsule,delayed release diphenhydramine 25 1 tab PO Q4H PRN Sleep 03/1403/29/25 Unknown History mg-acetaminophen 500 mg tablet (Tylenol PM Extra Strength) docusate sodium 100 mg capsule 100 mg PO BID 03/14/25 03/29/25 03/13/25 History amoxicillin 875 mg-potassium 1 tab PO BID 7 days #14 t abs 03/28/25 03/29/25 Unknown Rx clavulanate 125 mg tablet methocarbamol 500 mg tablet mg PO Q6H 03/28/25 5 Unknown History oxycodone 10 mg tablet mg PO Q8H 03/28/25 03/29/25 Unknown History polyethylene glycol 3350 17 gram 17 g PO DAILY 5 03/29/25 Unknown History oral powder packet (Miralax) nystatin 100,000 unit/gram topical 1 applic topical BI D #30 grams 03/29/25 03/29/25 Unknown Rx cream triamcinolone acetonide 0.1 % 1 applic topical BID itc sammi #80 03/29/25 03/29/25 Unknown Rx topical cream grams Allergies Allergy/AdvReac Type Severity Reaction Status Date / Time No Known Allergies Allergy Verified 03/29/25 14:33 PFSH Acute 2 PFSH: Medical History Neck pain with history of cervical spinal surgery Spinal stenosis of cervical region with radiculopathy Social History Smoking and tobacco/nicotine status: never used tobacco/nicotine Alcohol intake: never Substance/Drug Use: never Vitals/I&O/Wt Last Vital Signs Temp 97.4 F L 04/02/25 00:48 Pulse 92 04/02/25 03:03 Resp 22 H 04/02/25 03:03 BP 119/81 04/02/25 03:03 Pulse Ox 96 04/02/25 03:03 O2 Del Method Nasal Cannula 04/02/25 03:03 O2 Flow Rate 2 04/02/25 03:03 Weight last 48 hrs Weight 189 lb Physical Exam 2 Narrative: GENERAL: Patient is alert, awake and oriented x3. HEART: Regular S1 and S2. Grade 2/6 systolic murmur LUNGS: Diminished air entry bilaterally. CENTRAL NERVOUS SYSTEM: Grossly nonfocal. EXTREMITIES: Lower extremities with out edema bilaterally. Data 04/02/25 01:10 04/02/25 01:10 A&P Assessment and plan 1. ST elevation (STEMI) myocardial infarction: 2. History of colostomy: 3. Hospital-acquired pneumonia: Plan: Patient had transient ST elevations in inferior leads consistent with inferior STEMI. Will proceed with coronary angiogram with possible PCI. Risks and benefits of the procedure were discussed with patient and family. Aspirin, Plavix loaded. Heparin bolus given. Postprocedure we will obtain echocardiogram. We will consult medicine team and they will assume the primary team status post procedure as patient has multiple other medical problems with recent colon perforation, colostomy, possible pneumonia and pleural effusion. PDMP PDMP Reviewed: Not Reviewed Attestations 2 Medical Necessity Statement*: Care expected to cross 2 midnights. Patient has presented with chest pain and tach transient ST elevation in inferior leads. Going for emergent cardiac catheterization. Coding Level of Care Code Acute Code for [facility] Diagnoses ST elevation (STEMI) myocardial infarction I21.3 History of colostomy Hospital-acquired pneumonia J18.9; Y95
[2025-04-02 03:46] LABS: Troponin 5 2HR 9.59 ng/L (0-15); Troponin 5 2HR Delta 1.59 ABS# (0-10)
--- NOTE | 2025-04-02 04:13 | USCV_ITS ---
Marcial Villaseñor Age: 64 Gender: M : 1960 Exam Date: 04/02/2025 07:39 Ordering Phys: Chun Lindsey MD Technologist: Aron Pineda Exam Location: [facility] [place] Indication: ef BP: 132 / 84 HR: Rhythm: Sinus Technical Quality: Adequate MEASUREMENTS (Male / Female) Normal Values 2D ECHO LVOT Diameter 2.1 cm LV Ejection Fraction MOD 4C 63.7 % LV Ejection Fraction MOD 2C 73.2 % LV Ejection Fraction 2C AL 73.6 % LA Diameter 3.0 cm RA Systolic Volume 4C AL 29.8 ml RA Systolic Volume 4C MOD 23.9 ml Aorta at Sinotubular Diameter 3.6 cm M-MODE LA Ao Ratio MM 1.0 AV Cusp Separation MM 3.0 cm FINDINGS Left Ventricle Right Ventricle Right Atrium Left Atrium IA Septum Mitral Valve Aortic Valve Tricuspid Valve Pulmonic Valve Pericardium Aorta IVC CONCLUSIONS Limited echocardiogram performed to assess LV systolic function. LV systolic function is normal with EF of 60-65%. No regional wall motion abnormalities are seen. Bernardo Gan MD (Electronically Signed) Final Date: 02 April 2025 20:07 S
--- NOTE | 2025-04-02 04:24 | PM.PROC ---
Procedure Note: Date of procedure: 04/02/25 Pre-procedure diagnosis: STEMI Post-procedure diagnosis: other (Severe mid LAD stenosis s/p PCI with 1 stent) Procedure: Severe mid LAD stenosis s/p PCI with 1 stent. Patent RCA and left circumflex artery stenosis. Dual antiplatelet therapy with aspirin and plavix Order echocardiogram We will consult medicine team for further medical management Performing Provider: Bernardo Gan Estimated blood loss (mL): 10 Complications: None Condition: stable Disposition: ICU Coding Level of Care Code Acute Code for [facility]
--- NOTE | 2025-04-02 04:40 | P.HP_ITS ---
Providers/Chief Complaint 2 Admitting Physician: Bernardo Gan M.D Primary Care Provider: Alon Salazar MD Chief Complaint: SOB History of Present Illness As per the previous notes and the patient: Marcial Villaseñor is a 64 year old male with recent spinal surgery and colon perforation status post abdominal surgery and colostomy about 3 weeks ago came to hospital with SOB that has been there since 2-3 days associated with low grade fever that responded to tylenol. he also reported that the SOB was more or less associated with exertion diaphoresis and dizziness. But no cough or any nausea or vomiting. He has been treated in his recent hospitalization s/p surgery for parapneumonic effusion and also possible seroma of the abd wall and being followed by the surgery as outpatient and was given augmentin for it. the patient is a non smoker, no other drug abuse, and have a strong paternal history of cardiac events. rest of the ROS is unremarkable Review of Systems 2 General: Reports: 10 or more systems reviewed and unremarkable except in HPI and below Medications/Allergies Home Medications ?Medication ?Instructions ?Recorded ?Confirmed ?Last Taken ?Type esomeprazole magnesium 20 mg 20 mg PO DAILY 03/08/25 1 05/29/24 03/13/25 History capsule,delayed release diphenhydramine 25 1 tab PO Q4H PRN Sleep 03/1403/29/25 Unknown History mg-acetaminophen 500 mg tablet (Tylenol PM Extra Strength) docusate sodium 100 mg capsule 100 mg PO BID 03/14/25 03/29/25 03/13/25 History amoxicillin 875 mg-potassium 1 tab PO BID 7 days #14 t abs 03/28/25 03/29/25 Unknown Rx clavulanate 125 mg tablet methocarbamol 500 mg tablet mg PO Q6H 03/28/25 5 Unknown History oxycodone 10 mg tablet mg PO Q8H 03/28/25 03/29/25 Unknown History polyethylene glycol 3350 17 gram 17 g PO DAILY 5 03/29/25 Unknown History oral powder packet (Miralax) nystatin 100,000 unit/gram topical 1 applic topical BI D #30 grams 03/29/25 03/29/25 Unknown Rx cream triamcinolone acetonide 0.1 % 1 applic topical BID itc sammi #80 03/29/25 03/29/25 Unknown Rx topical cream grams Allergies Allergy/AdvReac Type Severity Reaction Status Date / Time No Known Allergies Allergy Verified 03/29/25 14:33 PFSH Acute 2 PFSH: Medical History Neck pain with history of cervical spinal surgery Spinal stenosis of cervical region with radiculopathy Social History Smoking and tobacco/nicotine status: never used tobacco/nicotine Alcohol intake: never Substance/Drug Use: never Vitals/I&O/Wt Last Vital Signs Temp 97.4 F L 04/02/25 00:48 Pulse 82 04/02/25 03:28 Resp 18 04/02/25 03:28 BP 116/76 04/02/25 03:28 Pulse Ox 97 04/02/25 03:28 O2 Del Method Nasal Cannula 04/02/25 03:03 O2 Flow Rate 2 04/02/25 03:03 Weight last 48 hrs Weight 85.729 kg Physical Exam 2 Narrative: General: Alert and oriented, lying in mild distress due to chest pain on 2l nc, able to complete his sentences. HEENT: Normocephalic, atraumatic, grossly unremarkable exam Cardio: normal rate rhythm, normal S1-S2 without any murmurs, rubs, or gallops and JVD normal Respiratory: normal vascular breathing on auscultation without any wheezes, stridor, rhonchi GI: Abdomen soft, nontender, nondistended,with colostomy and surgical clips of laporotomy, with mild redness but no obvious discharge or pus Neuro: intact cranial nerves motor and sensory and cerebellar/coordination function without any focal neurological deficit Behavior: Appropriate and cooperative Extremities: Adequate palpable pulses, mild trace pedal edema Data 04/02/25 01:10 04/02/25 01:10 A&P Assessment and plan 1. ST elevation (STEMI) myocardial infarction: EKG changes suggestive of inferior wall HI, loaded with high dose aspirin and plavix with heparin infusion STEMI alert, cath activated, mild hazzy LAD lesion, stenting done s/p stenting, good flow in the Coronaries, chest pain resolved aspirin 81mg od plavix 75mg od high dose statins daily PRN nitrates ( although EKG showed Inferior wall HI picture, CATH did not show lesion in that territory and could be vasospasm?) d/c heparin infusion echo telemetry maintain adequate hydration I/O monitoring follow special education teacher recommendations 2. Hospital-acquired pneumonia: given the benefit of doubt of recent hospitalisation, sob and also some infiltrates on ct chest, although no wbcs increased to start vanc and zosyn fu with blood cultures and sputum cultures FU MRSA monitor o2 sats 3. Status post lumbar laminectomy: adequate analgesia as per pain scale wound care 4. History of colostomy: to consult surgery in the morning for continuity of care of the s/p laporotomy for perf bowels as the pt is now on DAPT for STEMI monitor for any signs of bleeding monitor colostomy output wound care PDMP PDMP Reviewed: Not Reviewed Attestations 2 Medical Necessity Statement*: Marcial Villaseñor's hospital stay will require greater than 2 midnights for s/p CATH for STEMI alert Time Spent in Patient Care: Greater than 35 minutes (>than 50% of time spent in counselling and/or direct pt care on unit) . Critical Care Time: The high probability of a clinically significant, sudden or life threatening deterioration, as referenced in this documentation, required my full and direct attention, intervention and personal management. The critical care time shown is in addition to time spent performing any reported separately billable procedures and includes the following: [x] Data and vital sign review and interpretation [x ] Patient assessment, examination and intervention [x] Medication orders and management [x] Patient/Family updates as able [x] Care Coordination and Documentation. Critical Care Time (min): 40 Other Attestations: Patient condition has been discussed at length with the patient/family, I have independently reviewed the chart labs imaging/diagnostics/EKG. the goals of care and code status with the patient/family/NOK/legal customer development representative, and documented accordingly. The management has been done according to the current clinical condition with respect to patient goals of care and based on recommendations/guidelines. The patient/family has been informed about the current condition and further plan of care. Agreed with the plan of care and understood without any language barrier. Every effort was made to ensure accuracy of housekeeping laundry worker. Any obvious errors or omissions should be clarified with the author of the document. Coding Level of Care Code Critical Care >/= [address] elevation (STEMI) myocardial infarction I21.3 Hospital-acquired pneumonia J18.9; Y95 Status post lumbar laminectomy Z98.890 History of colostomy
--- NOTE | 2025-04-02 04:48 | ECG_ITS ---
[employer] [facility] Test Date: 2025-04-02 Pat Name: Marcial Villaseñor Department: Room: Gender: Male Jumpbasting Canvas Baster: : 1960 Requested By: Omar Herr Order Number: [id number] Fatima MD: Olivia Lindsey M.D. Measurements Intervals [place] Rate: 59 P: 39 LA: 142 QRS: 10 QRSD: 111 T: 64 QT: 428 QTc: 424 Interpretive Statements SINUS BRADYCARDIA MODERATE INTRAVENTRICULAR CONDUCTION DELAY [110+ ms QRS DURATION] MODERATE ST DEPRESSION [0.05+ mV ST DEPRESSION] Compared to ECG 04/02/2025 01:05:56 Intraventricular conduction delay now present ST (T wave) deviation now present Sinus rhythm no longer present Electronically Signed On 04-02-2025 18:15:17 AIRCRAFT ENGINE SPECIALIST by Olivia Lindsey M.D. [email or web address]
[2025-04-02 05:05] LABS: Estmated Average Glucose 114; Hemoglobin A1C 5.6 % (4.0-6.0)
[2025-04-02 05:28] LABS: Cholesterol 157 mg/dL (0-200); HDL Cholesterol 29 mg/dL (60-100); Magnesium 2.1 mg/dL (1.7-2.3); Triglycerides 167 mg/dL (0-150)
[2025-04-02] MEDS: pantoprazole 40 mg SDV IVP (05:52)
[2025-04-02] MEDS: piperacillin-tazobactam 3.375 GM in sodium chloride 0.9% (plus) 50 ML IV ×3 (08:12→23:01)
--- NOTE | 2025-04-02 08:48 | ECG_ITS ---
[facility] 2025-04-02 Pat Name: Marcial Villaseñor Department: Room: Gender: Male Oncology Consultant: : 1960 Requested By: Omar Herr Order Number: [id number] Fatima MD: Olivia Lindsey M.D. Measurements Intervals [place] Rate: 86 P: 38 [place]: 159 QRS: -4 QRSD: 95 T: 23 QT: 373 QTc: 447 Interpretive Statements SINUS RHYTHM Compared to ECG 04/02/2025 02:37:14 Sinus bradycardia no longer present Intraventricular conduction delay no longer present ST (T wave) deviation no longer present Electronically Signed On 04-02-2025 18:15:05 TUBE HEATER by Olivia Lindsey M.D. [email or web address]
[2025-04-02 09:12] LABS: MRSA PCR OZH (swab) NOT DETECTED (Negative)
--- NOTE | 2025-04-02 10:27 | P.PN_ITS ---
Subjective 2 Subjective: Patient is seen this morning on the in the ICU. He is a 62-year-old male who was admitted yesterday with complaint of difficulty breathing. Found to have acute STEMI, he was taken to the [facility]. Currently, he reports remarkable improvement in symptoms. Has no new complaints. Medications: Medication Review Details: Currently on Zosyn, vancomycin, Plavix, aspirin, and other as needed medications. Vitals/I&O/Wt Last Vital Signs Temp 97.4 F L 04/02/25 00:48 Pulse 66 04/02/25 07:26 Resp 20 H 04/02/25 07:26 BP 123/84 04/02/25 07:26 Pulse Ox 96 04/02/25 06:30 O2 Del Method Room Air 04/02/25 04:44 O2 Flow Rate 2 04/02/25 03:03 04/01/25 04/02/25 04/02/25 22:59 06:59 14:59 Intake Total 450 / 450 Output Total 650 / 650 Balance -650 / -650 450 / 450 Weight last 48 hrs Weight 84.368 kg Weight 84.368 kg Weight 84.5 kg Weight 85.729 kg Physical Exam 2 Const: COMMON NORMALS: no acute distress, patient oriented x3 and alert Neck/C-Spine: COMMON NORMALS: no JVD Chest: CHEST: Yes Symmetrical chest wall rise Resp: COMMON NORMALS: normal respiratory effort and clear to auscultation bilaterally AUSCULTATION: clear to auscultation bilaterally Cardio: COMMON NORMALS: no JVD, regular rate and regular rhythm RATE: r egular rate RHYTHM: regular rhythm GI: COMMON NORMALS: Normal to inspection, nondistended, normoactive bowel sounds present Neuro: COMMON NORMALS: patient oriented x3 SENSORIUM/ORIENTATION: Yes alert Skin: COMMON NORMALS: no rashes or lesions noted GENERAL SKIN EXAM: no rashes or lesions noted Data 04/02/25 10:10 04/02/25 10:10 Other data: Recent lab and imaging results done after admission reviewed. Nothing new at the moment. A&P Assessment and plan 1. ST elevation (STEMI) myocardial infarction: 2. Hospital-acquired pneumonia: Plan: Stable patient. The H&P of the admitting physician reviewed. The Consultation note and Procedure Note of the cardiology is also reviewed. Nothing to add or subtract from my standpoint at this time. Further plans to be adjusted as clinically patient evolves. Anticipating discharge tomorrow. PDMP PDMP Reviewed: Not Reviewed Attestations 2 Medical Necessity Statement*: See above. Coding Level of Care Code Acute Code for [facility] Diagnoses ST elevation (STEMI) myocardial infarction I21.3 Hospital-acquired pneumonia J18.9; Y95
[2025-04-02 10:42] LABS: Hematocrit 35.2 % (37-53); Hemoglobin 11.40 g/dL (11.27-16.99); Mean Corpuscular HGB Conc 32.4 g/dL (30-55); Mean Corpuscular Hemoglobin 28.4 pg (27-33); Mean Corpuscular Volume 87.8 fl (82-101); Nucleated Red Blood Cells % 0 %; Platelet Count 414 10^3/cmm (157-399); Red Blood Count 4.01 10^6/uL (3.85-5.65); White Blood Count 6.53 10^3/uL (3.29-11.43)
[2025-04-02 11:07] LABS: Troponin 5 6HR 11.64 ng/L (0-15); Troponin 5 6HR Delta 3.64 ng/L (0-12)
[2025-04-02 11:23] LABS: Alanine Aminotransferase 40 U/L (0-41); Albumin Level 3.5 g/dL (3.5-5.2); Alkaline Phosphatase 131 U/L (40-130); Anion Gap 16.0 (5-19); Aspartate Amino Transferase 37 U/L (0-40); Blood Urea Nitrogen 10 mg/dL (8-23); Calcium 8.8 mg/dL (8.5-10.5); Carbon Dioxide 21 mmol/L (22-29); Chloride 103 mmol/L (98-107); Globulin 2.9 g/dL (1.3-4.6); Glucose 92 mg/dL (65-115); Osmolality Calculated 281 mOsm/kg (285-295); Potassium 4.0 mmol/L (3.5-5.1); Sodium 136 mmol/L (136-145); Total Protein 6.4 g/dL (6.6-8.7)
--- NOTE | 2025-04-02 14:06 | PHA.VACGOAL ---
Vancomycin Goal - Goal Vancomycin Goal:: 15-20 mg/L Vancomycin Indication:: Pneumonia - Therapy Day of therpy:: Day []of [] . Actual body weight (kg): 186 lb - Data Labs: WBC 6.53 10^3/uL (3.29-11.43) 04/02/25 10:10 RBC 4.01 10^6/uL (3.85-5.65) 04/02/25 10:10 Hgb 11.40 g/dL (11.27-16.99) 04/02/25 10:10 Hct 35.2 % (37-53) L 04/02/25 10:10 MCV 87.8 fl (82-101) 04/02/25 10:10 MCH 28.4 pg (27-33) 04/02/25 10:10 MCHC 32.4 g/dL (30-55) 04/02/25 10:10 RDW 12.4 % (12.1-15.1) 04/02/25 10:10 Sodium 136 mmol/L (136-145) 04/02/25 10:10 Potassium 4.0 mmol/L (3.5-5.1) 04/02/25 10:10 Chloride 103 mmol/L (98-107) 04/02/25 10:10 Carbon Dioxide 21 mmol/L (22-29) L 04/02/25 10:10 Anion Gap 16.0 (5-19) 04/02/25 10:10 BUN 10 mg/dL (8-23) 04/02/25 10:10 Creatinine 0.6 mg/dL (0.7-1.2) L 04/02/25 10:10 GFR Calculation 136.5 mL/min (90-130) H 04/02/25 10:10 Treatment plan:: new consult Regimen:: 2000 mg now and 1000 mg Q8H MAINTENANCE
[2025-04-02] MEDS: polyethylene glycol 3350 Pkt 17 gm PO (20:20)
[2025-04-02] MEDS: oxyCODONE-APAP 5-325 mg Tablet 1 TAB PO (20:20)
[2025-04-03] VITALS (15 sets, daily range): BP systolic 104–146; BP diastolic 67–94; PULSE 73–98; RESP 10–30; TEMP 36.8–37.1; O2SAT 93–96
[2025-04-03] MEDS: pantoprazole 40 mg SDV IVP (05:13)
[2025-04-03] MEDS: polyethylene glycol 3350 Pkt 17 gm PO (05:13)
[2025-04-03] MEDS: piperacillin-tazobactam 3.375 GM in sodium chloride 0.9% (plus) 50 ML IV (08:55)
--- NOTE | 2025-04-03 09:57 | P.PN_ITS ---
<Statement entered by Bernardo aGn M.D - 04/07/25 19:28> Patient was cared for in conjunction with an advanced practice practitioner. I reviewed the chart and all pertinent data including imaging, telemetry, and laboratory results. I discussed the patient in detail with the advanced practice practitioner. Please see their note for agreed upon plan of care and results for the patient. Subjective 2 Subjective: He has done well overnight, sitting up in the chair this morning. No chest pain or shortness of breath. No complications with right radial cath site. Vitals/I&O/Wt Last Vital Signs Temp 98.7 F 04/03/25 05:00 Pulse 81 04/03/25 06:00 Resp 10 L 04/03/25 06:00 BP 109/75 04/03/25 06:00 Pulse Ox 95 04/03/25 06:00 O2 Del Method Room Air 04/03/25 05:00 O2 Flow Rate 2 04/02/25 03:03 04/02/25 04/03/25 04/03/25 22:59 06:59 14:59 Intake Total 540 / 3422 540 / 3422 250 / 250 Output Total 800 / 2150 600 / 2150 Balance -260 / 1272 -60 / 1272 250 / 250 Weight last 48 hrs Weight 188 lb 9.561 oz Weight 186 lb Weight 186 lb Weight 186 lb 4.65 oz Weight 189 lb Physical Exam 2 Const: COMMON NORMALS: no acute distress and patient oriented x3 GENERAL APPEARANCE: cooperative ORIENTATION/CONSCIOUSNESS: Yes awake, Yes oriented to person, Yes oriented to place and Yes oriented to time Chest: COMMONS NORMALS: normal inspection of the chest and normal palpation of entire chest wall CHEST: Yes Symmetrical chest wall rise Resp: COMMON NORMALS: normal respiratory effort, No retractions, No use of accessory muscles and clear to auscultation bilaterally AUSCULTATION: clear to auscultation bilaterally Cardio: COMMON NORMALS: regular rate, regular rhythm, S1 normal heart sound present, S2 normal heart sound present, No gallops present (Cardio), No clicks present (Cardio), No murmurs present (Cardio) and No rub (Cardio) RATE: r egular rate RHYTHM: regular rhythm HEART SOUNDS: S1 normal heart sound present and S2 normal heart sound present PERIPHERAL PULSES: radial pulses present positive right 2+ and femoral pulses present positive right 2+ Neuro: COMMON NORMALS: patient oriented x3 and moves all extremities S ENSORIUM/ORIENTATION: Yes oriented to person, Yes oriented to place and Yes oriented to time Skin: WOUNDS: Yes surgical site (no hematoma palpable) Details: no odor Data 04/02/25 10:10 04/02/25 10:10 A&P Assessment and plan 1. ST elevation (STEMI) myocardial infarction: Plan: He is s/p stent to the LAD post STEMI. LVEF is normal, no chest pain since procedure, he is feeling well today. He can discharge home, continuing aspirin, Plavix. Will add atorvastatin 80mg daily. LFT normal. Follow up in cardiology clinic in 2 weeks. PDMP PDMP Reviewed: Not Reviewed Attestations 2 Medical Necessity Statement*: Possible discharge home Coding Level of Care Code Acute Code for [facility] Diagnoses ST elevation (STEMI) myocardial infarction I21.3
--- NOTE | 2025-04-03 11:21 | P.DS_ITS ---
Discharge Providers Date of Admission: 04/02/25 04:33 Date of Discharge: April 03, 2025 Attending Provider at Admission: Bernardo Gan M.D Attending Provider at Discharge: Kel Carrizales MD Primary Care Provider: Alon Salazar MD Diagnoses at Discharge Discharge Diagnosis 1. ST elevation (STEMI) myocardial infarction: 2. Status post coronary artery stent placement: 3. Hospital-acquired pneumonia: Reason for Visit Reason for Visit: SOB Brief History: Patient presented with difficulty breathing and chest pain. Further evaluation revealed apparent acute STEMI, therefore requiring cardiology consult. Patient had an immediate left heart cath, which revealed apparent severe mid LAD stenosi s s/p PCI with 1 stent and patent RCA and left circumflex artery stenosis. Hospital Course Hospital Course Patient was further observed on telemetry, while other concomitant symptoms were treated empirically. Patient agreed to do well, and remained stable on patient's morning. Consequently, cardiology recommended patient to be discharged home on dual antiplatelets. Patient therefore discharged. Physical Exam Narrative: General: Awake and alert. No obvious distress. Chest: No significant crackles appreciated. Other physical findings within normal limits. Discharge Data Studies Completed and Pending Completed Studies During Hospitalization Category Date Time Status CTA chest CT abdomen pelvis [CT Angio Chest + Abdomen Cat Scan 04/02/25 01:06 Completed Pelvis w/ contrast; 42716 + 18016] Stat XR chest 1V portable [id number] Stat Exams 04/02/25 00:50 Completed CV. echo limited [id number] Stat Ultrasound 04/02/25 04:13 Completed Pending at discharge Category Date Time Status [employer] request for service Stat Exams 04/02/25 03:17 Taken Blood Culture Stat Lab 04/02/25 01:15 Received Sputum Culture and Gram Stain Stat Lab 04/02/25 04:51 Uncollected Vancomycin Trough Timed Lab 04/03/25 13:00 Ordered Radiology Impressions Chest X-Ray 04/02/25 00:50 IMPRESSION: Small bilateral pleural effusions. Chest/Abdomen/Pelvis CT 04/02/25 01:06 IMPRESSION: Airspace consolidations at the lung bases, left greater than right, concerning for multilobar pneumonia. Small left parapneumonic effusion.No pulmonary embolism. IMPRESSION: 1. Colectomy with left lower quadrant colostomy. Parastomal hernia measures approximately 4.6 x 4.5 cm. Minimal fat stranding in the peristomal hernia, correlate for inflamed exiting loop (colitis). 2. No small bowel obstruction. Vitals Last Vital Signs Temp 98.2 F 04/03/25 08:00 Pulse 97 04/03/25 10:00 Resp 19 H 04/03/25 10:00 BP 131/94 04/03/25 10:00 Pulse Ox 95 04/03/25 10:00 O2 Del Method Room Air 04/03/25 08:00 O2 Flow Rate 2 04/02/25 03:03 Discharge Plan Discharge Patient Disposition: Home Condition: Good Prescriptions: New clopidogrel 75 mg Tablet 75 mg PO DAILY Qty: 30 4RF aspirin 81 mg Tablet,Delayed Release (Dr/Ec) 81 mg PO DAILY Qty: 100 3RF atorvastatin [Lipitor] 80 mg tablet 80 mg PO DAILY Qty: 90 3RF Continued nystatin 100,000 unit/gram cream 1 applic topical BID Qty: 30 1RF methocarbamol 500 mg tablet 500 mg PO Q6H PRN (Reason: muscle spasms) polyethylene glycol 3350 [Miralax] 17 gram powder in packet 17 g PO DAILY oxycodone 10 mg tablet 10 mg PO Q8H PRN (Reason: Pain) amoxicillin-pot clavulanate 875-125 mg tablet 1 tab PO BID 7 Days Qty: 14 0RF esomeprazole magnesium 20 mg capsule,delayed release(DR/EC) 20 mg PO DAILY docusate sodium 100 mg capsule 100 mg PO BID diphenhydramine-acetaminophen [Tylenol PM Extra Strength] 25-500 mg Tablet 1 tab PO Q4H PRN (Reason: Sleep) Rx Instructions: administer while awake oxycodone-acetaminophen 10-325 mg tablet 1 tab PO Q4H PRN (Reason: Pain) triamcinolone acetonide 0.1 % cream 1 applic topical BID PRN (Reason: itching) Director Of [employer] OK for DC: Cardiology Discharge Order = DC NOW: Discharge Order (Routine); Ordered 04/03/25 Ordered By: Kel Carrizales Referrals: Alon Salazar MD [Primary Care Provider, Family Practice] - 7-10 days Referral Note: The DR office will call with the follow up gareth. Elissa Guerrero FNP [Nurse Practitioner, Cardiology] - 2 weeks Referral Note: The DR office will call you with the follow up gareth. Discharge Diet: Cardiac and Low Cholesterol Discharge Activity: Increase activity as tolerated Patient Instructions: Aspirin (By mouth), Atorvastatin (By mouth), Clopidogrel (By mouth), Coronary Angioplasty (DC), Opioid Safety, Patient Portal & Gareth Instructions Activity Restrictions/Additional Instructions: Follow-up with your primary care provider within the next 2 to 4 weeks/as needed. Follow-up with chain tender as directed. Strongly advised to take medications as prescribed, except as otherwise directed by other physicians. Discharge Attestations Time Spent in Discharge Care*: less than 30 min Status at Discharge: Cognitive status at discharge: cognitively intact , Behavioral status at discharge: cooperative , Quality Metrics Clinical Quality Measures [ Acute Myocardial Infaction { Clinical Trial Participant: No; Contraindication to aspirin: None; Aspirin prescribed; Contraindication to statin: None; Statin prescribed; Contraindication to PCI: None; PCI performed; Contraindication to Fibrinolytics: Alternative treatment initiated}] Coding Level of Care Code Acute Code for [facility] Diagnoses ST elevation (STEMI) myocardial infarction I21.3 Status post coronary artery stent placement Z95.5 Hospital-acquired pneumonia J18.9; Y95
== END 2025-04-03 13:01 | disposition home or self-care (01) | DRG 321 ==
LOC: ER 03:10 → CCL 03:20 → ICU 04:33
PROVIDERS: Student in an Organized Health Care Education/Training Program; Admitting Provider Internal Medicine; Emergency Provider Emergency Medicine; PCP Family Medicine; Visit Provider Family Medicine
PROC: 027034Z Dilation of Coronary Artery, One Artery with Drug-eluting Intraluminal Device, Percutaneous Approach (ICD-10-PCS; principal; 2025-04-02 03:30)
PROC: 027034Z Dilation of Coronary Artery, One Artery with Drug-eluting Intraluminal Device, Percutaneous Approach (ICD-10-PCS; 2025-04-02 03:30)
DX: I21.02 ST elevation (STEMI) myocardial infarction involving left anterior descending coronary artery (principal); J18.9 Pneumonia, unspecified organism; Y95 Nosocomial condition; I25.10 Atherosclerotic heart disease of native coronary artery without angina pectoris; M48.02 Spinal stenosis, cervical region; M54.12 Radiculopathy, cervical region; K43.5 Parastomal hernia without obstruction or gangrene; Z90.49 Acquired absence of other specified parts of digestive tract; Z93.3 Colostomy status; Z98.1 Arthrodesis status; Z79.82 Long term (current) use of aspirin; Z79.891 Long term (current) use of opiate analgesic
CPT/HCPCS: 36415; 71045; 71275; 74177; 80053; 80061; 83036; 83605; 83735; 83880; 84484; 85025; 85347; 87040; 87637; 93005; 93308; 93458; 96365; 96367; 96375; 96376; 99152; 99153; 99291; C1725; C1769; C1874; C1887; C1894; C9606; J1644; J2250; J2270; J2405; J2470; J2543; J3010; J3372; J3373; J3480; J3490; J7030; J7050; J9999; Q9967

== ENCOUNTER 2025-04-16 12:07 | Outpatient (CLI) | payer BC, SELFPAY ==
--- NOTE | 2025-04-16 12:15 | USR_ITS ---
PROCEDURE INFORMATION: Exam: US Duplex Right Lower Extremity Arteries Or Arterial Bypass Grafts Exam date and time: 04/16/2025 12:15 PM Age: 64 years old Clinical indication: Other: Polar sensation in the right leg; Additional info: Numbness right leg and coldness TECHNIQUE: Imaging protocol: Right Real-time duplex scan of the arteries or arterial bypass grafts of the right lower extremity with 2-D ferris scale, color Doppler flow and spectral waveform analysis. Images documented and saved. COMPARISON: US soft tissue/extremity [id number] 11/23/2024 11:05 AM FINDINGS: Right common femoral artery: No occlusion or significant stenosis. Normal waveform. No pseudoaneurysm in the inguinal region. Right superficial femoral artery: No occlusion or significant stenosis. Normal waveform. Right popliteal artery: No occlusion or significant stenosis. Normal waveform. Right calf/foot arteries: No occlusion or significant stenosis in the visualized arteries. Normal waveforms. Dorsalis pedis artery is patent. Soft tissues: No hematoma or collection. Right leg LADAN 1.2 US/[place] [id number] IMPRESSION: No stenosis or occlusion.
== END 2025-04-16 12:08 | disposition home or self-care (01) ==
LOC: RAD 12:08
PROVIDERS: PCP Family Medicine; Visit Provider Surgery
DX: I73.9 Peripheral vascular disease, unspecified (principal)
CPT/HCPCS: 93926

== ENCOUNTER 2025-04-25 14:04 | Outpatient (CLI) | payer BC, SELFPAY ==
--- NOTE | 2025-04-25 14:12 | XR_ITS ---
WS: [id number] Exam: XR chest 2V* [id number] Date/Time of Exam: 04/25/2025 2:30 PM Reason For Exam: continued shortness of breath s/p FL Comparison 04/02/2025. The lungs are fully expanded. Questionable 1 cm nodule seen near the LEFT costophrenic angle. Cardiomediastinal silhouette is unremarkable. Signs of coronary artery stenting. Bony structures are intact. Fusion hardware in the C-spine. XR/XR chest 2V* [id number] IMPRESSION: 1. Questionable 1 cm soft tissue nodule seen near the LEFT costophrenic angle. A nonemergent PA and lateral chest radiograph in 7 to 10 days for follow-up is suggested. If this is still present, contrast chest CT may be necessary for fur ther work-up. 2. No acute cardiopulmonary process identified otherwise.
== END 2025-04-25 14:05 | disposition home or self-care (01) ==
PROVIDERS: PCP Family Medicine; Visit Provider Family Medicine
DX: Z95.5 Presence of coronary angioplasty implant and graft (principal)
CPT/HCPCS: 71046; 85025